=== PATIENT | female | born 1960 | race African-American/Black ===

== ENCOUNTER 2016-09-15 11:06 | Observation (INO) | payer BC ==
[~2016-09-15] VITALS: Ht 165.1 cm; Wt 77.6 kg
[~2016-09-15 11:06] MED LIST: lisinopril; multivitamin; prevacid
--- NOTE | 2016-09-15 11:27 | PHYS DOC ---
Past Medical History Past Medical History: GERD, Hypertension Additional Past Medical Histor: ischemic colitis Past Surgical History: Hysterectomy Additional Past Surgical Histo: LIGAMENTS AND TENDONS REPAIR ON RIGHT ARM Alcohol Use: Occasionally Drug Use: None Adult General Chief Complaint Chief Complaint: MULTIPLE COMPLAINTS [facility] HPI Patient is a 55 year old female who presents with right sided substernal chest pain that went to her right shoulder and into her jaw. It started this morning partially hour prior to arrival. She states is a sharp stabbing pain. Nothing makes the pain better or worse. Occasionally she felt short of breath. She denies fevers chills nausea or vomiting. Review of Systems Review of Systems Constitutional: Denies fever or chills [] Eyes: Denies change in visual acuity, redness, or eye pain [] HENT: Denies nasal congestion or sore throat [] Respiratory: Denies cough or shortness of breath [] Cardiovascular: No additional information not addressed in HPI [] GI: Denies abdominal pain, nausea, vomiting, bloody stools or diarrhea [] : Denies dysuria or hematuria [] Musculoskeletal: Denies back pain or joint pain [] Integument: Denies rash or skin lesions [] Neurologic: Denies headache, focal weakness or sensory changes [] Endocrine: Denies polyuria or polydipsia [] Current Medications Current Medications Current Medications Medications (Trade) Dose Ordered Sig/Annika Start Time Stop Time Status Last Admin Dose Admin Info (Do NOT chart on this entry -- for MONITORING) 1 each PRN DAILY PRN 09/15/16 13:15 09/17/16 13:14 Iohexol (Omnipaque 300 Mg/ml) 75 ml 1X ONCE 09/15/16 13:15 09/15/16 13:16 DC 09/15/16 15:49 75 ML Morphine Sulfate 4 mg PRN Q15MIN PRN 09/15/16 12:00 09/16/16 04:00 DC 09/15/16 12:06 4 MG Nitroglycerin (Nitrostat) 0.4 mg PRN Q5MIN PRN 09/15/16 12:00 09/16/16 11:59 09/15/16 12:05 0.4 MG Ondansetron HCl (Zofran) 4 mg 1X ONCE 09/15/16 12:00 09/15/16 12:01 DC 09/15/16 12:06 4 MG Sodium Chloride 1,000 ml @ 100 mls/hr Q10H 09/15/16 11:47 09/15/16 21:46 DC 09/15/16 12:07 100 MLS/HR Allergies Allergies Physical Exam Physical Exam Constitutional: Well developed, well nourished, no acute distress, non-toxic appearance. [] HENT: Normocephalic, atraumatic, bilateral external ears normal, oropharynx moist, no oral exudates, nose normal. [] Eyes: PERRLA, EOMI, conjunctiva normal, no discharge. [] Neck: Normal range of motion, no tenderness, supple, no stridor. [] Cardiovascular:Heart rate regular rhythm, no murmur [] Lungs & Thorax: Bilateral breath sounds clear to auscultation [] Abdomen: Bowel sounds normal, soft, no tenderness, no masses, no pulsatile masses. [] Skin: Warm, dry, no erythema, no rash. [] Back: No tenderness, no CVA tenderness. [] Extremities: No tenderness, no cyanosis, no clubbing, ROM intact, no edema. [] Neurologic: Alert and oriented X 3, normal motor function, normal sensory function, no focal deficits noted. [] Psychologic: Affect normal, judgement normal, mood normal. [] Current Patient Data Vital Signs Vital Signs Date Time Temp Pulse Resp B/P (MAP) Pulse Ox O2 Delivery O2 Flow Rate FiO2 09/15/16 13:20 94 126/65 (85) 98 Room Air 09/15/16 12:06 16 09/15/16 11:20 98.2 98.2 Lab Values Laboratory Tests Test 09/15/16 12:00 09/15/16 12:20 White Blood Count 5.7 x10^3/uL (4.0-11.0) Red Blood Count 4.29 x10^6/uL (3.50-5.40) Hemoglobin 12.4 g/dL (12.0-15.5) Hematocrit 37.0 % (36.0-47.0) Mean Corpuscular Volume 86 fL (79-100) Mean Corpuscular Hemoglobin 29 pg (25-35) Mean Corpuscular Hemoglobin Concent 34 g/dL (31-37) Red Cell Distribution Width 14.2 % (11.5-14.5) Platelet Count 282 x10^3/uL (140-400) Neutrophils (%) (Auto) 50 % (31-73) Lymphocytes (%) (Auto) 33 % (24-48) Monocytes (%) (Auto) 9 % (0-9) Eosinophils (%) (Auto) 8 % (0-3) H Basophils (%) (Auto) 1 % (0-3) Neutrophils # (Auto) 2.9 x10^3uL (1.8-7.7) Lymphocytes # (Auto) 1.9 x10^3/uL (1.0-4.8) Monocytes # (Auto) 0.5 x10^3/uL (0.0-1.1) Eosinophils # (Auto) 0.4 x10^3/uL (0.0-0.7) Basophils # (Auto) 0.0 x10^3/uL (0.0-0.2) Prothrombin Time 12.5 SEC (11.7-14.0) Prothrombin Time INR 1.0 (0.8-1.1) D-Dimer (Olamide) 0.72 ug/mlFEU (0.00-0.50) H Sodium Level 145 mmol/L (136-145) Potassium Level 4.0 mmol/L (3.5-5.1) Chloride Level 105 mmol/L (98-107) Carbon Dioxide Level 36 mmol/L (21-32) H Anion Gap 4 (6-14) L Blood Urea Nitrogen 19 mg/dL (7-20) Creatinine 0.8 mg/dL (0.6-1.0) Estimated GFR (Cockcroft-Gault) 90.4 Glucose Level 92 mg/dL (70-99) Calcium Level 9.9 mg/dL (8.5-10.1) Magnesium Level 2.3 mg/dL (1.8-2.4) Total Bilirubin 0.3 mg/dL (0.2-1.0) Direct Bilirubin 0.1 mg/dL (0.0-0.2) Aspartate Amino Transferase (AST) 16 U/L (15-37) Alanine Aminotransferase (ALT) 24 U/L (14-59) Alkaline Phosphatase 61 U/L (46-116) Creatine Kinase 100 U/L (26-192) Creatine Kinase MB (Mass) 0.8 ng/mL (0.0-3.6) Creatine Kinase MB Relative Index 0.8 % (0-4) Troponin I Quantitative < 0.017 ng/mL (0.000-0.055) RK-Ccf-Z-Type Natriuretic Peptide 14 pg/mL (0-124) Total Protein 7.7 g/dL (6.4-8.2) Albumin 4.1 g/dL (3.4-5.0) Lipase 63 U/L (73-393) L Thyroid Stimulating Hormone (TSH) 1.271 uIU/mL (0.358-3.74) Urine Collection Type Unknown Urine Color Yellow Urine Clarity Clear Urine pH 7.5 Urine Specific [place] 1.010 Urine Protein Negative mg/dL (NEG-TRACE) Urine Glucose (UA) Negative mg/dL (NEG) Urine Ketones (Stick) Negative mg/dL (NEG) Urine Blood Trace (NEG) Urine Nitrite Negative (NEG) Urine Bilirubin Negative (NEG) Urine Urobilinogen Dipstick 0.2 mg/dL (0.2 mg/dL) Urine Leukocyte Esterase Negative (NEG) Urine RBC 3-5 /HPF (0-2) Urine WBC 0 /HPF (0-4) Urine Squamous Epithelial Cells Mod /LPF Urine Bacteria 0 /HPF (0-FEW) Urine Opiates Screen Pos (NEG) Urine Methadone Screen Neg (NEG) Urine Barbiturates Neg (NEG) Urine Phencyclidine Screen Neg (NEG) Urine Amphetamine/Methamphetamine Neg (NEG) Urine Benzodiazepines Screen Neg (NEG) Urine Cocaine Screen Neg (NEG) Urine Cannabinoids Screen Neg (NEG) Urine Ethyl Alcohol Neg (NEG) Laboratory Tests 09/15/16 12:00 Laboratory Tests 09/15/16 12:00 EKG EKG EKG shows sinus tachycardia [address] elevations or T-wave inversions, normal axis, QTC 460 ms, as interpreted by me. Radiology/Procedures Radiology/Procedures [facility] [address] [place], [place] [id number] IMAGING REPORT Signed PATIENT: ALTAGRACIA FLORES ACCOUNT: [id number] : 1960 LOCATION: ER AGE: 55 SEX: F EXAM STATUS: REG ER ORD. PHYSICIAN: DAPHNE TREVINO MD REASON: CHEST PAIN WITH RIGHT NECK AND ARM PAIN PROCEDURE: PORTABLE CHEST 1V Portable AP upright view CXR: Clinical indications: Right-sided chest pain and neck pain and arm pain. Comparison: Chest x-ray for abdominal series dated April 23, 2015.. Findings: No acute lung infiltrate or pleural effusion or pulmonary edema or lung mass or pneumothorax is seen. The heart size, pulmonary vasculature, mediastinum and both chelsea are stable. Impression: No acute radiographic abnormality is seen. DICTATED and SIGNED BY: RANDALL MADRIGAL MD DATE: 09/15/16 1234 CC: DAPHNE TREVINO MD; DENZEL HERNANDEZ MD ~ Impressions: Chest pain Course & Med Decision Making Course & Med Decision Making Pertinent Labs and Imaging studies reviewed. (See chart for details) EKG sinus tachycardia, remainder of her labs are nonacute. Except for d-dimer is elevated. Chest CT angio is pending at this time. Patient's being admitted to Dr. Hernandez with CT angiogram pending. Interim orders have been written. Patient's in stable condition this time. Dragon Disclaimer Dragon Disclaimer This electronic medical record was generated, in whole or in part, using a voice recognition dictation system. Departure Departure Referrals: DENZEL HERNANDEZ MD (PCP) DAPHNE TREVINO MD Sep 15, 2016 11:27
[2016-09-15] MEDS ORDERED: IV NORMAL SALINE 1000ML BAG 1,000 ML IV SCH (11:47)
[2016-09-15] MEDS ORDERED: MORPHINE SULFATE 4 MG/ML DISP.SYRIN. IV/SQ PRN (12:00)
[2016-09-15] MEDS ORDERED: NITROGLYCERIN SUBLINGUAL 0.4 MG BOTTLE OF 25. SL PRN (12:00)
[2016-09-15] MEDS ORDERED: ONDANSETRON PF 4 MG/2 ML VIAL. IV ONE (12:00)
[2016-09-15 12:23] LABS: BASO % 1 % (0-3); EOS % 8 % (0-3); HEMOGLOBIN 12.4 g/dL (12.0-15.5); LYMPH # 1.9 x10^3/uL (1.0-4.8); LYMPH % 33 % (24-48); MEAN CORPUSCULAR HEMOGLOBIN 29 pg (25-35); MEAN CORPUSCULAR HGB CONC 34 g/dL (31-37); MEAN CORPUSCULAR VOLUME 86 fL (79-100); MONO % 9 % (0-9); NEUT % 50 % (31-73); PLATELET COUNT 282 x10^3/uL (140-400); RED BLOOD COUNT 4.29 x10^6/uL (3.50-5.40); RED CELL DISTRIBUTION WIDTH 14.2 % (11.5-14.5); WHITE BLOOD COUNT 5.7 x10^3/uL (4.0-11.0)
[2016-09-15 12:31] LABS: CALCIUM 9.9 mg/dL (8.5-10.1); CREATININE 0.8 mg/dL (0.6-1.0); GFR 90.4
[2016-09-15 12:35] LABS: BARBITURATES NEG (NEG); BENZODIAZEPINES NEG (NEG); CANNABINOIDS NEG (NEG); COCAINE NEG (NEG); METHADONE NEG (NEG); OPIATES POS (NEG); PHENCYCLIDINE NEG (NEG)
--- NOTE | 2016-09-15 12:38 | RAD ---
Portable AP upright view CXR: Clinical indications: Right-sided chest pain and neck pain and arm pain. Comparison: Chest x-ray for abdominal series dated April 23, 2015.. Findings: No acute lung infiltrate or pleural effusion or pulmonary edema or lung mass or pneumothorax is seen. The heart size, pulmonary vasculature, mediastinum and both chelsea are stable. Impression: No acute radiographic abnormality is seen.
[2016-09-15 12:39] LABS: PROTHROMBIN TIME PATIENT 12.5 SEC (11.7-14.0)
[2016-09-15 12:41] LABS: ALBUMIN 4.1 g/dL (3.4-5.0); CKMB MASS 0.8 ng/mL (0.0-3.6); DIRECT BILIRUBIN 0.1 mg/dL (0.0-0.2); MAGNESIUM 2.3 mg/dL (1.8-2.4); TOTAL BILIRUBIN 0.3 mg/dL (0.2-1.0); TOTAL PROTEIN 7.7 g/dL (6.4-8.2)
[2016-09-15 12:50] LABS: BILIRUBIN,URINE NEGATIVE (NEG); GLUCOSE,URINE NEGATIVE (NEG); NITRITE,URINE NEGATIVE (NEG); PH,URINE 7.5; PROTEIN,URINE NEGATIVE (NEG-TRACE); UROBILINOGEN,URINE 0.2 mg/dL (0.2 mg/dL)
[2016-09-15 13:15] LABS: BACTERIA,URINE 0 /HPF (0-FEW); SQUAMOUS EPITHELIAL CELL,UR MOD /LPF; WBC,URINE 0 /HPF (0-4)
[2016-09-15] MEDS ORDERED: IOHEXOL 300 MG/ML 75 ML VIAL IV ONE (13:15)
[2016-09-15] MEDS ORDERED: CONTRAST GIVEN MC PRN (13:15)
[2016-09-15] MEDS ORDERED: LIDOCAINE 1% / SOD BICARB 8.4% 20 ML VIAL. IJ ONE (14:45)
[2016-09-15 16:00] VITALS: BP 121/74
[2016-09-15] MEDS ORDERED: ONDANSETRON PF 4 MG/2 ML VIAL. IV PRN (16:00)
--- NOTE | 2016-09-15 16:00 | EKG ---
[facility] [address] [place] [address] Test Date: 2016-09-15 Test Time: 11:23:16 Pat Name: ALTAGRACIA FLORES Department: Room: 512 1 Gender: F Director Critical Care: : 1960 Requested By: DAPHNE TREVINO Order Number: [id number] Reading MD: Tiana Jurado Measurements Intervals [place] Rate: 104 P: 43 [place]: 152 QRS: 10 QRSD: 90 T: 62 QT: 356 QTc: 468 Interpretive Statements SINUS TACHYCARDIA INCOMPLETE RIGHT BUNDLE BRANCH BLOCK Electronically Signed On 09-18-2016 21:01:24 CDT by Tiana Jurado
--- NOTE | 2016-09-15 16:10 | RAD ---
Indication: Shortness of air and chest pain. Axial imaging through the chest was performed after the administration of intravenous contrast and utilizing the CT angiography protocol. Multiplanar, 3-D and MIP reformations were also performed. The study is somewhat compromised due to suboptimal opacification of the pulmonary arterial system. Central pulmonary arteries are without evidence of thromboembolism. No filling defects are seen. The more distal pulmonary arteries cannot be evaluated. The thoracic aorta is without evidence of dissection. The heart is enlarged. No pericardial or pleural fluid is detected. Parenchymal evaluation demonstrates some calcified granulomas in the right middle lobe and lingula. No infiltrates are detected. The upper abdomen shows rounded low densities in the right lobe of the liver, presumably cysts. Impression: 1. Suboptimal opacification of the pulmonary arterial system but no central emboli are identified. No acute feature is detected. PQRS Compliance Statement: One or more of the following individualized dose reduction techniques were utilized for this examination: 1. Automated exposure control 2. Adjustment of the mA and/or kV according to patient size 3. Use of iterative reconstruction technique
[2016-09-15] MEDS: HYDROCORTISONE ACETATE 25 MG SUPP.RECT PR SCH ×2 (16:30→20:28)
[2016-09-15] MEDS: MORPHINE SULFATE 4 MG/ML DISP.SYRIN. IV PRN ×2 (16:57→20:32)
[2016-09-15] MEDS ORDERED: LISI40TA PO (18:07)
[2016-09-15] MEDS ORDERED: AMLO5TAB2 PO (18:07)
[2016-09-15] MEDS ORDERED: POLY17PO29 PO (18:07)
[2016-09-15 19:00] VITALS: BP 133/60
[2016-09-15] MEDS ORDERED: POLYETHYLENE GLYCOL 3350 17 GM PACKET. PO PRN (20:45)
[2016-09-15 23:00] VITALS: BP 148/70
[2016-09-16 03:00] VITALS: BP 143/79
[2016-09-16] MEDS: BUTALB/APAP/CAFEIN 50/325/40MG TABLET. PO PRN ×2 (03:52→21:21)
[2016-09-16] MEDS: PHENYLEPH/MINERAL OIL/PETROLAT RECTAL OINTMENT 28GM TUBE. RC PRN (03:53)
[2016-09-16] MEDS: MORPHINE SULFATE 4 MG/ML DISP.SYRIN. IV PRN ×3 (03:53→15:09)
[2016-09-16 04:54] LABS: BASO % 1 % (0-3); EOS % 8 % (0-3); HEMATOCRIT 36.1 % (36.0-47.0); HEMOGLOBIN 11.8 g/dL (12.0-15.5); LYMPH # 1.9 x10^3/uL (1.0-4.8); LYMPH % 31 % (24-48); MEAN CORPUSCULAR HEMOGLOBIN 29 pg (25-35); MEAN CORPUSCULAR HGB CONC 33 g/dL (31-37); MEAN CORPUSCULAR VOLUME 88 fL (79-100); MONO % 8 % (0-9); NEUT % 53 % (31-73); PLATELET COUNT 276 x10^3/uL (140-400); RED BLOOD COUNT 4.13 x10^6/uL (3.50-5.40); RED CELL DISTRIBUTION WIDTH 14.1 % (11.5-14.5); WHITE BLOOD COUNT 6.2 x10^3/uL (4.0-11.0)
[2016-09-16 05:28] LABS: CALCIUM 9.5 mg/dL (8.5-10.1); CREATININE 0.8 mg/dL (0.6-1.0); GFR 90.4
[2016-09-16 07:00] VITALS: BP 115/69
[2016-09-16] MEDS: LISINOPRIL 40 MG TABLET. PO SCH (08:13)
[2016-09-16] MEDS: amLODIPine BESYLATE 5 MG TABLET PO SCH (08:13)
--- NOTE | 2016-09-16 09:51 | PDOC ---
Provider Note Provider Note pt seen.H&P to be dictated. rt side neck and chest pain, CTA neg for PE. headaches ? trigeminal neuralgia will do MRI brain d/c home later today. labs WESTON Copeland MD Sep 16, 2016 09:51
[2016-09-16] MEDS ORDERED: BUTA1CAP29 PO (09:55)
--- NOTE | 2016-09-16 10:06 | PDOC1 ---
HISTORY AND PHYSICAL Chief Complaint Chief Complaint This year 56 old female has been admitted with a chief complaint of rt side neck pain and chest pain started yesterday morning . Problems: Past Medical History PMH htn, ischemic colitis hemorrhoids Past Surgical History Past Surgical History: Hysterectomy Past Family History Family History: Hypertension Past Social History PSH no smoking or alcohol or drugs Review of Symptoms Review of Symptoms General ROS: positive for - rt side chest pain and headaches Psychological ROS: negative Ophthalmic ROS: negative ENT ROS: negative Allergy and Immunology ROS: negative Hematology and Lymphatic: negative Endocrine ROS: negative Respiratory ROS: no cold, cough, dyspnea. Cardiovascular ROS: no chest pain or dyspnea on exertion Gastrointestinal ROS: no abdominal pain, change in bowel habits, or black or bloody stools Genito-Urinary ROS: no dysuria, trouble voiding, or hematuria Musculoskeletal ROS: no pain Neurological ROS: negative Dermatological ROS: no rash Medications Current Medications Acetaminophen/ Butalbital/ Caffeine (Fioricet) 1 tab PRN Q6HRS PRN PO MIGRAINE HEADACHE Last administered on 09/16/16 03:52; Start 09/16/16 at 03:45 Amlodipine Besylate (Norvasc) 5 mg DAILY PO Last administered on 09/16/16 08: 13; Start 09/16/16 at 09:00 Hydrocortisone Acetate (Anucort-Hc) 25 mg BID WI Last administered on 20:28; Start 09/15/16 at 16:30; Stop 09/16/16 at 03:52; Status DC Info (Do NOT chart on this entry -- for MONITORING) 1 each PRN DAILY PRN MC SEE COMMENTS; Start 09/15/16 at 13:15; Stop 09/17/16 at 13:14 Iohexol (Omnipaque 300 Mg/ml) 75 ml 1X ONCE IV Last administered on 09/15/16 15:49; Start 09/15/16 at 13:15; Stop 09/15/16 at 13:16; Status DC Lidocaine/Sodium Bicarbonate (Buffered Lidocaine 1%) 20 ml 1X ONCE IJ ; Start 09/15/16 at 14:45; Stop 09/15/16 at 14:46; Status DC Lisinopril (Prinivil) 40 mg DAILY PO Last administered on 09/16/16 08:13; Start 09/16/16 at 09:00 Morphine Sulfate 4 mg PRN Q15MIN PRN IV/SQ PAIN GREATER THAN 3/10 Last administered on 09/15/16 12:06; Start 09/15/16 at 12:00; Stop 09/16/16 at 04:00 ; Status DC Morphine Sulfate 4 mg PRN Q2HR PRN IV PAIN Last administered on 09/16/16 08:29 ; Start 09/15/16 at 16:00; Stop 09/16/16 at 15:59 Nitroglycerin (Nitrostat) 0.4 mg PRN Q5MIN PRN SL CP RATING > 1/10 Last administered on 09/15/16 12:05; Start 09/15/16 at 12:00; Stop 09/16/16 at 11:59 Ondansetron HCl (Zofran) 4 mg 1X ONCE IV Last administered on 09/15/16 12:06 ; Start 09/15/16 at 12:00; Stop 09/15/16 at 12:01; Status DC Ondansetron HCl (Zofran) 4 mg PRN Q8HRS PRN IV NAUSEA/VOMITING Last administered on 09/16/16 03:56; Start 09/15/16 at 16:00; Stop 09/16/16 at 15:59 Phenyleph/Shark Oil/Min Oil/Petrol (Preparation H) 1 estephanie PRN Q6HRS PRN RC RECTAL PAIN Last administered on 09/16/16 03:53; Start 09/16/16 at 03:45 Polyethylene Glycol (miraLAX PACKET) 17 gm PRN DAILY PRN PO CONSTIPATION; Start 09/15/16 at 20:45 Sodium Chloride 1,000 ml @ 100 mls/hr Q10H IV Last administered on 09/15/16 12:07; Start 09/15/16 at 11:47; Stop 09/15/16 at 21:46; Status DC Allergy Allergies Coded Allergies Type Severity Reaction Last Updated Verified amoxicillin Allergy Intermediate 09/15/16 Yes ciprofloxacin Allergy Intermediate Itching 09/16/16 Yes ciprofloxacin HCl Allergy Intermediate Itching 09/16/16 Yes clavulanic acid Allergy Intermediate 09/15/16 Yes Physical Exam Physical Exam General appearance - alert,well appearing, and in no distress and oriented to person, place, and time Mental Status - alert, oriented to person, place, and time, affect appropriate to mood Head - normal Chest - clear to auscultation, no wheezes, rales or rhonchi, symmetric air entry Heart - S1 and S2 normal Abdomen - soft, nontender, nondistended, no masses or organomegaly Neurological - alert and oriented Musculoskeletal - no muscular tenderness noted Extremities - no pedal edema Skin - warm and dry Labs Laboratory Tests Test 09/15/16 12:00 09/15/16 12:20 09/15/16 21:40 09/16/16 03:45 White Blood Count 5.7 x10^3/uL (4.0-11.0) 6.2 x10^3/uL (4.0-11.0) Red Blood Count 4.29 x10^6/uL (3.50-5.40) 4.13 x10^6/uL (3.50-5.40) Hemoglobin 12.4 g/dL (12.0-15.5) 11.8 g/dL (12.0-15.5) Hematocrit 37.0 % (36.0-47.0) 36.1 % (36.0-47.0) Mean Corpuscular Volume 86 fL (79-100) 88 fL (79-100) Mean Corpuscular Hemoglobin 29 pg (25-35) 29 pg (25-35) Mean Corpuscular Hemoglobin Concent 34 g/dL (31-37) 33 g/dL (31-37) Red Cell Distribution Width 14.2 % (11.5-14.5) 14.1 % (11.5-14.5) Platelet Count 282 x10^3/uL (140-400) 276 x10^3/uL (140-400) Neutrophils (%) (Auto) 50 % (31-73) 53 % (31-73) Lymphocytes (%) (Auto) 33 % (24-48) 31 % (24-48) Monocytes (%) (Auto) 9 % (0-9) 8 % (0-9) Eosinophils (%) (Auto) 8 % (0-3) 8 % (0-3) Basophils (%) (Auto) 1 % (0-3) 1 % (0-3) Neutrophils # (Auto) 2.9 x10^3uL (1.8-7.7) 3.3 x10^3uL (1.8-7.7) Lymphocytes # (Auto) 1.9 x10^3/uL (1.0-4.8) 1.9 x10^3/uL (1.0-4.8) Monocytes # (Auto) 0.5 x10^3/uL (0.0-1.1) 0.5 x10^3/uL (0.0-1.1) Eosinophils # (Auto) 0.4 x10^3/uL (0.0-0.7) 0.5 x10^3/uL (0.0-0.7) Basophils # (Auto) 0.0 x10^3/uL (0.0-0.2) 0.0 x10^3/uL (0.0-0.2) Prothrombin Time 12.5 SEC (11.7-14.0) Prothromb Time International Ratio 1.0 (0.8-1.1) D-Dimer (Olamide) 0.72 ug/mlFEU (0.00-0.50) Sodium Level 145 mmol/L (136-145) Potassium Level 4.0 mmol/L (3.5-5.1) Chloride Level 105 mmol/L (98-107) Carbon Dioxide Level 36 mmol/L (21-32) Anion Gap 4 (6-14) Blood Urea Nitrogen 19 mg/dL (7-20) Creatinine 0.8 mg/dL (0.6-1.0) Estimated GFR (Cockcroft-Gault) 90.4 Glucose Level 92 mg/dL (70-99) Calcium Level 9.9 mg/dL (8.5-10.1) Magnesium Level 2.3 mg/dL (1.8-2.4) Total Bilirubin 0.3 mg/dL (0.2-1.0) Direct Bilirubin 0.1 mg/dL (0.0-0.2) Aspartate Amino Transf (AST/SGOT) 16 U/L (15-37) Alanine Aminotransferase (ALT/SGPT) 24 U/L (14-59) Alkaline Phosphatase 61 U/L (46-116) Creatine Kinase 100 U/L (26-192) Creatine Kinase MB (Mass) 0.8 ng/mL (0.0-3.6) Creatine Kinase MB Relative Index 0.8 % (0-4) Troponin I Quantitative < 0.017 ng/mL (0.000-0.055) < 0.017 ng/mL (0.000-0.055) NK-Pkq-T-Type Natriuretic Peptide 14 pg/mL (0-124) Total Protein 7.7 g/dL (6.4-8.2) Albumin 4.1 g/dL (3.4-5.0) Lipase 63 U/L (73-393) Thyroid Stimulating Hormone (TSH) 1.271 uIU/mL (0.358-3.74) Urine Collection Type Unknown Urine Color Yellow Urine Clarity Clear Urine pH 7.5 Urine Specific [place] 1.010 Urine Protein Negative mg/dL (NEG-TRACE) Urine Glucose (UA) Negative mg/dL (NEG) Urine Ketones (Stick) Negative mg/dL (NEG) Urine Blood Trace (NEG) Urine Nitrite Negative (NEG) Urine Bilirubin Negative (NEG) Urine Urobilinogen Dipstick 0.2 mg/dL (0.2 mg/dL) Urine Leukocyte Esterase Negative (NEG) Urine RBC 3-5 /HPF (0-2) Urine WBC 0 /HPF (0-4) Urine Squamous Epithelial Cells Mod /LPF Urine Bacteria 0 /HPF (0-FEW) Urine Opiates Screen Pos (NEG) Urine Methadone Screen Neg (NEG) Urine Barbiturates Neg (NEG) Urine Phencyclidine Screen Neg (NEG) Urine Amphetamine/Methamphetamine Neg (NEG) Urine Benzodiazepines Screen Neg (NEG) Urine Cocaine Screen Neg (NEG) Urine Cannabinoids Screen Neg (NEG) Urine Ethyl Alcohol Neg (NEG) Test 09/16/16 03:48 Sodium Level 142 mmol/L (136-145) Potassium Level 4.0 mmol/L (3.5-5.1) Chloride Level 103 mmol/L (98-107) Carbon Dioxide Level 30 mmol/L (21-32) Anion Gap 9 (6-14) Blood Urea Nitrogen 15 mg/dL (7-20) Creatinine 0.8 mg/dL (0.6-1.0) Estimated GFR (Cockcroft-Gault) 90.4 Glucose Level 114 mg/dL (70-99) Calcium Level 9.5 mg/dL (8.5-10.1) Troponin I Quantitative < 0.017 ng/mL (0.000-0.055) Laboratory Tests Test 09/15/16 12:00 09/15/16 12:20 09/15/16 21:40 09/16/16 03:45 White Blood Count 5.7 x10^3/uL (4.0-11.0) 6.2 x10^3/uL (4.0-11.0) Red Blood Count 4.29 x10^6/uL (3.50-5.40) 4.13 x10^6/uL (3.50-5.40) Hemoglobin 12.4 g/dL (12.0-15.5) 11.8 g/dL (12.0-15.5) Hematocrit 37.0 % (36.0-47.0) 36.1 % (36.0-47.0) Mean Corpuscular Volume 86 fL (79-100) 88 fL (79-100) Mean Corpuscular Hemoglobin 29 pg (25-35) 29 pg (25-35) Mean Corpuscular Hemoglobin Concent 34 g/dL (31-37) 33 g/dL (31-37) Red Cell Distribution Width 14.2 % (11.5-14.5) 14.1 % (11.5-14.5) Platelet Count 282 x10^3/uL (140-400) 276 x10^3/uL (140-400) Neutrophils (%) (Auto) 50 % (31-73) 53 % (31-73) Lymphocytes (%) (Auto) 33 % (24-48) 31 % (24-48) Monocytes (%) (Auto) 9 % (0-9) 8 % (0-9) Eosinophils (%) (Auto) 8 % (0-3) 8 % (0-3) Basophils (%) (Auto) 1 % (0-3) 1 % (0-3) Neutrophils # (Auto) 2.9 x10^3uL (1.8-7.7) 3.3 x10^3uL (1.8-7.7) Lymphocytes # (Auto) 1.9 x10^3/uL (1.0-4.8) 1.9 x10^3/uL (1.0-4.8) Monocytes # (Auto) 0.5 x10^3/uL (0.0-1.1) 0.5 x10^3/uL (0.0-1.1) Eosinophils # (Auto) 0.4 x10^3/uL (0.0-0.7) 0.5 x10^3/uL (0.0-0.7) Basophils # (Auto) 0.0 x10^3/uL (0.0-0.2) 0.0 x10^3/uL (0.0-0.2) Prothrombin Time 12.5 SEC (11.7-14.0) Prothromb Time International Ratio 1.0 (0.8-1.1) D-Dimer (Olamide) 0.72 ug/mlFEU (0.00-0.50) Sodium Level 145 mmol/L (136-145) Potassium Level 4.0 mmol/L (3.5-5.1) Chloride Level 105 mmol/L (98-107) Carbon Dioxide Level 36 mmol/L (21-32) Anion Gap 4 (6-14) Blood Urea Nitrogen 19 mg/dL (7-20) Creatinine 0.8 mg/dL (0.6-1.0) Estimated GFR (Cockcroft-Gault) 90.4 Glucose Level 92 mg/dL (70-99) Calcium Level 9.9 mg/dL (8.5-10.1) Magnesium Level 2.3 mg/dL (1.8-2.4) Total Bilirubin 0.3 mg/dL (0.2-1.0) Direct Bilirubin 0.1 mg/dL (0.0-0.2) Aspartate Amino Transf (AST/SGOT) 16 U/L (15-37) Alanine Aminotransferase (ALT/SGPT) 24 U/L (14-59) Alkaline Phosphatase 61 U/L (46-116) Creatine Kinase 100 U/L (26-192) Creatine Kinase MB (Mass) 0.8 ng/mL (0.0-3.6) Creatine Kinase MB Relative Index 0.8 % (0-4) Troponin I Quantitative < 0.017 ng/mL (0.000-0.055) < 0.017 ng/mL (0.000-0.055) MY-Syg-P-Type Natriuretic Peptide 14 pg/mL (0-124) Total Protein 7.7 g/dL (6.4-8.2) Albumin 4.1 g/dL (3.4-5.0) Lipase 63 U/L (73-393) Thyroid Stimulating Hormone (TSH) 1.271 uIU/mL (0.358-3.74) Urine Collection Type Unknown Urine Color Yellow Urine Clarity Clear Urine pH 7.5 Urine Specific [place] 1.010 Urine Protein Negative mg/dL (NEG-TRACE) Urine Glucose (UA) Negative mg/dL (NEG) Urine Ketones (Stick) Negative mg/dL (NEG) Urine Blood Trace (NEG) Urine Nitrite Negative (NEG) Urine Bilirubin Negative (NEG) Urine Urobilinogen Dipstick 0.2 mg/dL (0.2 mg/dL) Urine Leukocyte Esterase Negative (NEG) Urine RBC 3-5 /HPF (0-2) Urine WBC 0 /HPF (0-4) Urine Squamous Epithelial Cells Mod /LPF Urine Bacteria 0 /HPF (0-FEW) Urine Opiates Screen Pos (NEG) Urine Methadone Screen Neg (NEG) Urine Barbiturates Neg (NEG) Urine Phencyclidine Screen Neg (NEG) Urine Amphetamine/Methamphetamine Neg (NEG) Urine Benzodiazepines Screen Neg (NEG) Urine Cocaine Screen Neg (NEG) Urine Cannabinoids Screen Neg (NEG) Urine Ethyl Alcohol Neg (NEG) Test 09/16/16 03:48 Sodium Level 142 mmol/L (136-145) Potassium Level 4.0 mmol/L (3.5-5.1) Chloride Level 103 mmol/L (98-107) Carbon Dioxide Level 30 mmol/L (21-32) Anion Gap 9 (6-14) Blood Urea Nitrogen 15 mg/dL (7-20) Creatinine 0.8 mg/dL (0.6-1.0) Estimated GFR (Cockcroft-Gault) 90.4 Glucose Level 114 mg/dL (70-99) Calcium Level 9.5 mg/dL (8.5-10.1) Troponin I Quantitative < 0.017 ng/mL (0.000-0.055) Vitals Vital Signs Date Time Temp Pulse Resp B/P (MAP) Pulse Ox O2 Delivery O2 Flow Rate FiO2 09/16/16 08:40 Room Air 09/16/16 08:29 16 09/16/16 08:13 96 115/69 09/16/16 07:00 98.1 97 98.1 VTE Prophylaxis VTE Prophylaxis Devices: Yes VTE Pharmacological Prophylaxi: No Assessment CHEST PAIN: Chest wall pain HYPERTENSION: Benign hypertension STROKE: OTHER (headaches ,trigeminal neuralgia?) Plan Plan CTA chest -neg for PE. Will do MRI of brain labs good, cxr -ve ekg pending anusol for hemorrhoids d/c home later today. fu out pt fiarunacet for headaches and pain WESTON RAMSEY MD Sep 16, 2016 10:06
[2016-09-16 10:46] VITALS: BP 117/61
[2016-09-16] MEDS ORDERED: diazePAM 5 MG TABLET PO ONE (15:30)
[2016-09-16] MEDS ORDERED: GADOBUTROL 7.5 MMOL/7.5 ML VIAL IV ONE (17:30)
[2016-09-16 19:00] VITALS: BP 112/57
--- NOTE | 2016-09-16 21:59 | RAD ---
MRI Brain without and with IV contrast. History: Headache and right facial numbness. Comparison: None. Technique: Multiplanar multisequence MRI of the brain was performed both prior to and after intravenous administration of 7.5 mL Gadavist. In addition to routine sequences, thin pre and postcontrast axial and coronal T1 through the internal auditory canals was performed as well as thin T2-weighted sequence through the internal auditory canals. Findings: Ventricles and sulci appear appropriate for patient age. There is no shift in midline structures; there is no evidence of intracranial mass or significant mass effect. There is no evidence of acute intracranial hemorrhage. No abnormal extra-axial fluid collections are identified. There is no restricted diffusion to suggest acute infarction. There is no evidence of CP angle mass. No 5th or 7th nerve schwannomas are seen. No areas of abnormal contrast enhancement are seen. Mild ethmoid mucosal disease is seen. Impression: 1. Unremarkable examination. Electronically signed by: Blane Farmer MD (09/16/2016 6:03 PM)
[2016-09-16 23:00] VITALS: BP 117/62
[2016-09-17] MEDS: BUTALB/APAP/CAFEIN 50/325/40MG TABLET. PO PRN (06:02)
[2016-09-17] MEDS: PHENYLEPH/MINERAL OIL/PETROLAT RECTAL OINTMENT 28GM TUBE. RC PRN (06:02)
[2016-09-17 07:00] VITALS: BP 131/79
[2016-09-17] MEDS: LISINOPRIL 40 MG TABLET. PO SCH (08:21)
[2016-09-17 08:22] VITALS: BP 131/79
[2016-09-17] MEDS: amLODIPine BESYLATE 5 MG TABLET PO SCH (08:22)
--- NOTE | 2016-09-17 09:50 | PDOC ---
PROGRESS NOTES Subjective Subjective feels better ,no cp or headaches Objective Objective Vital Signs Date Time Temp Pulse Resp B/P (MAP) Pulse Ox O2 Delivery O2 Flow Rate FiO2 09/17/16 08:22 80 131/79 09/17/16 07:45 Room Air 09/17/16 07:00 97.7 18 97 97.7 Intake and Output 09/17/16 07:00 Intake Total 1300 ml Balance 1300 ml Intake Oral 1300 ml # Voids 5 Physical Exam Abdomen: Normal bowel sounds, Soft Heart: Normal S1, Normal S2 Extremities: No clubbing General: Alert, Oriented X3 HEENT: Atraumatic Lungs: Clear to auscultation MUSCULOSKELETAL: No joint tenderness Neck: Supple Neuro: Normal gait, Normal speech Psych/Mental Status: Mental status NL Skin: No breakdown Diagnosis Problem List Problems Medical Problems: (1) Chest pain Status: Acute CHEST PAIN: Chest wall pain HYPERTENSION: Benign hypertension STROKE: OTHER (headaches ,trigeminal neuralgia?) Assessment Assessment Problems Medical Problems: (1) Chest pain Status: Acute Assessment CHEST PAIN: Chest wall pain HYPERTENSION: Benign hypertension STROKE: OTHER (headaches ,trigeminal neuralgia?) Plan Plan;MRI brain done late last night.-ve can go home today. cholesterol high, watch diet. f/u pcp in 1 week. CTA chest -neg for PE. Will do MRI of brain labs good, cxr -ve ekg pending anusol for hemorrhoids d/c home later today. fu out pt fiorecet for headaches and pain Problems: Plan Plan of Care Problems Medical Problems: (1) Chest pain Status: Acute Comment Review of Relevant I have reviewed the following items anne (where applicable) has been applied. Medications Current Medications Diazepam (Valium) 5 mg 1X ONCE PO Last administered on 09/16/16 16:30; Start 09/16/16 at 15:30; Stop 09/16/16 at 15:31; Status DC Gadobutrol (Gadavist) 7.5 mmol 1X ONCE IV Last administered on 09/16/16 17:49 ; Start 09/16/16 at 17:30; Stop 09/16/16 at 17:31; Status DC Vitals/I & O Vital Sign - Last 24 Hours 09/16/16 09/16/16 09/16/16 09/16/16 10:19 10:46 15:09 19:00 Temp 98.6 97.9 98.6 97.9 Pulse 86 95 Resp 16 18 18 18 B/P (MAP) 117/61 (79) 112/57 (75) Pulse Ox 96 97 O2 Delivery Room Air Room Air Room Air Room Air 09/16/16 09/16/16 09/17/16 09/17/16 19:39 23:00 07:00 07:45 Temp 98.1 97.7 98.1 97.7 Pulse 90 80 Resp 18 18 B/P (MAP) 117/62 (80) 131/79 (96) Pulse Ox 96 97 O2 Delivery Room Air Room Air Room Air Room Air 09/17/16 09/17/16 08:21 08:22 Pulse 80 80 B/P (MAP) 131/79 131/79 Intake and Output 09/16/16 09/16/16 09/17/16 15:00 23:00 07:00 Intake Total 500 ml 800 ml Balance 500 ml 800 ml WESTON RAMSEY MD Sep 17, 2016 09:50
--- NOTE | 2016-09-20 09:37 | PDOC3 ---
IM DISCHARGE SUMMARY Date of Admission Date of Admission Date of Admission: Sep 15, 2016 at 13:30 Date of Discharge Date of Discharge August Primary Diagnosis Primary Diagnosis Problems Medical Problems: (1) Chest pain Status: Acute rt side neck pain and headaches Problems: Consults Consults none Procedures Procedures CTA chest MRI brain Brief hospital course Brief hospital course This is 55 year old female who presented with chest pain rt side and neck pain and headaches. cxr ,ekg and cardiac enzymes neg.CTA chest -ve for PE.MRI brain neg for any lesions.. She was feeling better , d/c ed home. For more details regarding the past history, family history, social history, surgical history and other details, please refer to History and Physical. Allergy Allergies Coded Allergies Type Severity Reaction Last Updated Verified amoxicillin Allergy Intermediate 09/15/16 Yes ciprofloxacin Allergy Intermediate Itching 09/16/16 Yes ciprofloxacin HCl Allergy Intermediate Itching 09/16/16 Yes clavulanic acid Allergy Intermediate 09/15/16 Yes Follow up in 5 days. DISPOSITION: Home Comments Discharge Management - 20 minutes. For other details please refer to discharge instructions WESTON RAMSEY MD Sep 20, 2016 09:37
== END 2016-09-17 10:52 | disposition home or self-care (01) ==
LOC: ER 11:06 → 5 NORTH 13:30
PROVIDERS: ADMIT Internal Medicine; ATTEND Internal Medicine
DX: R07.89 Other chest pain (principal); R51 Headache; M54.2 Cervicalgia; G50.0 Trigeminal neuralgia; I63.9 Cerebral infarction, unspecified; K55.9 Vascular disorder of intestine, unspecified; I10 Essential (primary) hypertension; K21.9 Gastro-esophageal reflux disease without esophagitis; Z82.49 Family history of ischemic heart disease and other diseases of the circulatory system; Z90.710 Acquired absence of both cervix and uterus
CPT/HCPCS: 36415; 70553; 71010; 71275; 80048; 80061; 80076; 81001; 82553; 83690; 83735; 83880; 84443; 84484; 85027; 85379; 85610; 93005; 96361; 96374; 96375; 96376; 99285; G0378; G0481; J2270; J2405; J7030; Q9967; G0379; A9585

== ENCOUNTER 2016-10-20 05:36 | Emergency (ER) | payer BC, OTHER ==
[~2016-10-20] VITALS: Ht 165.1 cm; Wt 77.6 kg
[~2016-10-20 05:36] MED LIST changes: +AMLO5TAB2 PO; +BUTA1CAP29 PO; +LISI40TA PO; +POLY17PO29 PO
[2016-10-20] MEDS ORDERED: ONDANSETRON PF 4 MG/2 ML VIAL. ONE (05:42)
[2016-10-20] MEDS ORDERED: ONDANSETRON PF 4 MG/2 ML VIAL. IV ONE ×2 (06:00→06:15)
[2016-10-20] MEDS ORDERED: IV NORMAL SALINE 1000ML BAG 1,000 ML IV ONE (06:00)
[2016-10-20 06:13] LABS: BASO # 0.1 x10^3/uL (0.0-0.2); BASO % 1 % (0-3); EOS % 2 % (0-3); HEMOGLOBIN 12.6 g/dL (12.0-15.5); LYMPH # 2.7 x10^3/uL (1.0-4.8); LYMPH % 38 % (24-48); MEAN CORPUSCULAR HEMOGLOBIN 29 pg (25-35); MEAN CORPUSCULAR HGB CONC 32 g/dL (31-37); MEAN CORPUSCULAR VOLUME 88 fL (79-100); MONO % 6 % (0-9); NEUT % 53 % (31-73); PLATELET COUNT 281 x10^3/uL (140-400); RED BLOOD COUNT 4.42 x10^6/uL (3.50-5.40); WHITE BLOOD COUNT 7.1 x10^3/uL (4.0-11.0)
[2016-10-20] MEDS ORDERED: IV NORMAL SALINE 500ML BAG 500 ML IV ONE (06:15)
[2016-10-20 06:24] LABS: CREATININE 0.9 mg/dL (0.6-1.0)
[2016-10-20] MEDS: HYDROmorphone 2 MG/ML VIAL IV PRN ×2 (06:27→07:52)
[2016-10-20 06:29] LABS: ALBUMIN 3.9 g/dL (3.4-5.0); ALBUMIN/GLOBULIN RATIO 1.1 (1.0-1.7); TOTAL BILIRUBIN 0.4 mg/dL (0.2-1.0); TOTAL PROTEIN 7.3 g/dL (6.4-8.2)
--- NOTE | 2016-10-20 07:20 | PHYS DOC ---
Past Medical History Past Medical History: GERD, Hypertension Additional Past Medical Histor: ischemic colitis Past Surgical History: Appendectomy, Hysterectomy Additional Past Surgical Histo: LIGAMENTS AND TENDONS REPAIR ON RIGHT ARM Alcohol Use: Occasionally Drug Use: None Adult General Chief Complaint Chief Complaint: ABDOMINAL PAIN HPI HPI 55-year-old female presenting to the emergency department today with belly pain in the epigastrium that is mild nonradiating associated with nausea and vomiting. She denies any hematochezia hematemesis or melena. She reports a history of ischemic colitis which after chart review appears to be from a CT of the abdomen in 2013 which showed small bowel thickening of which ischemic colitis was in the differential but not definitively diagnosed. She describes the pain as a burning pain that is nonradiating and without any alleviating factors. She also does have a history of GERD. She denies chest pain or shortness of breath. She denies fevers or chills. Review of systems is negative for chest pain shortness of breath. Negative for fevers or rashes. Positive for nausea and vomiting. All other review of systems is negative unless otherwise noted in history of present illness. ED course: 55-year-old female presenting with epigastric abdominal pain nausea and vomiting. Triage vital signs show the patient to be afebrile with a normal heart rate. Otherwise unremarkable. Pertinent physical exam findings show that she is not in any distress and nontoxic appearing. Abdomen is soft and nontender palpation. Pain is not out of proportion. Initial clinical evaluation not suggestive of ischemic colitis or acute mesenteric ischemia. IV fluids nausea and pain medication ordered along with blood work and CT angiogram of the abdomen pelvis. On reexamination of the patient, her abdomen continues to be soft and nontender. Pain is easily controlled with opioid medications. Patient is feeling better. Reviewing the patient's blood work, CBC unremarkable. Chemistry panel unremarkable other than very mild hyperglycemia and mild BUN elevation. Lipase normal. Angiogram unremarkable for acute ischemia. Patient was subsequent discharged home. The patient was then discharged home in stable condition to follow up with their primary care physician over the next 2-3 days. They were to return if their symptoms worsened or if they were concerned for any reason. Smof-nw-hbra discharge instructions and return precautions were given. Patient's questions were answered to their satisfaction. Patient is comfortable plan. Review of Systems Review of Systems SEE ABOVE. Current Medications Current Medications Current Medications Medications (Trade) Dose Ordered Sig/Annika Start Time Stop Time Status Last Admin Dose Admin Hydromorphone HCl (Dilaudid) 0.5 mg PRN Q30MIN PRN 10/20/16 06:15 10/20/16 07:52 0.5 MG Iohexol (Omnipaque 350 Mg/ml) 90 ml 1X ONCE 10/20/16 07:30 10/20/16 07:31 DC 10/20/16 08:27 90 ML Ondansetron HCl (Zofran) 4 mg 1X ONCE 10/20/16 06:15 10/20/16 06:16 DC 10/20/16 06:27 4 MG Sodium Chloride 500 ml @ 500 mls/hr 1X ONCE 10/20/16 06:15 10/20/16 07:08 DC Allergies Allergies Allergies Coded Allergies Type Severity Reaction Last Updated Verified amoxicillin Allergy Intermediate 09/15/16 Yes ciprofloxacin Allergy Intermediate Itching 09/16/16 Yes ciprofloxacin HCl Allergy Intermediate Itching 09/16/16 Yes clavulanic acid Allergy Intermediate 09/15/16 Yes Physical Exam Physical Exam SEE ABOVE Constitutional: Well developed, well nourished, no acute distress, non-toxic appearance. [] HENT: Normocephalic, atraumatic, bilateral external ears normal, oropharynx moist, no oral exudates, nose normal. [] Eyes: PERRLA, EOMI, conjunctiva normal, no discharge. [] Neck: Normal range of motion, no tenderness, supple, no stridor. [] Cardiovascular:Heart rate regular rhythm, no murmur [] Lungs & Thorax: Bilateral breath sounds clear to auscultation [] Abdomen: Bowel sounds normal, soft, no tenderness, no masses, no pulsatile masses. [] Skin: Warm, dry, no erythema, no rash. [] Back: No tenderness, no CVA tenderness. [] Extremities: No tenderness, no cyanosis, no clubbing, ROM intact, no edema. [] Neurologic: Alert and oriented X 3, normal motor function, normal sensory function, no focal deficits noted. [] Psychologic: Affect normal, judgement normal, mood normal. [] Current Patient Data Vital Signs Vital Signs Date Time Temp Pulse Resp B/P (MAP) Pulse Ox O2 Delivery O2 Flow Rate FiO2 10/20/16 07:59 90 136/63 (87) 96 Room Air 10/20/16 07:52 18 10/20/16 05:44 98.1 98.1 Lab Values Laboratory Tests Test 10/20/16 06:00 10/20/16 07:10 10/20/16 08:23 White Blood Count 7.1 x10^3/uL (4.0-11.0) Red Blood Count 4.42 x10^6/uL (3.50-5.40) Hemoglobin 12.6 g/dL (12.0-15.5) Hematocrit 39.0 % (36.0-47.0) Mean Corpuscular Volume 88 fL (79-100) Mean Corpuscular Hemoglobin 29 pg (25-35) Mean Corpuscular Hemoglobin Concent 32 g/dL (31-37) Red Cell Distribution Width 14.0 % (11.5-14.5) Platelet Count 281 x10^3/uL (140-400) Neutrophils (%) (Auto) 53 % (31-73) Lymphocytes (%) (Auto) 38 % (24-48) Monocytes (%) (Auto) 6 % (0-9) Eosinophils (%) (Auto) 2 % (0-3) Basophils (%) (Auto) 1 % (0-3) Neutrophils # (Auto) 3.8 x10^3uL (1.8-7.7) Lymphocytes # (Auto) 2.7 x10^3/uL (1.0-4.8) Monocytes # (Auto) 0.4 x10^3/uL (0.0-1.1) Eosinophils # (Auto) 0.1 x10^3/uL (0.0-0.7) Basophils # (Auto) 0.1 x10^3/uL (0.0-0.2) Sodium Level 138 mmol/L (136-145) Potassium Level 4.0 mmol/L (3.5-5.1) Chloride Level 101 mmol/L (98-107) Carbon Dioxide Level 25 mmol/L (21-32) Anion Gap 12 (6-14) Blood Urea Nitrogen 21 mg/dL (7-20) H Creatinine 0.9 mg/dL (0.6-1.0) Estimated GFR (Cockcroft-Gault) 79.0 BUN/Creatinine Ratio 23 (6-20) H Glucose Level 147 mg/dL (70-99) H Calcium Level 9.0 mg/dL (8.5-10.1) Total Bilirubin 0.4 mg/dL (0.2-1.0) Aspartate Amino Transferase (AST) 27 U/L (15-37) Alanine Aminotransferase (ALT) 25 U/L (14-59) Alkaline Phosphatase 54 U/L (46-116) Total Protein 7.3 g/dL (6.4-8.2) Albumin 3.9 g/dL (3.4-5.0) Albumin/Globulin Ratio 1.1 (1.0-1.7) Lipase 69 U/L (73-393) L Lactic Acid Level 1.1 mmol/L (0.4-2.0) Urine Collection Type Unknown Urine Color Yellow Urine Clarity Clear Urine pH 7.5 Urine Specific [place] 1.010 Urine Protein Negative mg/dL (NEG-TRACE) Urine Glucose (UA) Negative mg/dL (NEG) Urine Ketones (Stick) Negative mg/dL (NEG) Urine Blood Trace (NEG) Urine Nitrite Negative (NEG) Urine Bilirubin Negative (NEG) Urine Urobilinogen Dipstick 0.2 mg/dL (0.2 mg/dL) Urine Leukocyte Esterase Negative (NEG) Urine RBC 1-2 /HPF (0-2) Urine WBC Occ /HPF (0-4) Urine Squamous Epithelial Cells Few /LPF Urine Bacteria 0 /HPF (0-FEW) Urine Mucus Slight /LPF Laboratory Tests 10/20/16 06:00 Laboratory Tests 10/20/16 06:00 EKG EKG [] Radiology/Procedures Radiology/Procedures [] Course & Med Decision Making Course & Med Decision Making Pertinent Labs and Imaging studies reviewed. (See chart for details) [] Dragon Disclaimer Dragon Disclaimer This electronic medical record was generated, in whole or in part, using a voice recognition dictation system. Departure Departure Impression: Primary Impression: Abdominal pain Disposition: HOME, SELF-CARE Condition: STABLE Referrals: DENZEL LOERA MD (PCP) Patient Instructions: Abdominal Pain Additional Instructions: Thank you for allowing us to participate in your care today. Followup with your primary care physician in 3 days if your symptoms do not improve. Call your Primary Doctor tomorrow and inform them of your visit today. If you do not have a primary care provider you can ask for a list of our primary care providers. Return to the emergency department you have any new or concerning findings. This should be evaluated by the primary care physician and any necessary consulting services for continued management within a few days after discharge. Return to emergency room if you have any new or concerning symptoms including but not limited to fever, chills, nausea, vomiting, intractable pain, any new rashes, chest pain, shortness of air, uncontrolled bleeding, difficulty breathing, and/or vision loss. You may have been prescribed medication that can change in your level of thinking and ability to operate machinery. These medications include hydrocodone and Ativan. Also, Benadryl has been known to do this as well. Be sure to check with your pharmacist and ask if the medications you've prescribed can affect your level of consciousness. I recommend not operating heavy machinery or driving while on medication such as these. Scripts Ondansetron (ZOFRAN ODT) 4 Mg Tab.rapdis 1 TAB SL PRN Q8HRS Y for NAUSEA, #6 TAB Prov: JAIRO TEJADA MD 10/20/16 Hydrocodone Bit/Acetaminophen (HYDROCODONE-APAP 5-325 ) 1 Each Tablet 1 TAB PO PRN Q6HRS Y for PAIN, #15 TAB 0 Refills Be careful as this medication may cause you to be drowsy or tired. Do not drive on this medication. Prov: JAIRO TEJADA MD 10/20/16 JAIRO TEJADA MD Oct 20, 2016 07:20
[2016-10-20] MEDS ORDERED: IOHEXOL 350 MG/ML 100 ML VIAL. IV ONE (07:30)
[2016-10-20 08:36] LABS: BILIRUBIN,URINE NEGATIVE (NEG); GLUCOSE,URINE NEGATIVE (NEG); NITRITE,URINE NEGATIVE (NEG); PH,URINE 7.5; PROTEIN,URINE NEGATIVE (NEG-TRACE); UROBILINOGEN,URINE 0.2 mg/dL (0.2 mg/dL)
[2016-10-20 08:46] LABS: BACTERIA,URINE 0 /HPF (0-FEW); SQUAMOUS EPITHELIAL CELL,UR FEW /LPF; WBC,URINE OCC /HPF (0-4)
--- NOTE | 2016-10-20 09:00 | RAD ---
CTA of the abdomen and pelvis with contrast, 10/20/2016: History: Abdominal and back pain Multidetector CT imaging was performed following an IV bolus injection of iodinated contrast material. Multiplanar reconstructions were produced including MIP and 3-D volume rendered reconstructions. There is moderate aortoiliac calcific plaquing. There is no evidence of aneurysm or dissection. There is mild narrowing of the celiac artery origin due to atherosclerotic plaquing. There is also mild plaquing involving the the proximal renal arteries and the superior mesenteric artery origin. There is no evidence of high-grade stenosis. A patent inferior mesenteric artery is present. The iliac and common femoral arteries are widely patent. Incidental findings include the presence of several small well-defined low density hepatic lesions compatible with cysts. There is a small left renal cyst. There are moderate scattered degenerative changes in the lumbar spine. IMPRESSION: 1. Moderate aortic atherosclerosis without evidence of aneurysm or dissection. 2. Hepatic and left renal cysts. 3. Moderate degenerative change of the lumbar spine PQRS Compliance Statement: One or more of the following individualized dose reduction techniques were utilized for this examination: 1. Automated exposure control 2. Adjustment of the mA and/or kV according to patient size 3. Use of iterative reconstruction technique
[2016-10-20 09:17] VITALS: BP 128/58
[2016-10-20] MEDS ORDERED: ONDA4TAB10 SL (09:17)
[2016-10-20] MEDS ORDERED: HYDR-2758 PO (09:17)
== END 2016-10-20 09:30 | disposition home or self-care (01) ==
LOC: ER 05:36
DX: R10.13 Epigastric pain (principal); K21.9 Gastro-esophageal reflux disease without esophagitis; I10 Essential (primary) hypertension; Z90.710 Acquired absence of both cervix and uterus; Z90.49 Acquired absence of other specified parts of digestive tract; Z88.1 Allergy status to other antibiotic agents
CPT/HCPCS: 36415; 74174; 80053; 81001; 83605; 83690; 85027; 96374; 96375; 99285; J1170; J2405; J7030; Q9967

== ENCOUNTER 2018-08-11 01:23 | Inpatient (IN) | payer OTHER ==
[~2018-08-11] VITALS: Ht 165.1 cm; Wt 78.5 kg
[~2018-08-11 01:23] MED LIST changes: +AMLO5TAB10 PO; -AMLO5TAB2 PO; +HYDR-2761 PO; +LISI-130 PO; -LISI40TA PO; +ONDA4TAB10 SL
--- NOTE | 2018-08-11 01:50 | PHYS DOC ---
Past Medical History Past Medical History: GERD, Hypertension Additional Past Medical Histor: ischemic colitis Past Surgical History: Appendectomy, Hysterectomy Additional Past Surgical Histo: LIGAMENTS AND TENDONS REPAIR ON RIGHT ARM Alcohol Use: Occasionally Drug Use: None Adult General Chief Complaint Chief Complaint: ABDOMINAL PAIN HPI HPI Patient is a 57-year-old female who presents with complaint of upper abdominal pain that started at about 8:00 this morning. She states that pain is currently a 9 out of 10. She states the pain radiates into her back. She reports nausea but is had no vomiting. She states that her last bowel movement was this morning. She states that it was normal. She denies any fever. She describes it as like a cramp or contraction. She states that she is not .[] Review of Systems Review of Systems Constitutional: Denies fever or chills [] Respiratory: Denies cough or shortness of breath [] Cardiovascular: No additional information not addressed in HPI [] GI: Complains of abdominal pain with nausea. Denies vomiting or diarrhea [] : Denies dysuria or hematuria [] Musculoskeletal: Admits to mid back pain [] All other systems were reviewed and found to be within normal limits, except as documented in this note. Current Medications Current Medications Current Medications Medications (Trade) Dose Ordered Sig/Annika Start Time Stop Time Status Last Admin Dose Admin Fentanyl Citrate (Fentanyl 2ml Vial) 50 mcg PRN Q15MIN PRN 08/11/18 01:45 08/12/18 01:44 08/11/18 05:47 50 MCG Hydromorphone HCl (Dilaudid) 0.5 mg 1X ONCE 08/11/18 05:00 08/11/18 05:01 DC 08/11/18 04:56 0.5 MG Info (CONTRAST GIVEN -- Rx MONITORING) 1 each PRN DAILY PRN 08/11/18 03:45 08/13/18 03:44 Iohexol (Omnipaque 300 Mg/ml) 75 ml 1X ONCE 08/11/18 04:00 08/11/18 04:01 DC 08/11/18 03:56 75 ML Metronidazole 100 ml @ 100 mls/hr 1X ONCE 08/11/18 05:00 08/11/18 05:59 08/11/18 04:56 100 MLS/HR Ondansetron HCl (Zofran) 4 mg 1X ONCE 08/11/18 02:00 08/11/18 02:01 DC 08/11/18 02:37 4 MG Sodium Chloride 1,000 ml @ 1,000 mls/hr Q1H 08/11/18 02:00 08/11/18 02:59 DC 08/11/18 02:13 1,000 MLS/HR Allergies Allergies Allergies Coded Allergies Type Severity Reaction Last Updated Verified amoxicillin Allergy Intermediate 09/15/16 Yes ciprofloxacin Allergy Intermediate Itching 09/16/16 Yes ciprofloxacin HCl Allergy Intermediate Itching 09/16/16 Yes clavulanic acid Allergy Intermediate 09/15/16 Yes Physical Exam Physical Exam Constitutional: Well developed, well nourished, in mild distress, non-toxic appearance. [] HENT: Normocephalic, atraumatic, bilateral external ears normal, oropharynx moist, no oral exudates, nose normal. [] Eyes: PERRLA, EOMI, conjunctiva normal, no discharge. [] Neck: Normal range of motion, no tenderness, supple, no stridor. [] Cardiovascular: Regular rate and rhythm[] Lungs & Thorax: Bilateral breath sounds clear to auscultation [] Abdomen: Bowel sounds normal, soft, with moderate upper abdominal tenderness. [] Skin: Warm, dry, no erythema, no rash. [] Extremities: No tenderness, no cyanosis, no clubbing, ROM intact, no edema. [] Neurologic: Alert and oriented X 3, no focal deficits noted. [] Current Patient Data Vital Signs Vital Signs Date Time Temp Pulse Resp B/P (MAP) Pulse Ox O2 Delivery O2 Flow Rate FiO2 08/11/18 05:47 98 Room Air 08/11/18 01:30 98.6 84 20 154/76 (102) 98.6 Lab Values Laboratory Tests Test 08/11/18 01:30 08/11/18 02:01 08/11/18 02:35 Urine Collection Type Unknown Urine Color Yellow Urine Clarity Clear Urine pH 6.0 Urine Specific [place] 1.015 Urine Protein Negative mg/dL (NEG-TRACE) Urine Glucose (UA) Negative mg/dL (NEG) Urine Ketones (Stick) Negative mg/dL (NEG) Urine Blood Small (NEG) Urine Nitrite Negative (NEG) Urine Bilirubin Negative (NEG) Urine Urobilinogen Dipstick 0.2 mg/dL (0.2 mg/dL) Urine Leukocyte Esterase Negative (NEG) Urine RBC 6-10 /HPF (0-2) Urine WBC Occ /HPF (0-4) Urine Squamous Epithelial Cells Few /LPF Urine Bacteria 0 /HPF (0-FEW) Urine Mucus Slight /LPF White Blood Count 14.5 x10^3/uL (4.0-11.0) H Red Blood Count 4.11 x10^6/uL (3.50-5.40) Hemoglobin 12.1 g/dL (12.0-15.5) Hematocrit 36.7 % (36.0-47.0) Mean Corpuscular Volume 89 fL (79-100) Mean Corpuscular Hemoglobin 29 pg (25-35) Mean Corpuscular Hemoglobin Concent 33 g/dL (31-37) Red Cell Distribution Width 14.0 % (11.5-14.5) Platelet Count 329 x10^3/uL (140-400) Neutrophils (%) (Auto) 70 % (31-73) Lymphocytes (%) (Auto) 22 % (24-48) L Monocytes (%) (Auto) 8 % (0-9) Eosinophils (%) (Auto) 0 % (0-3) Basophils (%) (Auto) 1 % (0-3) Neutrophils # (Auto) 10.1 x10^3uL (1.8-7.7) H Lymphocytes # (Auto) 3.2 x10^3/uL (1.0-4.8) Monocytes # (Auto) 1.1 x10^3/uL (0.0-1.1) Eosinophils # (Auto) 0.0 x10^3/uL (0.0-0.7) Basophils # (Auto) 0.1 x10^3/uL (0.0-0.2) Sodium Level 141 mmol/L (136-145) Potassium Level 4.1 mmol/L (3.5-5.1) Chloride Level 104 mmol/L (98-107) Carbon Dioxide Level 26 mmol/L (21-32) Anion Gap 11 (6-14) Blood Urea Nitrogen 26 mg/dL (7-20) H Creatinine 0.9 mg/dL (0.6-1.0) Estimated GFR (Cockcroft-Gault) 78.4 BUN/Creatinine Ratio 29 (6-20) H Glucose Level 116 mg/dL (70-99) H Calcium Level 9.1 mg/dL (8.5-10.1) Total Bilirubin 0.3 mg/dL (0.2-1.0) Aspartate Amino Transferase (AST) 14 U/L (15-37) L Alanine Aminotransferase (ALT) 22 U/L (14-59) Alkaline Phosphatase 50 U/L (46-116) Total Protein 6.6 g/dL (6.4-8.2) Albumin 3.6 g/dL (3.4-5.0) Albumin/Globulin Ratio 1.2 (1.0-1.7) Lipase 70 U/L (73-393) L Laboratory Tests 08/11/18 02:01 Laboratory Tests 08/11/18 02:35 EKG EKG [] Radiology/Procedures Radiology/Procedures [] Impressions: PROCEDURE: CT ABD PELV W/ IV CONTRST ONLY CT abdomen and pelvis with contrast. HISTORY: Upper abdominal pain CT scan the abdomen and pelvis was done using 75 mL Omnipaque 300 contrast. Sagittal and coronal reconstructed images were reviewed. Lung bases are clear. There is a calcified granuloma in the left lower lobe. There is no effusion. There are cysts in the liver. No other liver lesion is noted. There is a possible small gallstone the gallbladder. The gallbladder wall was not thickened. Spleen and adrenal glands are normal. Pancreas is normal. There is a cyst at the upper left kidney. There is no renal mass or hydronephrosis. There is no ureteral calculus. There is no free air. There is moderate stool in the colon. Patient had an appendectomy. Patient's had a hysterectomy. There is a trace of fluid in the pelvis. There is wall thickening of the loop of small bowel in the midabdomen. There is mild inflammation in the mesentery surrounding the bowel loop with thickened bowel wall. There is mild dilatation the small bowel at the location of the bowel wall thickening. The terminal ileum is nondilated. Bowel appears to be adherent to the anterior abdominal wall. There is mild narrowing of the celiac artery. The superior mesenteric artery is patent. The inferior mesenteric artery is patent. IMPRESSION: 1. Bowel wall thickening of the mid small bowel loop with inflammation in the mesentery surrounding this bowel loop. 2. Mildly dilated bowel at that location but without severe obstruction. 3. Possible gallstone. Electronically signed by: Matthew Ashton MD (08/11/2018 4:12 AM) [facility] Course & Med Decision Making Course & Med Decision Making Pertinent Labs and Imaging studies reviewed. (See chart for details) [] Dragon Disclaimer Dragon Disclaimer This electronic medical record was generated, in whole or in part, using a voice recognition dictation system. Departure Departure Impression: Primary Impression: Enteritis Disposition: ADMITTED INPATIENT Admitting Physician: Tino Loera Condition: IMPROVED Referrals: TINO LOERA MD (PCP) Scripts Ondansetron Hcl (ZOFRAN) 4 Mg Tablet 4 MG PO PRN TID PRN for NAUSEA, #15 nausea/vomiting Prov: JAROD WOOTEN Jr. DO 08/11/18 Hydrocodone Bit/Acetaminophen (HYDROCODONE-APAP 7.5-325 ) 1 Tab Tablet 1 TAB PO PRN Q6HRS PRN for PAIN, #12 TAB 0 Refills Prov: JAROD WOOTEN Jr. DO 08/11/18 Cefdinir (CEFDINIR) 300 Mg Capsule 1 CAP PO BID, #20 CAP Prov: JAROD WOOTEN Jr. DO 08/11/18 Metronidazole (FLAGYL) 500 Mg Tablet 500 MG PO TID for 10 Days, #30 TAB Prov: JAROD WOOTEN Jr. DO 08/11/18 JAROD WOOTEN Jr. DO August 11, 2018 01:50
[2018-08-11 01:54] LABS: BILIRUBIN,URINE NEGATIVE (NEG); CLARITY,URINE CLEAR; COLOR,URINE YELLOW; NITRITE,URINE NEGATIVE (NEG); PROTEIN,URINE NEGATIVE (NEG-TRACE); UROBILINOGEN,URINE 0.2 mg/dL (0.2 mg/dL)
[2018-08-11] MEDS ORDERED: IV NORMAL SALINE 1000ML BAG 1,000 ML IV SCH (02:00)
[2018-08-11] MEDS ORDERED: ONDANSETRON PF 4 MG/2 ML VIAL. IV ONE (02:00)
[2018-08-11 02:01] LABS: BACTERIA,URINE 0 /HPF (0-FEW); SQUAMOUS EPITHELIAL CELL,UR FEW /LPF; WBC,URINE OCC /HPF (0-4)
[2018-08-11 02:08] LABS: BASO # 0.1 x10^3/uL (0.0-0.2); BASO % 1 % (0-3); EOS % 0 % (0-3); HEMATOCRIT 36.7 % (36.0-47.0); HEMOGLOBIN 12.1 g/dL (12.0-15.5); LYMPH # 3.2 x10^3/uL (1.0-4.8); LYMPH % 22 % (24-48); MEAN CORPUSCULAR HEMOGLOBIN 29 pg (25-35); MEAN CORPUSCULAR HGB CONC 33 g/dL (31-37); MEAN CORPUSCULAR VOLUME 89 fL (79-100); MONO # 1.1 x10^3/uL (0.0-1.1); MONO % 8 % (0-9); NEUT # 10.1 x10^3uL (1.8-7.7); NEUT % 70 % (31-73); PLATELET COUNT 329 x10^3/uL (140-400); RED BLOOD COUNT 4.11 x10^6/uL (3.50-5.40); WHITE BLOOD COUNT 14.5 x10^3/uL (4.0-11.0)
[2018-08-11] MEDS: fentaNYL PF VIAL 100 MCG/2 ML VIAL IV PRN ×4 (02:37→10:45)
[2018-08-11 02:59] LABS: CALCIUM 9.1 mg/dL (8.5-10.1); CREATININE 0.9 mg/dL (0.6-1.0); GFR 78.4; POTASSIUM 4.1 mmol/L (3.5-5.1)
[2018-08-11 03:04] LABS: ALBUMIN 3.6 g/dL (3.4-5.0); ALBUMIN/GLOBULIN RATIO 1.2 (1.0-1.7); TOTAL BILIRUBIN 0.3 mg/dL (0.2-1.0); TOTAL PROTEIN 6.6 g/dL (6.4-8.2)
[2018-08-11] MEDS ORDERED: CONTRAST GIVEN. MC PRN (03:45)
[2018-08-11] MEDS ORDERED: IOHEXOL 300 MG/ML 100ML VIAL. IV ONE (04:00)
--- NOTE | 2018-08-11 04:15 | RAD ---
CT abdomen and pelvis with contrast. HISTORY: Upper abdominal pain CT scan the abdomen and pelvis was done using 75 mL Omnipaque 300 contrast. Sagittal and coronal reconstructed images were reviewed. Lung bases are clear. There is a calcified granuloma in the left lower lobe. There is no effusion. There are cysts in the liver. No other liver lesion is noted. There is a possible small gallstone the gallbladder. The gallbladder wall was not thickened. Spleen and adrenal glands are normal. Pancreas is normal. There is a cyst at the upper left kidney. There is no renal mass or hydronephrosis. There is no ureteral calculus. There is no free air. There is moderate stool in the colon. Patient had an appendectomy. Patient's had a hysterectomy. There is a trace of fluid in the pelvis. There is wall thickening of the loop of small bowel in the midabdomen. There is mild inflammation in the mesentery surrounding the bowel loop with thickened bowel wall. There is mild dilatation the small bowel at the location of the bowel wall thickening. The terminal ileum is nondilated. Bowel appears to be adherent to the anterior abdominal wall. There is mild narrowing of the celiac artery. The superior mesenteric artery is patent. The inferior mesenteric artery is patent. IMPRESSION: 1. Bowel wall thickening of the mid small bowel loop with inflammation in the mesentery surrounding this bowel loop. 2. Mildly dilated bowel at that location but without severe obstruction. 3. Possible gallstone. Electronically signed by: Matthew Ashton MD (08/11/2018 4:12 AM) [id number]
[2018-08-11] MEDS ORDERED: HYDROmorphone 2 MG/ML VIAL IV ONE (05:00)
[2018-08-11] MEDS ORDERED: ONDA4TAB7 PO (05:23)
[2018-08-11] MEDS ORDERED: HYDR-2765 PO (05:23)
[2018-08-11] MEDS ORDERED: METR500T PO (05:23)
[2018-08-11] MEDS ORDERED: CEFD300C PO (05:23)
[2018-08-11] MEDS ORDERED: ONDANSETRON PF 4 MG/2 ML VIAL. IV PRN (06:00)
[2018-08-11] MEDS: IV NORMAL SALINE 1000ML BAG 1,000 ML IV SCH ×3 (06:00→22:00)
--- NOTE | 2018-08-11 06:51 | EKG ---
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
[2018-08-11] MEDS ORDERED: ATOR40TA59 PO (07:35)
[2018-08-11] MEDS ORDERED: MUPI22OI2 TP (07:35)
[2018-08-11] MEDS ORDERED: LISI-334 PO (07:35)
[2018-08-11] MEDS ORDERED: CARV12.5 PO (07:35)
[2018-08-11] MEDS ORDERED: SPIR25TA5 PO (07:35)
[2018-08-11] MEDS ORDERED: METH4TAB7 PO (07:35)
[2018-08-11 08:02] VITALS: BP 134/83
--- NOTE | 2018-08-11 10:38 | PDOC ---
Infectious Disease Note Vital Sign Vital Signs Vital Signs Date Time Temp Pulse Resp B/P (MAP) Pulse Ox O2 Delivery O2 Flow Rate FiO2 08/11/18 08:02 97.5 82 16 134/83 (100) 98 Room Air 97.5 Labs Lab Laboratory Tests Test 08/11/18 01:30 08/11/18 02:01 08/11/18 02:35 Urine Collection Type Unknown Urine Color Yellow Urine Clarity Clear Urine pH 6.0 Urine Specific [place] 1.015 Urine Protein Negative mg/dL (NEG-TRACE) Urine Glucose (UA) Negative mg/dL (NEG) Urine Ketones (Stick) Negative mg/dL (NEG) Urine Blood Small (NEG) Urine Nitrite Negative (NEG) Urine Bilirubin Negative (NEG) Urine Urobilinogen Dipstick 0.2 mg/dL (0.2 mg/dL) Urine Leukocyte Esterase Negative (NEG) Urine RBC 6-10 /HPF (0-2) Urine WBC Occ /HPF (0-4) Urine Squamous Epithelial Cells Few /LPF Urine Bacteria 0 /HPF (0-FEW) Urine Mucus Slight /LPF White Blood Count 14.5 x10^3/uL (4.0-11.0) Red Blood Count 4.11 x10^6/uL (3.50-5.40) Hemoglobin 12.1 g/dL (12.0-15.5) Hematocrit 36.7 % (36.0-47.0) Mean Corpuscular Volume 89 fL (79-100) Mean Corpuscular Hemoglobin 29 pg (25-35) Mean Corpuscular Hemoglobin Concent 33 g/dL (31-37) Red Cell Distribution Width 14.0 % (11.5-14.5) Platelet Count 329 x10^3/uL (140-400) Neutrophils (%) (Auto) 70 % (31-73) Lymphocytes (%) (Auto) 22 % (24-48) Monocytes (%) (Auto) 8 % (0-9) Eosinophils (%) (Auto) 0 % (0-3) Basophils (%) (Auto) 1 % (0-3) Neutrophils # (Auto) 10.1 x10^3uL (1.8-7.7) Lymphocytes # (Auto) 3.2 x10^3/uL (1.0-4.8) Monocytes # (Auto) 1.1 x10^3/uL (0.0-1.1) Eosinophils # (Auto) 0.0 x10^3/uL (0.0-0.7) Basophils # (Auto) 0.1 x10^3/uL (0.0-0.2) Sodium Level 141 mmol/L (136-145) Potassium Level 4.1 mmol/L (3.5-5.1) Chloride Level 104 mmol/L (98-107) Carbon Dioxide Level 26 mmol/L (21-32) Anion Gap 11 (6-14) Blood Urea Nitrogen 26 mg/dL (7-20) Creatinine 0.9 mg/dL (0.6-1.0) Estimated GFR (Cockcroft-Gault) 78.4 BUN/Creatinine Ratio 29 (6-20) Glucose Level 116 mg/dL (70-99) Calcium Level 9.1 mg/dL (8.5-10.1) Total Bilirubin 0.3 mg/dL (0.2-1.0) Aspartate Amino Transf (AST/SGOT) 14 U/L (15-37) Alanine Aminotransferase (ALT/SGPT) 22 U/L (14-59) Alkaline Phosphatase 50 U/L (46-116) Total Protein 6.6 g/dL (6.4-8.2) Albumin 3.6 g/dL (3.4-5.0) Albumin/Globulin Ratio 1.2 (1.0-1.7) Lipase 70 U/L (73-393) Objective Assessment Gastritis from steroids and ibuprofen Abdominal pain, from # 1 , doubt ischemic colitis Recent rash , received medrol dose pack HTN h/o ischemic colitis Plan Plan of Care rocephine and flagyl supportive care NPO PPI d/w dr David OCHOA,TOSIN Davis MD August 11, 2018 10:38
--- NOTE | 2018-08-11 10:42 | PDOC2 ---
GI CONSULT Reason For Consult: enteritis; thickened SB/mesentery HPI: HPI: 57 y/o female admitted through ER. History limited this morning - she is quite uncomfortable. Sudden onset of diffuse abd burning yesterday at 8:00 a.m. She thinks maybe felt ill (achy) for a couple days before or maybe symptoms were precipitated by eating a caramel apple and salad. Not sure about aggravating or alleviating factors but Fentanyl isn't helping. Vomited bile in the ER. Had a couple small stools (?yesterday). Denies bleeding. H/o GERD - takes Nexium PRN and tried Zantac yesterday (ineffective). Typically no diarrhea or constipation. Denies previous EGD. Did have prior colonoscopy - had ischemic c olitis and says these symptoms are different because she's not bleeding. Uses BC powder and NSAIDs frequently. No GB, liver, pancreas, or PUD history. PMH: PMH: CAD, HTN, GERD, UTI, OA, pre-DM, ischemic colitis, hemorrhoids, hysterectomy FH: Family History: No pertinent hx Social History: Smoke: No ALCOHOL: none ROS: GEN: Denies fevers, chills, sweats HEENT: Denies blurred vision, sore throat CV: Denies chest pain RESP: Denies shortness of air, cough GI: Per HPI : Denies hematuria, dysuria ENDO: Denies weight changes NEURO: Denies confusion, dizziness MSK: Denies weakness, joint pain/swelling SKIN: Denies jaundice, pruritus Vitals: Vitals: Vital Signs Date Time Temp Pulse Resp B/P (MAP) Pulse Ox O2 Delivery O2 Flow Rate FiO2 08/11/18 08:02 97.5 82 16 134/83 (100) 98 Room Air 97.5 Labs: Labs: Laboratory Tests Test 08/11/18 01:30 08/11/18 02:01 08/11/18 02:35 Urine Collection Type Unknown Urine Color Yellow Urine Clarity Clear Urine pH 6.0 Urine Specific [place] 1.015 Urine Protein Negative mg/dL (NEG-TRACE) Urine Glucose (UA) Negative mg/dL (NEG) Urine Ketones (Stick) Negative mg/dL (NEG) Urine Blood Small (NEG) Urine Nitrite Negative (NEG) Urine Bilirubin Negative (NEG) Urine Urobilinogen Dipstick 0.2 mg/dL (0.2 mg/dL) Urine Leukocyte Esterase Negative (NEG) Urine RBC 6-10 /HPF (0-2) Urine WBC Occ /HPF (0-4) Urine Squamous Epithelial Cells Few /LPF Urine Bacteria 0 /HPF (0-FEW) Urine Mucus Slight /LPF White Blood Count 14.5 x10^3/uL (4.0-11.0) Red Blood Count 4.11 x10^6/uL (3.50-5.40) Hemoglobin 12.1 g/dL (12.0-15.5) Hematocrit 36.7 % (36.0-47.0) Mean Corpuscular Volume 89 fL (79-100) Mean Corpuscular Hemoglobin 29 pg (25-35) Mean Corpuscular Hemoglobin Concent 33 g/dL (31-37) Red Cell Distribution Width 14.0 % (11.5-14.5) Platelet Count 329 x10^3/uL (140-400) Neutrophils (%) (Auto) 70 % (31-73) Lymphocytes (%) (Auto) 22 % (24-48) Monocytes (%) (Auto) 8 % (0-9) Eosinophils (%) (Auto) 0 % (0-3) Basophils (%) (Auto) 1 % (0-3) Neutrophils # (Auto) 10.1 x10^3uL (1.8-7.7) Lymphocytes # (Auto) 3.2 x10^3/uL (1.0-4.8) Monocytes # (Auto) 1.1 x10^3/uL (0.0-1.1) Eosinophils # (Auto) 0.0 x10^3/uL (0.0-0.7) Basophils # (Auto) 0.1 x10^3/uL (0.0-0.2) Sodium Level 141 mmol/L (136-145) Potassium Level 4.1 mmol/L (3.5-5.1) Chloride Level 104 mmol/L (98-107) Carbon Dioxide Level 26 mmol/L (21-32) Anion Gap 11 (6-14) Blood Urea Nitrogen 26 mg/dL (7-20) Creatinine 0.9 mg/dL (0.6-1.0) Estimated GFR (Cockcroft-Gault) 78.4 BUN/Creatinine Ratio 29 (6-20) Glucose Level 116 mg/dL (70-99) Calcium Level 9.1 mg/dL (8.5-10.1) Total Bilirubin 0.3 mg/dL (0.2-1.0) Aspartate Amino Transf (AST/SGOT) 14 U/L (15-37) Alanine Aminotransferase (ALT/SGPT) 22 U/L (14-59) Alkaline Phosphatase 50 U/L (46-116) Total Protein 6.6 g/dL (6.4-8.2) Albumin 3.6 g/dL (3.4-5.0) Albumin/Globulin Ratio 1.2 (1.0-1.7) Lipase 70 U/L (73-393) Allergies: Coded Allergies: amoxicillin (Verified Allergy, Intermediate, 09/15/16) ciprofloxacin (Verified Allergy, Intermediate, Itching, 09/16/16) ciprofloxacin HCl (Verified Allergy, Intermediate, Itching, 09/16/16) clavulanic acid (Verified Allergy, Intermediate, 09/15/16) Medications: Current Medications Medications (Trade) Dose Ordered Sig/Annika Route PRN Reason Start Time Stop Time Status Last Admin Dose Admin Fentanyl Citrate (Fentanyl 2ml Vial) 50 mcg PRN Q15MIN PRN IV PAIN GREATER THAN 3/10 08/11/18 01:45 08/11/18 07:00 DC 08/11/18 05:47 Sodium Chloride 1,000 ml @ 1,000 mls/hr Q1H IV 08/11/18 02:00 08/11/18 02:59 DC 08/11/18 02:13 Ondansetron HCl (Zofran) 4 mg 1X ONCE IV 08/11/18 02:00 08/11/18 02:01 DC 08/11/18 02:37 Iohexol (Omnipaque 300 Mg/ml) 75 ml 1X ONCE IV 08/11/18 04:00 08/11/18 04:01 DC 08/11/18 03:56 Hydromorphone HCl (Dilaudid) 0.5 mg 1X ONCE IV 08/11/18 05:00 08/11/18 05:01 DC 08/11/18 04:56 Metronidazole 100 ml @ 100 mls/hr 1X ONCE IV 08/11/18 05:00 08/11/18 05:59 DC 08/11/18 04:56 Fentanyl Citrate (Fentanyl 2ml Vial) 50 mcg PRN Q1HR PRN IV SEVERE PAIN 08/11/18 06:00 08/12/18 05:59 08/11/18 09:03 Imaging: Imaging: CT A/P IMPRESSION: 1. Bowel wall thickening of the mid small bowel loop with inflammation in the mesentery surrounding this bowel loop. 2. Mildly dilated bowel at that location but without severe obstruction. 3. Possible gallstone. PE: GEN: uncomfortable, frequent changing of positions HEENT: Atraumatic, PERRL LUNGS: CTAB HEART: RRR ABD: quiet, S/ND, periumbilical tenderness is worst EXTREMITY: No edema SKIN: No rashes, no jaundice NEURO/PSYCH: A & O 3 A/P: A/P: Abd pain, vomiting Abnormal SB on CT GERD CRC screen H/o ischemic colitis NSAID use -- Reviewed w/ Dr. Bae - checking lactic acid, ask surgery to comment re: abnormal SB on CT. Per outside records, EGD and colonoscopy in 2008 - fairly unremarkable, nonspecific antral biopsies, hemorrhoids. Add acid-[employer]. NPO. NEGIN OATES August 11, 2018 10:42
[2018-08-11 11:00] VITALS: BP 149/75
--- NOTE | 2018-08-11 11:06 | PDOC ---
Provider Note Provider Note Patient seen. History and Physical dictated. See dictation#[id number] DENZEL LOERA MD August 11, 2018 11:06
[2018-08-11] MEDS ORDERED: MORPHINE SULFATE 2 MG/ML VIAL. IV PRN (11:15)
--- NOTE | 2018-08-11 11:26 | PDOC2 ---
LYDIAUGO Charbel PLY BANDER 08/11/18 1126: CONSULT Date of Consult Date of Consult DATE: 08/11/18 TIME: 11:19 Reason for Consult Reason for Consult: abnormal SB imaging Referring Physician Referring Physician: Dr Bae Identification/Chief Complaint Chief Complaint abdominal pain Source Source: Chart review, Patient History of Present Illness Reason for Visit: Acute onset of abdominal pain starting yesterday evening. Nausea present. Reports normal stools, may have some constipation, denies diarrhea. Similar symptoms 12 years ago, found to have ischemic colitis. Past Medical History Cardiovascular: CAD, HTN GI: GERD Past Surgical History Past Surgical History: Hysterectomy Family History Family History: Hypertension Social History No ALCOHOL: rare Drugs: None Lives: Alone Current Problem List Problem List Problems Medical Problems: (1) Enteritis Status: Acute Current Medications Current Medications Current Medications Fentanyl Citrate (Fentanyl 2ml Vial) 50 mcg PRN Q15MIN PRN IV PAIN GREATER THAN 3/10 Last administered on 08/11/18at 05:47; Start 08/11/18 at 01:45; Stop 08/11/18 at 07:00; Status DC Sodium Chloride 1,000 ml @ 1,000 mls/hr Q1H IV Last administered on 08/11/18at 02:13; Start 08/11/18 at 02:00; Stop 08/11/18 at 02:59; Status DC Ondansetron HCl (Zofran) 4 mg 1X ONCE IV Last administered on 08/11/18at 02:37; Start 08/11/18 at 02:00; Stop 08/11/18 at 02:01; Status DC Iohexol (Omnipaque 300 Mg/ml) 75 ml 1X ONCE IV Last administered on 08/11/18at 03:56; Start 08/11/18 at 04:00; Stop 08/11/18 at 04:01; Status DC Info (CONTRAST GIVEN -- Rx MONITORING) 1 each PRN DAILY PRN MC SEE COMMENTS; Start 08/11/18 at 03:45; Stop 08/13/18 at 03:44 Hydromorphone HCl (Dilaudid) 0.5 mg 1X ONCE IV Last administered on 08/11/18at 04:56; Start 08/11/18 at 05:00; Stop 08/11/18 at 05:01; Status DC Metronidazole 100 ml @ 100 mls/hr 1X ONCE IV Last administered on 08/11/18at 04:56; Start 08/11/18 at 05:00; Stop 08/11/18 at 05:59; Status DC Ondansetron HCl (Zofran) 4 mg PRN Q8HRS PRN IV NAUSEA/VOMITING 1ST CHOICE; Start 08/11/18 at 06:00; Stop 08/12/18 at 05:59 Fentanyl Citrate (Fentanyl 2ml Vial) 50 mcg PRN Q1HR PRN IV SEVERE PAIN Last administered on 08/11/18at 10:45; Start 08/11/18 at 06:00; Stop 08/11/18 at 11:14; Status DC Sodium Chloride 1,000 ml @ 125 mls/hr Q8H IV Last administered on 08/11/18at 06:00; Start 08/11/18 at 06:00; Stop 08/12/18 at 05:59 Amlodipine Besylate (Norvasc) 10 mg DAILY PO ; Start 08/11/18 at 10:15 Carvedilol (Coreg) 12.5 mg BIDWMEALS PO ; Start 08/11/18 at 17:00 Ceftriaxone Sodium (Rocephin) 1 gm Q24H IVP ; Start 08/11/18 at 11:00 Metronidazole 100 ml @ 100 mls/hr Q12HR IV ; Start 08/11/18 at 11:00 Morphine Sulfate (Morphine Sulfate) 2 mg PRN Q4HRS PRN IV PAIN; Start 08/11/18 at 11:15 Active Scripts Active Reported Methylprednisolone 4 Mg Tablet 4 Mg PO DAILY Mupirocin Ointment (Mupirocin) 22 Gm Oint...g. 1 Matheus TP TID Spironolactone 25 Mg Tablet 1 Tab PO DAILY Coreg (Carvedilol) 12.5 Mg Tablet 12.5 Mg PO BIDWMEALS Atorvastatin Calcium 40 Mg Tablet 1 Tab PO DAILY Lisinopril 20 Mg Tablet 1 Tab PO DAILY Amlodipine Besylate 5 Mg Tablet 10 Mg PO DAILY Allergies Allergies: Coded Allergies: amoxicillin (Verified Allergy, Intermediate, 09/15/16) ciprofloxacin (Verified Allergy, Intermediate, Itching, 09/16/16) ciprofloxacin HCl (Verified Allergy, Intermediate, Itching, 09/16/16) clavulanic acid (Verified Allergy, Intermediate, 09/15/16) ROS General: No: Chills, Other (fevers) PSYCHOLOGICAL ROS: No: Anxiety, Depression Eyes: No Blurry vision, No Double vision HEENT: No: Heacaches, Sore Throat Hematological and Lymphatic: No: Bleeding Problems, Blood Clots Respiratory: No: Cough, Shortness of breath Cardiovascular: No Chest Pain, No Palpitations Gastrointestinal: Yes Other (see hpi) Genitourinary: No Dysuria, No Hematuria Musculoskeletal: No Joint Pain, No Muscle Pain Neurological: No Confusion, No Impaired Coord/balance Skin: No Pruritus, No Rash Physical Exam General: Alert, Oriented X3, Cooperative, No acute distress HEENT: PERRLA, Mucous membr. moist/pink Lungs: Clear to auscultation, Normal air movement Heart: Regular rate, Normal S1, Normal S2, No murmurs Abdomen: Soft, Other (diffusely TTP, ND) Extremities: No clubbing, No cyanosis Skin: No rashes, No breakdown Psych/Mental Status: Mental status NL, Mood NL MUSCULOSKELETAL: No joint tenderness, No deformity Vitals VITALS Vital Signs Date Time Temp Pulse Resp B/P (MAP) Pulse Ox O2 Delivery O2 Flow Rate FiO2 08/11/18 08:02 97.5 82 16 134/83 (100) 98 Room Air 97.5 Labs Labs Laboratory Tests Test 08/11/18 01:30 08/11/18 02:01 08/11/18 02:35 Urine Collection Type Unknown Urine Color Yellow Urine Clarity Clear Urine pH 6.0 Urine Specific [place] 1.015 Urine Protein Negative mg/dL (NEG-TRACE) Urine Glucose (UA) Negative mg/dL (NEG) Urine Ketones (Stick) Negative mg/dL (NEG) Urine Blood Small (NEG) Urine Nitrite Negative (NEG) Urine Bilirubin Negative (NEG) Urine Urobilinogen Dipstick 0.2 mg/dL (0.2 mg/dL) Urine Leukocyte Esterase Negative (NEG) Urine RBC 6-10 /HPF (0-2) Urine WBC Occ /HPF (0-4) Urine Squamous Epithelial Cells Few /LPF Urine Bacteria 0 /HPF (0-FEW) Urine Mucus Slight /LPF White Blood Count 14.5 x10^3/uL (4.0-11.0) Red Blood Count 4.11 x10^6/uL (3.50-5.40) Hemoglobin 12.1 g/dL (12.0-15.5) Hematocrit 36.7 % (36.0-47.0) Mean Corpuscular Volume 89 fL (79-100) Mean Corpuscular Hemoglobin 29 pg (25-35) Mean Corpuscular Hemoglobin Concent 33 g/dL (31-37) Red Cell Distribution Width 14.0 % (11.5-14.5) Platelet Count 329 x10^3/uL (140-400) Neutrophils (%) (Auto) 70 % (31-73) Lymphocytes (%) (Auto) 22 % (24-48) Monocytes (%) (Auto) 8 % (0-9) Eosinophils (%) (Auto) 0 % (0-3) Basophils (%) (Auto) 1 % (0-3) Neutrophils # (Auto) 10.1 x10^3uL (1.8-7.7) Lymphocytes # (Auto) 3.2 x10^3/uL (1.0-4.8) Monocytes # (Auto) 1.1 x10^3/uL (0.0-1.1) Eosinophils # (Auto) 0.0 x10^3/uL (0.0-0.7) Basophils # (Auto) 0.1 x10^3/uL (0.0-0.2) Sodium Level 141 mmol/L (136-145) Potassium Level 4.1 mmol/L (3.5-5.1) Chloride Level 104 mmol/L (98-107) Carbon Dioxide Level 26 mmol/L (21-32) Anion Gap 11 (6-14) Blood Urea Nitrogen 26 mg/dL (7-20) Creatinine 0.9 mg/dL (0.6-1.0) Estimated GFR (Cockcroft-Gault) 78.4 BUN/Creatinine Ratio 29 (6-20) Glucose Level 116 mg/dL (70-99) Calcium Level 9.1 mg/dL (8.5-10.1) Total Bilirubin 0.3 mg/dL (0.2-1.0) Aspartate Amino Transf (AST/SGOT) 14 U/L (15-37) Alanine Aminotransferase (ALT/SGPT) 22 U/L (14-59) Alkaline Phosphatase 50 U/L (46-116) Total Protein 6.6 g/dL (6.4-8.2) Albumin 3.6 g/dL (3.4-5.0) Albumin/Globulin Ratio 1.2 (1.0-1.7) Lipase 70 U/L (73-393) Laboratory Tests Test 08/11/18 01:30 08/11/18 02:01 08/11/18 02:35 Urine Collection Type Unknown Urine Color Yellow Urine Clarity Clear Urine pH 6.0 Urine Specific [place] 1.015 Urine Protein Negative mg/dL (NEG-TRACE) Urine Glucose (UA) Negative mg/dL (NEG) Urine Ketones (Stick) Negative mg/dL (NEG) Urine Blood Small (NEG) Urine Nitrite Negative (NEG) Urine Bilirubin Negative (NEG) Urine Urobilinogen Dipstick 0.2 mg/dL (0.2 mg/dL) Urine Leukocyte Esterase Negative (NEG) Urine RBC 6-10 /HPF (0-2) Urine WBC Occ /HPF (0-4) Urine Squamous Epithelial Cells Few /LPF Urine Bacteria 0 /HPF (0-FEW) Urine Mucus Slight /LPF White Blood Count 14.5 x10^3/uL (4.0-11.0) Red Blood Count 4.11 x10^6/uL (3.50-5.40) Hemoglobin 12.1 g/dL (12.0-15.5) Hematocrit 36.7 % (36.0-47.0) Mean Corpuscular Volume 89 fL (79-100) Mean Corpuscular Hemoglobin 29 pg (25-35) Mean Corpuscular Hemoglobin Concent 33 g/dL (31-37) Red Cell Distribution Width 14.0 % (11.5-14.5) Platelet Count 329 x10^3/uL (140-400) Neutrophils (%) (Auto) 70 % (31-73) Lymphocytes (%) (Auto) 22 % (24-48) Monocytes (%) (Auto) 8 % (0-9) Eosinophils (%) (Auto) 0 % (0-3) Basophils (%) (Auto) 1 % (0-3) Neutrophils # (Auto) 10.1 x10^3uL (1.8-7.7) Lymphocytes # (Auto) 3.2 x10^3/uL (1.0-4.8) Monocytes # (Auto) 1.1 x10^3/uL (0.0-1.1) Eosinophils # (Auto) 0.0 x10^3/uL (0.0-0.7) Basophils # (Auto) 0.1 x10^3/uL (0.0-0.2) Sodium Level 141 mmol/L (136-145) Potassium Level 4.1 mmol/L (3.5-5.1) Chloride Level 104 mmol/L (98-107) Carbon Dioxide Level 26 mmol/L (21-32) Anion Gap 11 (6-14) Blood Urea Nitrogen 26 mg/dL (7-20) Creatinine 0.9 mg/dL (0.6-1.0) Estimated GFR (Cockcroft-Gault) 78.4 BUN/Creatinine Ratio 29 (6-20) Glucose Level 116 mg/dL (70-99) Calcium Level 9.1 mg/dL (8.5-10.1) Total Bilirubin 0.3 mg/dL (0.2-1.0) Aspartate Amino Transf (AST/SGOT) 14 U/L (15-37) Alanine Aminotransferase (ALT/SGPT) 22 U/L (14-59) Alkaline Phosphatase 50 U/L (46-116) Total Protein 6.6 g/dL (6.4-8.2) Albumin 3.6 g/dL (3.4-5.0) Albumin/Globulin Ratio 1.2 (1.0-1.7) Lipase 70 U/L (73-393) Assessment/Plan Assessment/Plan abdominal pain Abnormal SB on imaging-- . Bowel wall thickening of the mid small bowel loop with inflammation in the mesentery surrounding this bowel loop. NPO, bowel rest will review with TONY Torres MD 08/11/18 8554: CONSULT Assessment/Plan Assessment/Plan Pt seen and examined. Agree with Ms. Fan's note Pt reports some of the pain is improved, but still persistent with associated nausea abd soft, diffuse TTP eugene LUQ cont bowel rest, if not improved, may need to consider lap vs open exploration. Thanks for consult! UGO FAN APRN August 11, 2018 11:26 TONY LAW MD August 11, 2018 17:38
--- NOTE | 2018-08-11 11:31 | HP ---
ADMIT DATE: 08/11/2018 HISTORY OF PRESENT ILLNESS: This 57-year-old -Malag[place] female started having severe abdominal pain in the upper abdomen since 08:00 a.m. yesterday. The patient has had some nausea and vomiting, but no diarrhea. She has had some constipation recently. She was treated with oral steroids for allergies and she was on the last dose of Medrol Dosepak. In the Emergency Room, the patient was evaluated. Her WBC count was 14.5, hemoglobin 12.1. Sodium 141, potassium 4.1, BUN 26, creatinine 0.9, glucose 116. AST 14, lipase 70, albumin is 3.6. WBC count 14.5, hemoglobin 12.1, polys 70. Urinalysis is negative except for 6-[address] scan of abdomen and pelvis showed mid small bowel loop thickening with inflammation to the mesentery surrounding this bowel loop, mildly dilated bowel at that location, but without severe obstruction, possible gallstones. Because of the acute abdominal pain, the patient was admitted for further evaluation and management. SYSTEMS REVIEW: The patient does admit to some nausea and vomiting, but denies any fever or chills, cold, cough, or congestion. She does not remember eating anything unusual. She denies any chest pains, palpitations, dyspnea or dizziness. As per staff, the patient has been asking for IV fentanyl 50 mcg every 20-30 minutes saying that it does not help her pain. It has been ordered every hour. Other systems reviewed and are negative. PAST MEDICAL HISTORY: The patient was last admitted here in 08/2016 for chest pain and at that time, cardiac workup was negative. She had a CTA chest and MRI of the brain that were negative. Cardiac enzymes were negative. She has a history of hypertension, ischemic colitis, hemorrhoids. PAST SURGICAL HISTORY: Includes appendectomy and hysterectomy and ligaments and tendon repair of the right arm. SOCIAL HISTORY: No history of alcoholism, drug abuse or smoking. ALLERGIES: The patient is allergic to AMOXICILLIN, CIPROFLOXACIN and CLAVULANIC ACID. MEDICATIONS: Reviewed and reconciled. FAMILY HISTORY: Positive for hypertension. PHYSICAL EXAMINATION: VITAL SIGNS: Temperature 98.6, pulse 84 per minute, respirations 20 per minute, blood pressure 154/76 mmHg. GENERAL: The patient is a middle-aged -Malagasy female, who is alert, oriented and not in acute distress. EYES: Pupils equal, reactive to light. Conjunctivae pink. Sclerae white. HENT: Unremarkable. NECK: Supple. JVP normal. No thyromegaly. Trachea midline. LUNGS: Clear. CARDIOVASCULAR SYSTEM: S1 and S2 regular. ABDOMEN: Soft, no guarding, no rigidity. He has mild tenderness in the upper abdomen just below the epigastric area. There is no guarding or rigidity. Bowel sounds present. EXTREMITIES: No edema, no cyanosis, no calf tenderness. CENTRAL NERVOUS SYSTEM: Alert and oriented. LABORATORY FINDINGS: As noted earlier. IMPRESSION: 1. Acute abdominal pain, clinically does not appear to be ischemic colitis, leukocytosis may be due to steroids. 2. Hypertension. 3. Leukocytosis. This may be partly due to steroids, partly due to her gastrointestinal issues. 4. Gastroesophageal reflux disease. PLAN: Keep her n.p.o., give IV fluids, IV normal saline, start IV Rocephin and metronidazole. Consult Dr. Blane Bae for GI evaluation and management. They have consulted Dr. Pleitez for surgical evaluation and management. I also consulted Dr. Cirstopher Tinsley for Infectious Disease evaluation and management. I will discontinue fentanyl as it has not been effective and change it to IV morphine 4 mg q. 4 hours p.r.n., monitor for worsening abdominal pain. I will restart amlodipine and carvedilol, but I will hold off on other hypertensive agents including spironolactone. For details, please refer to the orders. Recheck labs in a.m. DENZEL LOERA MD DR: QUIANA/richard JOB#: [id number] / [id number]
[2018-08-11] MEDS: cefTRIAXone IV Push 1 GM VIAL. IVP SCH (11:52)
[2018-08-11] MEDS: amLODIPine BESYLATE 10 MG TABLET PO SCH (11:53)
[2018-08-11] MEDS: FAMOTIDINE 20 MG/2 ML VIAL IVP SCH ×2 (12:13→20:29)
[2018-08-11 15:00] VITALS: BP 183/85
[2018-08-11] MEDS: CARVEDILOL 12.5 MG TABLET. PO SCH (15:33)
[2018-08-11] MEDS: MORPHINE SULFATE 2 MG/ML VIAL. IV PRN ×2 (16:22→20:31)
--- NOTE | 2018-08-11 16:38 | NUR ---
SW following pt for anticipated dc needs. Chart reviewed. Pt lives at home and no discharge recommendations noted at this time.
[2018-08-11 19:00] VITALS: BP 154/85
--- NOTE | 2018-08-11 23:34 | CONS ---
DATE OF CONSULTATION: 08/11/2018 REQUESTING PHYSICIAN: Dr. Hernandez. REASON FOR CONSULTATION: Abdominal pain and leukocytosis. HISTORY OF PRESENT ILLNESS: This is a 57-year-old -[place] female who came in with 1-day history of abdominal pain, some nausea, vomited here. The patient has been admitted with abdominal pain and leukocytosis. The patient denies any diarrhea, in fact she is constipated, she says. Denies any blood per rectum or black stool. Denies any headache, visual symptoms, chest pain, shortness of breath. Denies any fever or chills. The patient recently had a rash and the patient was given Medrol Dosepak about a week or 10 days ago. PAST MEDICAL HISTORY: Positive for hypertension, borderline diabetes, gastroesophageal reflux disease. She has had history of ischemic colitis almost 10 years ago. Appendicectomy, hysterectomy. SOCIAL HISTORY: Negative for smoking, alcohol, illicit drug use. ALLERGIES: LISTED ALLERGIC TO AMOXICILLIN; CLAVULANIC ACID, WHICH CAUSE STOMACH UPSET, CIPRO, SHE DID NOT REMEMBER. IN FACT, SHE DID NOT SAY SHE IS ALLERGIC TO CIPRO TO ME. REVIEW OF SYSTEMS: As per HPI. All other systems reviewed are negative. PHYSICAL EXAMINATION: GENERAL: Alert, oriented female, not in any distress. VITAL SIGNS: Stable, afebrile. HEENT: NAD. NECK: Supple, no JVP, no lymphadenopathy. LUNGS: Clear. HEART: S1, S2 regular. ABDOMEN: Slightly tender, no distention, no rebound or guarding, no organomegaly. EXTREMITIES: No edema or cyanosis. SKIN: Unremarkable. NEUROLOGIC: The patient is neurologically alert, awake and appropriate. No focal neurologic deficit. LABORATORY DATA: White count is 14.5. BUN and creatinine is 26 and 0.9. Urinalysis unremarkable. Her CT of the abdomen and pelvis showed bowel wall thickening of the mid small bowel loop with inflammation in the mesentery surrounding the bowel loop. IMPRESSION: 1. Abdominal pain, most likely from gastritis that is most likely from steroids as well as she does take some ibuprofen. 2. Leukocytosis, likely from steroids. 3. Ischemic bowel appears less likely. 4. Hypertension. 5. Obesity. 6. Borderline diabetes. RECOMMENDATIONS: We will use Rocephin, Flagyl, n.p.o., supportive care and hopefully, she should be able to discharge in a day or two. Discussion with Dr. Hernandez done. Thank you very much, Dr. Hernandez, for giving me the opportunity to participate in this patient's care. TOSIN OCHOA MD DR: TERRENCE/richard JOB#: [id number] / [id number]
[2018-08-12] MEDS: MORPHINE SULFATE 2 MG/ML VIAL. IV PRN ×6 (00:37→21:01)
[2018-08-12 04:25] LABS: PROTHROMBIN TIME PATIENT 15.4 SEC (11.7-14.0)
[2018-08-12 04:30] LABS: D-DIMER 2.25 ug/mlFEU (0.00-0.50)
[2018-08-12 04:33] LABS: ALBUMIN 2.9 g/dL (3.4-5.0); ALBUMIN/GLOBULIN RATIO 1.1 (1.0-1.7); CREATININE 0.8 mg/dL (0.6-1.0); GFR 89.8; POTASSIUM 3.7 mmol/L (3.5-5.1); TOTAL BILIRUBIN 0.5 mg/dL (0.2-1.0); TOTAL PROTEIN 5.5 g/dL (6.4-8.2)
[2018-08-12 05:33] LABS: BASO % 0 % (0-3); EOS % 1 % (0-3); HEMATOCRIT 33.4 % (36.0-47.0); HEMOGLOBIN 11.3 g/dL (12.0-15.5); LYMPH # 2.1 x10^3/uL (1.0-4.8); LYMPH % 26 % (24-48); MEAN CORPUSCULAR HEMOGLOBIN 30 pg (25-35); MEAN CORPUSCULAR HGB CONC 34 g/dL (31-37); MEAN CORPUSCULAR VOLUME 89 fL (79-100); MONO # 0.6 x10^3/uL (0.0-1.1); MONO % 7 % (0-9); NEUT # 5.5 x10^3uL (1.8-7.7); NEUT % 67 % (31-73); PLATELET COUNT 279 x10^3/uL (140-400); RED BLOOD COUNT 3.74 x10^6/uL (3.50-5.40); RED CELL DISTRIBUTION WIDTH 13.7 % (11.5-14.5); WHITE BLOOD COUNT 8.3 x10^3/uL (4.0-11.0)
--- NOTE | 2018-08-12 05:43 | PDOC ---
Infectious Disease Note Subjective Subjective pt is feeling better, no n/v/d/fever abd pain has improved ROS ROS no cp/urinary sy Vital Sign Vital Signs Vital Signs Date Time Temp Pulse Resp B/P (MAP) Pulse Ox O2 Delivery O2 Flow Rate FiO2 08/12/18 04:41 18 Room Air 08/11/18 19:00 99.0 94 154/85 (108) 97 99.0 Physical Exam PHYSICAL EXAM GENERAL: Alert, oriented female, not in any distress. VITAL SIGNS: Stable, afebrile. HEENT: NAD. NECK: Supple, no JVP, no lymphadenopathy. LUNGS: Clear. HEART: S1, S2 regular. ABDOMEN: Slightly tender, no distention, no rebound or guarding, no organomegaly. EXTREMITIES: No edema or cyanosis. SKIN: Unremarkable. NEUROLOGIC: The patient is neurologically alert, awake and appropriate. No focal neurologic deficit. Labs Lab Laboratory Tests Test 08/11/18 10:50 08/12/18 04:00 Lactic Acid Level 0.6 mmol/L (0.4-2.0) Prothrombin Time 15.4 SEC (11.7-14.0) Prothromb Time International Ratio 1.3 (0.8-1.1) D-Dimer (Olamide) 2.25 ug/mlFEU (0.00-0.50) Sodium Level 142 mmol/L (136-145) Potassium Level 3.7 mmol/L (3.5-5.1) Chloride Level 106 mmol/L (98-107) Carbon Dioxide Level 27 mmol/L (21-32) Anion Gap 9 (6-14) Blood Urea Nitrogen 16 mg/dL (7-20) Creatinine 0.8 mg/dL (0.6-1.0) Estimated GFR (Cockcroft-Gault) 89.8 BUN/Creatinine Ratio 20 (6-20) Glucose Level 94 mg/dL (70-99) Calcium Level 8.0 mg/dL (8.5-10.1) Total Bilirubin 0.5 mg/dL (0.2-1.0) Aspartate Amino Transf (AST/SGOT) 10 U/L (15-37) Alanine Aminotransferase (ALT/SGPT) 17 U/L (14-59) Alkaline Phosphatase 43 U/L (46-116) Total Protein 5.5 g/dL (6.4-8.2) Albumin 2.9 g/dL (3.4-5.0) Albumin/Globulin Ratio 1.1 (1.0-1.7) Objective Assessment Gastritis from steroids and ibuprofen Abdominal pain, from # 1 , doubt ischemic colitis Recent rash , received medrol dose pack HTN h/o ischemic colitis Plan Plan of Care rocephine and flagyl supportive care PPI liquid diet TOSIN OCHOA MD August 12, 2018 05:43
[2018-08-12 07:00] VITALS: BP 133/72
[2018-08-12] MEDS: FAMOTIDINE 20 MG/2 ML VIAL IVP SCH ×2 (09:12→21:01)
[2018-08-12] MEDS: amLODIPine BESYLATE 10 MG TABLET PO SCH (09:12)
[2018-08-12] MEDS: CARVEDILOL 12.5 MG TABLET. PO SCH ×2 (09:13→17:00)
[2018-08-12 11:00] VITALS: BP 115/55
[2018-08-12] MEDS: cefTRIAXone IV Push 1 GM VIAL. IVP SCH (11:10)
--- NOTE | 2018-08-12 11:12 | PDOC ---
IM PROGRESS NOTES- Subjective Subjective Patient states the morphine helps her for about 3-1/2-4 hours with abdominal pain and then the abdominal pain comes back. She denies any nausea or vomiting. Objective Vitals Vital Signs Date Time Temp Pulse Resp B/P (MAP) Pulse Ox O2 Delivery O2 Flow Rate FiO2 08/12/18 09:13 79 133/72 08/12/18 08:58 18 Room Air 08/12/18 07:00 98.7 96 98.7 Input & Output Intake and Output 08/12/18 07:00 # Voids 7 Physical Exam Physical Exam General appearance - alert,well appearing, and in no distress and oriented to person, place, and time Mental Status - alert, oriented to person, place, and time, affect appropriate to mood Head - normal Chest - clear to auscultation, no wheezes, rales or rhonchi, symmetric air entry Heart - S1 and S2 normal Abdomen - soft, nontender, nondistended, no masses or organomegaly Neurological - alert and oriented Musculoskeletal - no muscular tenderness noted Extremities - no pedal edema Skin - warm and dry Labs Laboratory Tests Test 08/11/18 01:30 08/11/18 02:01 08/11/18 02:35 08/11/18 10:50 Urine Collection Type Unknown Urine Color Yellow Urine Clarity Clear Urine pH 6.0 Urine Specific [place] 1.015 Urine Protein Negative mg/dL (NEG-TRACE) Urine Glucose (UA) Negative mg/dL (NEG) Urine Ketones (Stick) Negative mg/dL (NEG) Urine Blood Small (NEG) Urine Nitrite Negative (NEG) Urine Bilirubin Negative (NEG) Urine Urobilinogen Dipstick 0.2 mg/dL (0.2 mg/dL) Urine Leukocyte Esterase Negative (NEG) Urine RBC 6-10 /HPF (0-2) Urine WBC Occ /HPF (0-4) Urine Squamous Epithelial Cells Few /LPF Urine Bacteria 0 /HPF (0-FEW) Urine Mucus Slight /LPF White Blood Count 14.5 x10^3/uL (4.0-11.0) Red Blood Count 4.11 x10^6/uL (3.50-5.40) Hemoglobin 12.1 g/dL (12.0-15.5) Hematocrit 36.7 % (36.0-47.0) Mean Corpuscular Volume 89 fL (79-100) Mean Corpuscular Hemoglobin 29 pg (25-35) Mean Corpuscular Hemoglobin Concent 33 g/dL (31-37) Red Cell Distribution Width 14.0 % (11.5-14.5) Platelet Count 329 x10^3/uL (140-400) Neutrophils (%) (Auto) 70 % (31-73) Lymphocytes (%) (Auto) 22 % (24-48) Monocytes (%) (Auto) 8 % (0-9) Eosinophils (%) (Auto) 0 % (0-3) Basophils (%) (Auto) 1 % (0-3) Neutrophils # (Auto) 10.1 x10^3uL (1.8-7.7) Lymphocytes # (Auto) 3.2 x10^3/uL (1.0-4.8) Monocytes # (Auto) 1.1 x10^3/uL (0.0-1.1) Eosinophils # (Auto) 0.0 x10^3/uL (0.0-0.7) Basophils # (Auto) 0.1 x10^3/uL (0.0-0.2) Sodium Level 141 mmol/L (136-145) Potassium Level 4.1 mmol/L (3.5-5.1) Chloride Level 104 mmol/L (98-107) Carbon Dioxide Level 26 mmol/L (21-32) Anion Gap 11 (6-14) Blood Urea Nitrogen 26 mg/dL (7-20) Creatinine 0.9 mg/dL (0.6-1.0) Estimated GFR (Cockcroft-Gault) 78.4 BUN/Creatinine Ratio 29 (6-20) Glucose Level 116 mg/dL (70-99) Calcium Level 9.1 mg/dL (8.5-10.1) Total Bilirubin 0.3 mg/dL (0.2-1.0) Aspartate Amino Transf (AST/SGOT) 14 U/L (15-37) Alanine Aminotransferase (ALT/SGPT) 22 U/L (14-59) Alkaline Phosphatase 50 U/L (46-116) Total Protein 6.6 g/dL (6.4-8.2) Albumin 3.6 g/dL (3.4-5.0) Albumin/Globulin Ratio 1.2 (1.0-1.7) Lipase 70 U/L (73-393) Lactic Acid Level 0.6 mmol/L (0.4-2.0) Test 08/12/18 04:00 08/12/18 05:00 Prothrombin Time 15.4 SEC (11.7-14.0) Prothromb Time International Ratio 1.3 (0.8-1.1) D-Dimer (Olamide) 2.25 ug/mlFEU (0.00-0.50) Sodium Level 142 mmol/L (136-145) Potassium Level 3.7 mmol/L (3.5-5.1) Chloride Level 106 mmol/L (98-107) Carbon Dioxide Level 27 mmol/L (21-32) Anion Gap 9 (6-14) Blood Urea Nitrogen 16 mg/dL (7-20) Creatinine 0.8 mg/dL (0.6-1.0) Estimated GFR (Cockcroft-Gault) 89.8 BUN/Creatinine Ratio 20 (6-20) Glucose Level 94 mg/dL (70-99) Calcium Level 8.0 mg/dL (8.5-10.1) Total Bilirubin 0.5 mg/dL (0.2-1.0) Aspartate Amino Transf (AST/SGOT) 10 U/L (15-37) Alanine Aminotransferase (ALT/SGPT) 17 U/L (14-59) Alkaline Phosphatase 43 U/L (46-116) Total Protein 5.5 g/dL (6.4-8.2) Albumin 2.9 g/dL (3.4-5.0) Albumin/Globulin Ratio 1.1 (1.0-1.7) White Blood Count 8.3 x10^3/uL (4.0-11.0) Red Blood Count 3.74 x10^6/uL (3.50-5.40) Hemoglobin 11.3 g/dL (12.0-15.5) Hematocrit 33.4 % (36.0-47.0) Mean Corpuscular Volume 89 fL (79-100) Mean Corpuscular Hemoglobin 30 pg (25-35) Mean Corpuscular Hemoglobin Concent 34 g/dL (31-37) Red Cell Distribution Width 13.7 % (11.5-14.5) Platelet Count 279 x10^3/uL (140-400) Neutrophils (%) (Auto) 67 % (31-73) Lymphocytes (%) (Auto) 26 % (24-48) Monocytes (%) (Auto) 7 % (0-9) Eosinophils (%) (Auto) 1 % (0-3) Basophils (%) (Auto) 0 % (0-3) Neutrophils # (Auto) 5.5 x10^3uL (1.8-7.7) Lymphocytes # (Auto) 2.1 x10^3/uL (1.0-4.8) Monocytes # (Auto) 0.6 x10^3/uL (0.0-1.1) Eosinophils # (Auto) 0.0 x10^3/uL (0.0-0.7) Basophils # (Auto) 0.0 x10^3/uL (0.0-0.2) Laboratory Tests Test 08/12/18 04:00 08/12/18 05:00 Prothrombin Time 15.4 SEC (11.7-14.0) Prothromb Time International Ratio 1.3 (0.8-1.1) D-Dimer (Olamide) 2.25 ug/mlFEU (0.00-0.50) Sodium Level 142 mmol/L (136-145) Potassium Level 3.7 mmol/L (3.5-5.1) Chloride Level 106 mmol/L (98-107) Carbon Dioxide Level 27 mmol/L (21-32) Anion Gap 9 (6-14) Blood Urea Nitrogen 16 mg/dL (7-20) Creatinine 0.8 mg/dL (0.6-1.0) Estimated GFR (Cockcroft-Gault) 89.8 BUN/Creatinine Ratio 20 (6-20) Glucose Level 94 mg/dL (70-99) Calcium Level 8.0 mg/dL (8.5-10.1) Total Bilirubin 0.5 mg/dL (0.2-1.0) Aspartate Amino Transf (AST/SGOT) 10 U/L (15-37) Alanine Aminotransferase (ALT/SGPT) 17 U/L (14-59) Alkaline Phosphatase 43 U/L (46-116) Total Protein 5.5 g/dL (6.4-8.2) Albumin 2.9 g/dL (3.4-5.0) Albumin/Globulin Ratio 1.1 (1.0-1.7) White Blood Count 8.3 x10^3/uL (4.0-11.0) Red Blood Count 3.74 x10^6/uL (3.50-5.40) Hemoglobin 11.3 g/dL (12.0-15.5) Hematocrit 33.4 % (36.0-47.0) Mean Corpuscular Volume 89 fL (79-100) Mean Corpuscular Hemoglobin 30 pg (25-35) Mean Corpuscular Hemoglobin Concent 34 g/dL (31-37) Red Cell Distribution Width 13.7 % (11.5-14.5) Platelet Count 279 x10^3/uL (140-400) Neutrophils (%) (Auto) 67 % (31-73) Lymphocytes (%) (Auto) 26 % (24-48) Monocytes (%) (Auto) 7 % (0-9) Eosinophils (%) (Auto) 1 % (0-3) Basophils (%) (Auto) 0 % (0-3) Neutrophils # (Auto) 5.5 x10^3uL (1.8-7.7) Lymphocytes # (Auto) 2.1 x10^3/uL (1.0-4.8) Monocytes # (Auto) 0.6 x10^3/uL (0.0-1.1) Eosinophils # (Auto) 0.0 x10^3/uL (0.0-0.7) Basophils # (Auto) 0.0 x10^3/uL (0.0-0.2) Meds Current Medications Carvedilol (Coreg) 12.5 mg BIDWMEALS PO Last administered on 08/12/18at 09:13; Start 08/11/18 at 17:00 Famotidine (Pepcid Vial) 20 mg BID IVP Last administered on 08/12/18at 09:12; Start 08/11/18 at 12:00 Morphine Sulfate (Morphine Sulfate) 2 mg PRN Q4HRS PRN IV PAIN Last administered on 08/11/18at 12:14; Start 08/11/18 at 11:15; Stop 08/11/18 at 15:29; Status DC Morphine Sulfate (Morphine Sulfate) 4 mg PRN Q4HRS PRN IV PAIN Last administered on 08/12/18at 08:28; Start 08/11/18 at 15:30 Assessment Assessment 1. Acute abdominal pain, clinically does not appear to be ischemic colitis, leukocytosis may be due to steroids. 2. Hypertension. 3. Leukocytosis. This may be partly due to steroids, partly due to her gastrointestinal issues. 4. Gastroesophageal reflux disease. PLAN: Keep her n.p.o., give IV fluids, IV normal saline, start IV Rocephin and metronidazole. Consult Dr. Blane Bae for GI evaluation and management. They have consulted Dr. Pleitez for surgical evaluation and management. I also consulted Dr. Cristopher Tinsley for Infectious Disease evaluation and management. I will discontinue fentanyl as it has not been effective and change it to IV morphine 4 mg q. 4 hours p.r.n., monitor for worsening abdominal pain. I will restart amlodipine and carvedilol, but I will hold off on other hypertensive agents including spironolactone. For details, please refer to the orders. Recheck labs in a.m. Diet advanced to clear liquids. Leukocytosis is improving. Discussed with surgery. Patient will have a CTA. Continue IV fluids. Plan Plan For more details regarding further plans, please refer to the orders. DENZEL LOERA MD August 12, 2018 11:12
--- NOTE | 2018-08-12 11:25 | PDOC ---
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 ENGINEER 08/12/18 1125: SURGICAL PROGRESS NOTE Subjective improvement, however still requiring IV pain meds no emesis Vital Signs Vital Signs Date Time Temp Pulse Resp B/P (MAP) Pulse Ox O2 Delivery O2 Flow Rate FiO2 08/12/18 09:13 79 133/72 08/12/18 08:58 18 Room Air 08/12/18 07:00 98.7 96 98.7 I&O Intake and Output 08/12/18 07:00 # Voids 7 General: Alert, Oriented X3, Cooperative, No acute distress Abdomen: Soft, Other (tender mid abdomen, mild, on guarding ) Labs Laboratory Tests Test 08/11/18 01:30 08/11/18 02:01 08/11/18 02:35 08/11/18 10:50 Urine Collection Type Unknown Urine Color Yellow Urine Clarity Clear Urine pH 6.0 Urine Specific [place] 1.015 Urine Protein Negative mg/dL (NEG-TRACE) Urine Glucose (UA) Negative mg/dL (NEG) Urine Ketones (Stick) Negative mg/dL (NEG) Urine Blood Small (NEG) Urine Nitrite Negative (NEG) Urine Bilirubin Negative (NEG) Urine Urobilinogen Dipstick 0.2 mg/dL (0.2 mg/dL) Urine Leukocyte Esterase Negative (NEG) Urine RBC 6-10 /HPF (0-2) Urine WBC Occ /HPF (0-4) Urine Squamous Epithelial Cells Few /LPF Urine Bacteria 0 /HPF (0-FEW) Urine Mucus Slight /LPF White Blood Count 14.5 x10^3/uL (4.0-11.0) Red Blood Count 4.11 x10^6/uL (3.50-5.40) Hemoglobin 12.1 g/dL (12.0-15.5) Hematocrit 36.7 % (36.0-47.0) Mean Corpuscular Volume 89 fL (79-100) Mean Corpuscular Hemoglobin 29 pg (25-35) Mean Corpuscular Hemoglobin Concent 33 g/dL (31-37) Red Cell Distribution Width 14.0 % (11.5-14.5) Platelet Count 329 x10^3/uL (140-400) Neutrophils (%) (Auto) 70 % (31-73) Lymphocytes (%) (Auto) 22 % (24-48) Monocytes (%) (Auto) 8 % (0-9) Eosinophils (%) (Auto) 0 % (0-3) Basophils (%) (Auto) 1 % (0-3) Neutrophils # (Auto) 10.1 x10^3uL (1.8-7.7) Lymphocytes # (Auto) 3.2 x10^3/uL (1.0-4.8) Monocytes # (Auto) 1.1 x10^3/uL (0.0-1.1) Eosinophils # (Auto) 0.0 x10^3/uL (0.0-0.7) Basophils # (Auto) 0.1 x10^3/uL (0.0-0.2) Sodium Level 141 mmol/L (136-145) Potassium Level 4.1 mmol/L (3.5-5.1) Chloride Level 104 mmol/L (98-107) Carbon Dioxide Level 26 mmol/L (21-32) Anion Gap 11 (6-14) Blood Urea Nitrogen 26 mg/dL (7-20) Creatinine 0.9 mg/dL (0.6-1.0) Estimated GFR (Cockcroft-Gault) 78.4 BUN/Creatinine Ratio 29 (6-20) Glucose Level 116 mg/dL (70-99) Calcium Level 9.1 mg/dL (8.5-10.1) Total Bilirubin 0.3 mg/dL (0.2-1.0) Aspartate Amino Transf (AST/SGOT) 14 U/L (15-37) Alanine Aminotransferase (ALT/SGPT) 22 U/L (14-59) Alkaline Phosphatase 50 U/L (46-116) Total Protein 6.6 g/dL (6.4-8.2) Albumin 3.6 g/dL (3.4-5.0) Albumin/Globulin Ratio 1.2 (1.0-1.7) Lipase 70 U/L (73-393) Lactic Acid Level 0.6 mmol/L (0.4-2.0) Test 08/12/18 04:00 08/12/18 05:00 Prothrombin Time 15.4 SEC (11.7-14.0) Prothromb Time International Ratio 1.3 (0.8-1.1) D-Dimer (Olamide) 2.25 ug/mlFEU (0.00-0.50) Sodium Level 142 mmol/L (136-145) Potassium Level 3.7 mmol/L (3.5-5.1) Chloride Level 106 mmol/L (98-107) Carbon Dioxide Level 27 mmol/L (21-32) Anion Gap 9 (6-14) Blood Urea Nitrogen 16 mg/dL (7-20) Creatinine 0.8 mg/dL (0.6-1.0) Estimated GFR (Cockcroft-Gault) 89.8 BUN/Creatinine Ratio 20 (6-20) Glucose Level 94 mg/dL (70-99) Calcium Level 8.0 mg/dL (8.5-10.1) Total Bilirubin 0.5 mg/dL (0.2-1.0) Aspartate Amino Transf (AST/SGOT) 10 U/L (15-37) Alanine Aminotransferase (ALT/SGPT) 17 U/L (14-59) Alkaline Phosphatase 43 U/L (46-116) Total Protein 5.5 g/dL (6.4-8.2) Albumin 2.9 g/dL (3.4-5.0) Albumin/Globulin Ratio 1.1 (1.0-1.7) White Blood Count 8.3 x10^3/uL (4.0-11.0) Red Blood Count 3.74 x10^6/uL (3.50-5.40) Hemoglobin 11.3 g/dL (12.0-15.5) Hematocrit 33.4 % (36.0-47.0) Mean Corpuscular Volume 89 fL (79-100) Mean Corpuscular Hemoglobin 30 pg (25-35) Mean Corpuscular Hemoglobin Concent 34 g/dL (31-37) Red Cell Distribution Width 13.7 % (11.5-14.5) Platelet Count 279 x10^3/uL (140-400) Neutrophils (%) (Auto) 67 % (31-73) Lymphocytes (%) (Auto) 26 % (24-48) Monocytes (%) (Auto) 7 % (0-9) Eosinophils (%) (Auto) 1 % (0-3) Basophils (%) (Auto) 0 % (0-3) Neutrophils # (Auto) 5.5 x10^3uL (1.8-7.7) Lymphocytes # (Auto) 2.1 x10^3/uL (1.0-4.8) Monocytes # (Auto) 0.6 x10^3/uL (0.0-1.1) Eosinophils # (Auto) 0.0 x10^3/uL (0.0-0.7) Basophils # (Auto) 0.0 x10^3/uL (0.0-0.2) Laboratory Tests Test 08/12/18 04:00 08/12/18 05:00 Prothrombin Time 15.4 SEC (11.7-14.0) Prothromb Time International Ratio 1.3 (0.8-1.1) D-Dimer (Olamide) 2.25 ug/mlFEU (0.00-0.50) Sodium Level 142 mmol/L (136-145) Potassium Level 3.7 mmol/L (3.5-5.1) Chloride Level 106 mmol/L (98-107) Carbon Dioxide Level 27 mmol/L (21-32) Anion Gap 9 (6-14) Blood Urea Nitrogen 16 mg/dL (7-20) Creatinine 0.8 mg/dL (0.6-1.0) Estimated GFR (Cockcroft-Gault) 89.8 BUN/Creatinine Ratio 20 (6-20) Glucose Level 94 mg/dL (70-99) Calcium Level 8.0 mg/dL (8.5-10.1) Total Bilirubin 0.5 mg/dL (0.2-1.0) Aspartate Amino Transf (AST/SGOT) 10 U/L (15-37) Alanine Aminotransferase (ALT/SGPT) 17 U/L (14-59) Alkaline Phosphatase 43 U/L (46-116) Total Protein 5.5 g/dL (6.4-8.2) Albumin 2.9 g/dL (3.4-5.0) Albumin/Globulin Ratio 1.1 (1.0-1.7) White Blood Count 8.3 x10^3/uL (4.0-11.0) Red Blood Count 3.74 x10^6/uL (3.50-5.40) Hemoglobin 11.3 g/dL (12.0-15.5) Hematocrit 33.4 % (36.0-47.0) Mean Corpuscular Volume 89 fL (79-100) Mean Corpuscular Hemoglobin 30 pg (25-35) Mean Corpuscular Hemoglobin Concent 34 g/dL (31-37) Red Cell Distribution Width 13.7 % (11.5-14.5) Platelet Count 279 x10^3/uL (140-400) Neutrophils (%) (Auto) 67 % (31-73) Lymphocytes (%) (Auto) 26 % (24-48) Monocytes (%) (Auto) 7 % (0-9) Eosinophils (%) (Auto) 1 % (0-3) Basophils (%) (Auto) 0 % (0-3) Neutrophils # (Auto) 5.5 x10^3uL (1.8-7.7) Lymphocytes # (Auto) 2.1 x10^3/uL (1.0-4.8) Monocytes # (Auto) 0.6 x10^3/uL (0.0-1.1) Eosinophils # (Auto) 0.0 x10^3/uL (0.0-0.7) Basophils # (Auto) 0.0 x10^3/uL (0.0-0.2) Problem List Problems Medical Problems: (1) Enteritis Status: Acute Assessment/Plan s/w Dr Pleitez, check CTA TONY PLEITEZ MD 08/12/181941: SURGICAL PROGRESS NOTE Assessment/Plan Pt seen and examined. Agree with Claudy Freeman's note Pt notes some improvement, pain meds last longer, no nausea, passing flatus abd soft, ND, mild less TTP did have pain with clears earlier d/w pt and pt's supportive family No evidence of bowel compromise currently However, if not improved next 48 hours or so, consider laparoscopic exploration. Suspect pt with hostile abd, however. 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 ENGINE[employer] August 12, 2018 11:25 TONY PLEITEZ MD August 12, 2018 19:42
[2018-08-12] MEDS ORDERED: IOHEXOL 350 MG/ML 100 ML VIAL. IV ONE (11:45)
[2018-08-12] MEDS ORDERED: CONTRAST GIVEN. MC PRN (11:45)
[2018-08-12] MEDS: LACTOBACILLUS RHAMNOSUS GG 1 CAPSULE. PO SCH ×2 (12:00→21:01)
--- NOTE | 2018-08-12 12:52 | PDOC ---
Subjective: Subjective: [place] better this morning, tried clears, now pain has recurred. Just back from CT. Passed gas earlier, no stool. Objective: Vital Signs: Vital Signs Date Time Temp Pulse Resp B/P (MAP) Pulse Ox O2 Delivery O2 Flow Rate FiO2 08/12/18 12:24 20 08/12/18 11:00 99.2 81 115/55 (75) 94 Room Air 99.2 Labs: Laboratory Tests Test 08/12/18 04:00 08/12/18 05:00 Prothrombin Time 15.4 SEC Prothromb Time International Ratio 1.3 D-Dimer (Olamide) 2.25 ug/mlFEU Sodium Level 142 mmol/L Potassium Level 3.7 mmol/L Chloride Level 106 mmol/L Carbon Dioxide Level 27 mmol/L Anion Gap 9 Blood Urea Nitrogen 16 mg/dL Creatinine 0.8 mg/dL Estimated GFR (Cockcroft-Gault) 89.8 BUN/Creatinine Ratio 20 Glucose Level 94 mg/dL Calcium Level 8.0 mg/dL Total Bilirubin 0.5 mg/dL Aspartate Amino Transf (AST/SGOT) 10 U/L Alanine Aminotransferase (ALT/SGPT) 17 U/L Alkaline Phosphatase 43 U/L Total Protein 5.5 g/dL Albumin 2.9 g/dL Albumin/Globulin Ratio 1.1 White Blood Count 8.3 x10^3/uL Red Blood Count 3.74 x10^6/uL Hemoglobin 11.3 g/dL Hematocrit 33.4 % Mean Corpuscular Volume 89 fL Mean Corpuscular Hemoglobin 30 pg Mean Corpuscular Hemoglobin Concent 34 g/dL Red Cell Distribution Width 13.7 % Platelet Count 279 x10^3/uL Neutrophils (%) (Auto) 67 % Lymphocytes (%) (Auto) 26 % Monocytes (%) (Auto) 7 % Eosinophils (%) (Auto) 1 % Basophils (%) (Auto) 0 % Neutrophils # (Auto) 5.5 x10^3uL Lymphocytes # (Auto) 2.1 x10^3/uL Monocytes # (Auto) 0.6 x10^3/uL Eosinophils # (Auto) 0.0 x10^3/uL Basophils # (Auto) 0.0 x10^3/uL Imaging: A/P CTA 08/12 pending PE: GEN: NAD LUNGS: CTAB HEART: RRR ABD: quiet - a few bowel sounds to right, tender, pt holding her abdomen NEURO/PSYCH: A & O 3, tearful A/P: Abd pain - was better, now worse Abnormal SB on CT -- Await CTA. NEGIN OATES August 12, 2018 12:52
--- NOTE | 2018-08-12 13:42 | RAD ---
CTA of the abdomen and pelvis with contrast, 08/12/2018: History: Abdominal pain Multidetector CT imaging was performed following an IV bolus injection of iodinated contrast material. Multiplanar reconstructions were produced including sagittal and coronal MIP images, as well as 3-D volume rendered reconstructions of the major arteries. There is moderate calcific plaquing of the abdominal aorta. This involves the origins of the celiac and superior mesenteric arteries. There appears to be approximately 50% diameter narrowing of the celiac artery origin and 30% diameter narrowing of the superior mesenteric arterial origin. There are single bilateral renal arteries. There is mild calcific plaquing involving the proximal renal arteries with only minimal luminal narrowing. A patent inferior mesenteric artery is present. There is no evidence of aortic aneurysm or high-grade aortoiliac stenosis. The heart is generally enlarged. There are granulomatous calcifications in the lung bases. Multiple hepatic cysts are again noted. A tiny radiopacity along the dependent wall of gallbladder may be a gallstone. The pancreas is unremarkable. The spleen shows no abnormality. A single cyst is noted in the left kidney. There appears to be mural thickening involving several small bowel loops in the central abdomen with streaky increased density in the mesentery as noted on yesterday's study. The mesenteric inflammatory changes have progressed slightly. There is a small amount of free fluid in the pelvis which has increased since yesterday's exam. IMPRESSION: 1. Moderate aortoiliac calcific plaquing without evidence of aneurysm or high-grade stenosis. 2. 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 3. Ongoing mural thickening involving small bowel loops in the central abdomen with increasing associated mesenteric edema and free fluid in the pelvis. PQRS Compliance Statement: One or more of the following individualized dose reduction techniques were utilized for this examination: 1. Automated exposure control 2. Adjustment of the mA and/or kV according to patient size 3. Use of iterative reconstruction technique
[2018-08-12 15:00] VITALS: BP 114/60
[2018-08-12] MEDS: IV NORMAL SALINE 1000ML BAG 1,000 ML IV SCH (18:49)
--- NOTE | 2018-08-12 19:03 | NUR ---
1700 coreg not given as patient c/o increased pain with intake of CLD and BP 114/60.
[2018-08-12 19:51] VITALS: BP 119/60
[2018-08-12 23:46] VITALS: BP 136/79
[2018-08-13 03:50] VITALS: BP 141/66
[2018-08-13] MEDS: MORPHINE SULFATE 2 MG/ML VIAL. IV PRN ×4 (03:58→19:14)
[2018-08-13] MEDS: IV NORMAL SALINE 1000ML BAG 1,000 ML IV SCH ×4 (03:58→23:03)
[2018-08-13 05:52] LABS: BASO % 0 % (0-3); EOS # 0.2 x10^3/uL (0.0-0.7); EOS % 2 % (0-3); HEMATOCRIT 31.9 % (36.0-47.0); HEMOGLOBIN 10.6 g/dL (12.0-15.5); LYMPH # 1.9 x10^3/uL (1.0-4.8); LYMPH % 25 % (24-48); MEAN CORPUSCULAR HEMOGLOBIN 30 pg (25-35); MEAN CORPUSCULAR HGB CONC 33 g/dL (31-37); MEAN CORPUSCULAR VOLUME 90 fL (79-100); MONO # 0.6 x10^3/uL (0.0-1.1); MONO % 8 % (0-9); NEUT % 65 % (31-73); PLATELET COUNT 257 x10^3/uL (140-400); RED BLOOD COUNT 3.56 x10^6/uL (3.50-5.40); WHITE BLOOD COUNT 7.7 x10^3/uL (4.0-11.0)
[2018-08-13 06:11] LABS: CALCIUM 8.1 mg/dL (8.5-10.1); CREATININE 0.7 mg/dL (0.6-1.0); GFR 104.7; POTASSIUM 3.5 mmol/L (3.5-5.1)
[2018-08-13 07:00] VITALS: BP 117/60
[2018-08-13] MEDS: FAMOTIDINE 20 MG/2 ML VIAL IVP SCH ×2 (08:48→20:48)
[2018-08-13] MEDS: LACTOBACILLUS RHAMNOSUS GG 1 CAPSULE. PO SCH ×2 (08:48→20:48)
[2018-08-13] MEDS: amLODIPine BESYLATE 10 MG TABLET PO SCH (08:51)
[2018-08-13] MEDS: CARVEDILOL 12.5 MG TABLET. PO SCH ×2 (08:52→16:25)
--- NOTE | 2018-08-13 08:53 | PDOC ---
UGO FREEMAN WELFARE ADVISER 08/13/18 0853: SURGICAL PROGRESS NOTE Subjective taking some clears still having pain, however some improvement Vital Signs Vital Signs Date Time Temp Pulse Resp B/P (MAP) Pulse Ox O2 Delivery O2 Flow Rate FiO2 08/13/18 08:00 Room Air 08/13/18 03:50 98.3 79 18 141/66 (91) 97 98.3 I&O Intake and Output 08/13/18 07:00 Output Total 300 ml Balance -300 ml Output Urine Total 300 ml # Voids 3 General: Alert, Oriented X3, Cooperative, No acute distress Abdomen: Soft, Other (mild ttp mid abdomen) Labs Laboratory Tests Test 08/11/18 10:50 08/12/18 04:00 08/12/18 05:00 08/13/18 05:10 Lactic Acid Level 0.6 mmol/L (0.4-2.0) Prothrombin Time 15.4 SEC (11.7-14.0) Prothromb Time International Ratio 1.3 (0.8-1.1) D-Dimer (Olamide) 2.25 ug/mlFEU (0.00-0.50) Sodium Level 142 mmol/L (136-145) 142 mmol/L (136-145) Potassium Level 3.7 mmol/L (3.5-5.1) 3.5 mmol/L (3.5-5.1) Chloride Level 106 mmol/L (98-107) 107 mmol/L (98-107) Carbon Dioxide Level 27 mmol/L (21-32) 25 mmol/L (21-32) Anion Gap 9 (6-14) 10 (6-14) Blood Urea Nitrogen 16 mg/dL (7-20) 12 mg/dL (7-20) Creatinine 0.8 mg/dL (0.6-1.0) 0.7 mg/dL (0.6-1.0) Estimated GFR (Cockcroft-Gault) 89.8 104.7 BUN/Creatinine Ratio 20 (6-20) Glucose Level 94 mg/dL (70-99) 79 mg/dL (70-99) Calcium Level 8.0 mg/dL (8.5-10.1) 8.1 mg/dL (8.5-10.1) Total Bilirubin 0.5 mg/dL (0.2-1.0) Aspartate Amino Transf (AST/SGOT) 10 U/L (15-37) Alanine Aminotransferase (ALT/SGPT) 17 U/L (14-59) Alkaline Phosphatase 43 U/L (46-116) Total Protein 5.5 g/dL (6.4-8.2) Albumin 2.9 g/dL (3.4-5.0) Albumin/Globulin Ratio 1.1 (1.0-1.7) White Blood Count 8.3 x10^3/uL (4.0-11.0) 7.7 x10^3/uL (4.0-11.0) Red Blood Count 3.74 x10^6/uL (3.50-5.40) 3.56 x10^6/uL (3.50-5.40) Hemoglobin 11.3 g/dL (12.0-15.5) 10.6 g/dL (12.0-15.5) Hematocrit 33.4 % (36.0-47.0) 31.9 % (36.0-47.0) Mean Corpuscular Volume 89 fL (79-100) 90 fL (79-100) Mean Corpuscular Hemoglobin 30 pg (25-35) 30 pg (25-35) Mean Corpuscular Hemoglobin Concent 34 g/dL (31-37) 33 g/dL (31-37) Red Cell Distribution Width 13.7 % (11.5-14.5) 14.0 % (11.5-14.5) Platelet Count 279 x10^3/uL (140-400) 257 x10^3/uL (140-400) Neutrophils (%) (Auto) 67 % (31-73) 65 % (31-73) Lymphocytes (%) (Auto) 26 % (24-48) 25 % (24-48) Monocytes (%) (Auto) 7 % (0-9) 8 % (0-9) Eosinophils (%) (Auto) 1 % (0-3) 2 % (0-3) Basophils (%) (Auto) 0 % (0-3) 0 % (0-3) Neutrophils # (Auto) 5.5 x10^3uL (1.8-7.7) 5.0 x10^3uL (1.8-7.7) Lymphocytes # (Auto) 2.1 x10^3/uL (1.0-4.8) 1.9 x10^3/uL (1.0-4.8) Monocytes # (Auto) 0.6 x10^3/uL (0.0-1.1) 0.6 x10^3/uL (0.0-1.1) Eosinophils # (Auto) 0.0 x10^3/uL (0.0-0.7) 0.2 x10^3/uL (0.0-0.7) Basophils # (Auto) 0.0 x10^3/uL (0.0-0.2) 0.0 x10^3/uL (0.0-0.2) Laboratory Tests Test 08/13/18 05:10 White Blood Count 7.7 x10^3/uL (4.0-11.0) Red Blood Count 3.56 x10^6/uL (3.50-5.40) Hemoglobin 10.6 g/dL (12.0-15.5) Hematocrit 31.9 % (36.0-47.0) Mean Corpuscular Volume 90 fL (79-100) Mean Corpuscular Hemoglobin 30 pg (25-35) Mean Corpuscular Hemoglobin Concent 33 g/dL (31-37) Red Cell Distribution Width 14.0 % (11.5-14.5) Platelet Count 257 x10^3/uL (140-400) Neutrophils (%) (Auto) 65 % (31-73) Lymphocytes (%) (Auto) 25 % (24-48) Monocytes (%) (Auto) 8 % (0-9) Eosinophils (%) (Auto) 2 % (0-3) Basophils (%) (Auto) 0 % (0-3) Neutrophils # (Auto) 5.0 x10^3uL (1.8-7.7) Lymphocytes # (Auto) 1.9 x10^3/uL (1.0-4.8) Monocytes # (Auto) 0.6 x10^3/uL (0.0-1.1) Eosinophils # (Auto) 0.2 x10^3/uL (0.0-0.7) Basophils # (Auto) 0.0 x10^3/uL (0.0-0.2) Sodium Level 142 mmol/L (136-145) Potassium Level 3.5 mmol/L (3.5-5.1) Chloride Level 107 mmol/L (98-107) Carbon Dioxide Level 25 mmol/L (21-32) Anion Gap 10 (6-14) Blood Urea Nitrogen 12 mg/dL (7-20) Creatinine 0.7 mg/dL (0.6-1.0) Estimated GFR (Cockcroft-Gault) 104.7 Glucose Level 79 mg/dL (70-99) Calcium Level 8.1 mg/dL (8.5-10.1) Problem List Problems Medical Problems: (1) Enteritis Status: Acute Assessment/Plan still with pain, some improvement possible operative needs if not resolved will ask cardiology to eval preop TONY LAW MD 08/13/18 1810: SURGICAL PROGRESS NOTE Assessment/Plan Pt seen and examined. Agree with Ms. Freeman's note Pt reports definite improvement abd soft, mild TTP agree with GI w/u no current surgical plans. UGO FREEMAN WELFARE ADVISER August 13, 2018 08:53 TONY LAW MD August 13, 2018 18:10
[2018-08-13 11:00] VITALS: BP 114/56
[2018-08-13] MEDS: cefTRIAXone IV Push 1 GM VIAL. IVP SCH (11:18)
--- NOTE | 2018-08-13 11:57 | PDOC ---
PROGRESS NOTES Subjective Subjective feels better today, started on clear liquid diet Objective Objective Vital Signs Date Time Temp Pulse Resp B/P (MAP) Pulse Ox O2 Delivery O2 Flow Rate FiO2 08/13/18 11:24 Room Air 08/13/18 08:52 85 117/60 08/13/18 07:00 99.7 16 97 99.7 Intake and Output 08/13/18 07:00 Output Total 300 ml Balance -300 ml Output Urine Total 300 ml # Voids 3 Physical Exam Abdomen: Soft, Other (mild ttp mid abdomen) Heart: Regular rate, Normal S1, Normal S2, No murmurs Extremities: No clubbing, No cyanosis General: Alert, Oriented X3, Cooperative, No acute distress HEENT: PERRLA, Mucous membr. moist/pink Lungs: Clear to auscultation, Normal air movement MUSCULOSKELETAL: No joint tenderness, No deformity Psych/Mental Status: Mental status NL, Mood NL Skin: No rashes, No breakdown Diagnosis Problem List Problems Medical Problems: (1) Enteritis Status: Acute Assessment Assessment 1. Acute abdominal pain, clinically does not appear to be ischemic colitis,small intestine wbc 7.0 down to normal. 2. Hypertension. 3. Leukocytosis. This may be partly due to steroids, partly due to her gastrointestinal issues.IV antibiotics flagyl.Rocephin 4. Gastroesophageal reflux disease. PLAN: CTA noted, small intestinal inflammation. lab reyes clear liquid diet . iv antibiotics advance diet slowly. IV normal saline, start IV Rocephin and metronidazole. Consult Dr. Blane Bae for GI evaluation and management. They have consulted Dr. Pleitez for surgical evaluation and management. I also consulted Dr. Cristopher Tinsley for Infectious Disease evaluation and management. I will discontinue fentanyl as it has not been effective and change it to IV morphine 4 mg q. 4 hours p.r.n., monitor for worsening abdominal pain. I will restart amlodipine and carvedilol, but I will hold off on other hypertensive agents including spironolactone. For details, please refer to the orders. Recheck labs in a.m. Diet advanced to clear liquids. Leukocytosis is improving. Discussed with surgery. Patient will have a CTA. Continue IV fluids. Plan Plan of Care Problems Medical Problems: (1) Enteritis Status: Acute Comment Review of Relevant I have reviewed the following items anne (where applicable) has been applied. Labs Laboratory Tests Test 08/13/18 05:10 White Blood Count 7.7 x10^3/uL (4.0-11.0) Red Blood Count 3.56 x10^6/uL (3.50-5.40) Hemoglobin 10.6 g/dL (12.0-15.5) Hematocrit 31.9 % (36.0-47.0) Mean Corpuscular Volume 90 fL (79-100) Mean Corpuscular Hemoglobin 30 pg (25-35) Mean Corpuscular Hemoglobin Concent 33 g/dL (31-37) Red Cell Distribution Width 14.0 % (11.5-14.5) Platelet Count 257 x10^3/uL (140-400) Neutrophils (%) (Auto) 65 % (31-73) Lymphocytes (%) (Auto) 25 % (24-48) Monocytes (%) (Auto) 8 % (0-9) Eosinophils (%) (Auto) 2 % (0-3) Basophils (%) (Auto) 0 % (0-3) Neutrophils # (Auto) 5.0 x10^3uL (1.8-7.7) Lymphocytes # (Auto) 1.9 x10^3/uL (1.0-4.8) Monocytes # (Auto) 0.6 x10^3/uL (0.0-1.1) Eosinophils # (Auto) 0.2 x10^3/uL (0.0-0.7) Basophils # (Auto) 0.0 x10^3/uL (0.0-0.2) Sodium Level 142 mmol/L (136-145) Potassium Level 3.5 mmol/L (3.5-5.1) Chloride Level 107 mmol/L (98-107) Carbon Dioxide Level 25 mmol/L (21-32) Anion Gap 10 (6-14) Blood Urea Nitrogen 12 mg/dL (7-20) Creatinine 0.7 mg/dL (0.6-1.0) Estimated GFR (Cockcroft-Gault) 104.7 Glucose Level 79 mg/dL (70-99) Calcium Level 8.1 mg/dL (8.5-10.1) Medications Current Medications Lactobacillus Rhamnosus (Culturelle) 1 cap BID PO Last administered on 08/13/18at 08:48; Start 08/12/18 at 12:00 Sodium Chloride 1,000 ml @ 125 mls/hr Q8H IV Last administered on 08/13/18at 03:58; Start 08/12/18 at 15:15 Vitals/I & O Vital Sign - Last 24 Hours 08/12/18 08/12/18 08/12/18 08/12/18 12:24 15:00 16:36 17:00 Temp 99.3 99.3 Pulse 76 76 Resp 20 16 18 B/P (MAP) 114/60 (78) 114/60 Pulse Ox 96 O2 Delivery Room Air Room Air 08/12/18 08/12/18 08/12/18 08/12/18 18:50 19:51 20:00 21:01 Temp 98.8 98.8 Pulse 76 Resp 18 19 B/P (MAP) 119/60 (79) Pulse Ox 96 O2 Delivery Room Air Room Air Room Air 08/12/18 08/13/18 08/13/18 08/13/18 23:46 03:50 03:58 07:00 Temp 99.7 98.3 99.7 99.7 98.3 99.7 Pulse 79 79 85 Resp 18 18 16 B/P (MAP) 136/79 (98) 141/66 (91) 117/60 (79) Pulse Ox 93 97 97 O2 Delivery Room Air Room Air Room Air Room Air 08/13/18 08/13/18 08/13/18 08/13/18 08:00 08:51 08:52 08:56 Pulse 85 85 B/P (MAP) 117/60 117/60 O2 Delivery Room Air Room Air 08/13/18 11:24 O2 Delivery Room Air Intake and Output 08/12/18 08/12/18 08/13/18 15:00 23:00 07:00 Output Total 300 ml Balance -300 ml WESTON RAMSEY MD August 13, 2018 11:57
--- NOTE | 2018-08-13 13:01 | PDOC2 ---
CARDIOLOGY CONSULT NOTE CHEIF COMPLAINT: Abd pain HPI: 57 y.o admitted with abd pain, initial concern for ischemic colitis but less so now. Still have intermittent pain. Cardiology asked to see her for preop clearance. She denies any chest pain, has had chronic dyspnea. No other heart failure symptoms, syncope or palpitations. PMHX: 1. AL per patient w/o obstructive disease by cath at [facility] 1 yr ago 2. HTN 3. Dyslipidemia 4. PAD SOCHX: No alcohol, tob or illicit drug use. FAMHX: NC CURRENT MEDS: Coreg 12.5mg bid. Amlodipine 5mg daily ALLERGIES: Allergies Coded Allergies Type Severity Reaction Last Updated Verified amoxicillin Allergy Intermediate 09/15/16 Yes ciprofloxacin Allergy Intermediate Itching 09/16/16 Yes ciprofloxacin HCl Allergy Intermediate Itching 09/16/16 Yes clavulanic acid Allergy Intermediate 09/15/16 Yes ROS: Negative for 01/02 systems reviewed unless otherwise noted above in HPI PHYSICAL EXAM: Vital Signs: Vital Signs Date Time Temp Pulse Resp B/P (MAP) Pulse Ox O2 Delivery O2 Flow Rate FiO2 08/13/18 11:24 Room Air 08/13/18 11:00 99.1 78 18 114/56 (75) 97 99.1 I & O Intake and Output 08/13/18 07:00 Output Total 300 ml Balance -300 ml Output Urine Total 300 ml # Voids 3 Physical Exam: GEN.: No apparent distress. Alert and oriented. HEENT: Head is normocephalic, atraumatic NECK: Supple. LUNGS: Clear to auscultation. HEART: RRR, S1, S2 present. Peripheral pulses intact ABDOMEN: Mildly distended in the upper abd. EXTREMITIES: Without any cyanosis. Diminished pulses 1+ radial. non-palp pedal NEUROLOGIC: Normal speech, normal tone PSYCHIATRIC: Normal affect, normal mood. SKIN: bilateral lower ext excoriations DIAGNOSTIC TESTING: EKG wnl Stress at [facility] w/in the last yr wnl. ASSESSMENT: 1. Prior AL - unclear diagnosis 2. CAD - non-obs by cath with normal stress less than 1 yr ago. 3. HTN 4. Abdominal pain - less likely ischemic colitis. PLAN: 1. Low risk from a CV perspective for high risk surgery 2. No further medical changes. 3. When ready for DC, start ASA 81mg daily and statin therapy. Thanks for consultation. Pls call with questions. VERONICA BAER MD August 13, 2018 13:01
--- NOTE | 2018-08-13 14:31 | NUR ---
0715 IV fluids non-administered r/t previous bag still running.
--- NOTE | 2018-08-13 14:40 | PDOC ---
Infectious Disease Note Subjective Subjective pt is feeling better, no n/v/d/fever abd pain has improved ROS ROS no n/v/d/ Vital Sign Vital Signs Vital Signs Date Time Temp Pulse Resp B/P (MAP) Pulse Ox O2 Delivery O2 Flow Rate FiO2 08/13/18 14:03 Room Air 08/13/18 11:00 99.1 78 18 114/56 (75) 97 99.1 Physical Exam PHYSICAL EXAM GENERAL: Alert, oriented female, not in any distress. VITAL SIGNS: Stable, afebrile. HEENT: NAD. NECK: Supple, no JVP, no lymphadenopathy. LUNGS: Clear. HEART: S1, S2 regular. ABDOMEN: Slightly tender, no distention, no rebound or guarding, no organomegaly. EXTREMITIES: No edema or cyanosis. SKIN: Unremarkable. NEUROLOGIC: The patient is neurologically alert, awake and appropriate. No focal neurologic deficit. Labs Lab Laboratory Tests Test 08/13/18 05:10 White Blood Count 7.7 x10^3/uL (4.0-11.0) Red Blood Count 3.56 x10^6/uL (3.50-5.40) Hemoglobin 10.6 g/dL (12.0-15.5) Hematocrit 31.9 % (36.0-47.0) Mean Corpuscular Volume 90 fL (79-100) Mean Corpuscular Hemoglobin 30 pg (25-35) Mean Corpuscular Hemoglobin Concent 33 g/dL (31-37) Red Cell Distribution Width 14.0 % (11.5-14.5) Platelet Count 257 x10^3/uL (140-400) Neutrophils (%) (Auto) 65 % (31-73) Lymphocytes (%) (Auto) 25 % (24-48) Monocytes (%) (Auto) 8 % (0-9) Eosinophils (%) (Auto) 2 % (0-3) Basophils (%) (Auto) 0 % (0-3) Neutrophils # (Auto) 5.0 x10^3uL (1.8-7.7) Lymphocytes # (Auto) 1.9 x10^3/uL (1.0-4.8) Monocytes # (Auto) 0.6 x10^3/uL (0.0-1.1) Eosinophils # (Auto) 0.2 x10^3/uL (0.0-0.7) Basophils # (Auto) 0.0 x10^3/uL (0.0-0.2) Sodium Level 142 mmol/L (136-145) Potassium Level 3.5 mmol/L (3.5-5.1) Chloride Level 107 mmol/L (98-107) Carbon Dioxide Level 25 mmol/L (21-32) Anion Gap 10 (6-14) Blood Urea Nitrogen 12 mg/dL (7-20) Creatinine 0.7 mg/dL (0.6-1.0) Estimated GFR (Cockcroft-Gault) 104.7 Glucose Level 79 mg/dL (70-99) Calcium Level 8.1 mg/dL (8.5-10.1) Objective Assessment Gastritis from steroids and ibuprofen Abdominal pain, from # 1 , doubt ischemic colitis Recent rash , received medrol dose pack HTN h/o ischemic colitis Plan Plan of Care d/c rocephine and flagyl supportive care PPI liquid diet d/w dr Silvino OCHOA,TOSIN Davis MD August 13, 2018 14:40
[2018-08-13 15:00] VITALS: BP 96/54
--- NOTE | 2018-08-13 15:05 | PDOC ---
Subjective: Subjective: Abd pain still present. It is improved but worsens with liquids Objective: Vital Signs: Vital Signs Date Time Temp Pulse Resp B/P (MAP) Pulse Ox O2 Delivery O2 Flow Rate FiO2 08/13/18 14:51 Room Air 08/13/18 11:00 99.1 78 18 114/56 (75) 97 99.1 Labs: Laboratory Tests Test 08/13/18 05:10 White Blood Count 7.7 x10^3/uL (4.0-11.0) Red Blood Count 3.56 x10^6/uL (3.50-5.40) Hemoglobin 10.6 g/dL (12.0-15.5) Hematocrit 31.9 % (36.0-47.0) Mean Corpuscular Volume 90 fL (79-100) Mean Corpuscular Hemoglobin 30 pg (25-35) Mean Corpuscular Hemoglobin Concent 33 g/dL (31-37) Red Cell Distribution Width 14.0 % (11.5-14.5) Platelet Count 257 x10^3/uL (140-400) Neutrophils (%) (Auto) 65 % (31-73) Lymphocytes (%) (Auto) 25 % (24-48) Monocytes (%) (Auto) 8 % (0-9) Eosinophils (%) (Auto) 2 % (0-3) Basophils (%) (Auto) 0 % (0-3) Neutrophils # (Auto) 5.0 x10^3uL (1.8-7.7) Lymphocytes # (Auto) 1.9 x10^3/uL (1.0-4.8) Monocytes # (Auto) 0.6 x10^3/uL (0.0-1.1) Eosinophils # (Auto) 0.2 x10^3/uL (0.0-0.7) Basophils # (Auto) 0.0 x10^3/uL (0.0-0.2) Sodium Level 142 mmol/L (136-145) Potassium Level 3.5 mmol/L (3.5-5.1) Chloride Level 107 mmol/L (98-107) Carbon Dioxide Level 25 mmol/L (21-32) Anion Gap 10 (6-14) Blood Urea Nitrogen 12 mg/dL (7-20) Creatinine 0.7 mg/dL (0.6-1.0) Estimated GFR (Cockcroft-Gault) 104.7 Glucose Level 79 mg/dL (70-99) Calcium Level 8.1 mg/dL (8.5-10.1) Physical Exam: Physical Exam: GEN: NAD LUNGS: CTAB HEART: RRR ABD: quiet - a few bowel sounds to right, tender NEURO/PSYCH: A & O 3, tearful Assessment & Plan: Assessment : 1)Upper abd pain 2) Anemia - Hgb now 10.6 3) Mesenteric ischemia Plan: 1) D/w Dr Tinsley- will proceed with EGD tomorrow. She admits to NSAID use and has had a drop in her Hgb since admits 2) Change H2 to PPI GREGORY CUMMINGS MD August 13, 2018 15:05
[2018-08-13] MEDS ORDERED: 0.9 % SODIUM CHLORIDE 10 ML DISP.SYRIN. IV PRN (15:15)
[2018-08-13] MEDS: ONDANSETRON PF 4 MG/2 ML VIAL. IV PRN (17:34)
[2018-08-13 19:00] VITALS: BP 124/61
[2018-08-13 23:00] VITALS: BP 124/58
[2018-08-14] MEDS: MORPHINE SULFATE 2 MG/ML VIAL. IV PRN ×2 (01:50→08:22)
[2018-08-14 03:00] VITALS: BP 115/61
[2018-08-14 05:11] LABS: BASO % 0 % (0-3); EOS # 0.1 x10^3/uL (0.0-0.7); EOS % 2 % (0-3); HEMATOCRIT 31.9 % (36.0-47.0); HEMOGLOBIN 10.7 g/dL (12.0-15.5); LYMPH # 1.8 x10^3/uL (1.0-4.8); LYMPH % 28 % (24-48); MEAN CORPUSCULAR HEMOGLOBIN 30 pg (25-35); MEAN CORPUSCULAR HGB CONC 34 g/dL (31-37); MEAN CORPUSCULAR VOLUME 89 fL (79-100); MONO # 0.6 x10^3/uL (0.0-1.1); MONO % 9 % (0-9); NEUT # 4.1 x10^3uL (1.8-7.7); NEUT % 61 % (31-73); PLATELET COUNT 255 x10^3/uL (140-400); RED BLOOD COUNT 3.59 x10^6/uL (3.50-5.40); RED CELL DISTRIBUTION WIDTH 13.6 % (11.5-14.5); WHITE BLOOD COUNT 6.6 x10^3/uL (4.0-11.0)
[2018-08-14] MEDS: ONDANSETRON PF 4 MG/2 ML VIAL. IV PRN (05:25)
[2018-08-14 07:00] VITALS: BP 124/56
[2018-08-14] MEDS: IV NORMAL SALINE 1000ML BAG 1,000 ML IV SCH (07:56)
[2018-08-14] MEDS: CARVEDILOL 12.5 MG TABLET. PO SCH (08:00)
[2018-08-14] MEDS: FAMOTIDINE 20 MG/2 ML VIAL IVP SCH (08:23)
--- NOTE | 2018-08-14 08:33 | PDOC ---
UGO FREEMAN BUFFER AUTOMATIC 08/14/18 0833: SURGICAL PROGRESS NOTE Subjective pain is greatly improved from admission, however still present, about same as yesterday Vital Signs Vital Signs Date Time Temp Pulse Resp B/P (MAP) Pulse Ox O2 Delivery O2 Flow Rate FiO2 08/14/18 08:22 Room Air 08/14/18 07:00 98.0 67 18 124/56 (78) 98 98.0 I&O Intake and Output 08/14/18 07:00 Intake Total 1300 ml Output Total 300 ml Balance 1000 ml Intake Oral 200 ml IV Total 1100 ml Output Urine Total 300 ml # Voids 3 General: Alert, Oriented X3, Cooperative, No acute distress Abdomen: Soft, Other (mild TTP) Labs Laboratory Tests Test 08/13/18 05:10 08/14/18 04:30 White Blood Count 7.7 x10^3/uL (4.0-11.0) 6.6 x10^3/uL (4.0-11.0) Red Blood Count 3.56 x10^6/uL (3.50-5.40) 3.59 x10^6/uL (3.50-5.40) Hemoglobin 10.6 g/dL (12.0-15.5) 10.7 g/dL (12.0-15.5) Hematocrit 31.9 % (36.0-47.0) 31.9 % (36.0-47.0) Mean Corpuscular Volume 90 fL (79-100) 89 fL (79-100) Mean Corpuscular Hemoglobin 30 pg (25-35) 30 pg (25-35) Mean Corpuscular Hemoglobin Concent 33 g/dL (31-37) 34 g/dL (31-37) Red Cell Distribution Width 14.0 % (11.5-14.5) 13.6 % (11.5-14.5) Platelet Count 257 x10^3/uL (140-400) 255 x10^3/uL (140-400) Neutrophils (%) (Auto) 65 % (31-73) 61 % (31-73) Lymphocytes (%) (Auto) 25 % (24-48) 28 % (24-48) Monocytes (%) (Auto) 8 % (0-9) 9 % (0-9) Eosinophils (%) (Auto) 2 % (0-3) 2 % (0-3) Basophils (%) (Auto) 0 % (0-3) 0 % (0-3) Neutrophils # (Auto) 5.0 x10^3uL (1.8-7.7) 4.1 x10^3uL (1.8-7.7) Lymphocytes # (Auto) 1.9 x10^3/uL (1.0-4.8) 1.8 x10^3/uL (1.0-4.8) Monocytes # (Auto) 0.6 x10^3/uL (0.0-1.1) 0.6 x10^3/uL (0.0-1.1) Eosinophils # (Auto) 0.2 x10^3/uL (0.0-0.7) 0.1 x10^3/uL (0.0-0.7) Basophils # (Auto) 0.0 x10^3/uL (0.0-0.2) 0.0 x10^3/uL (0.0-0.2) Sodium Level 142 mmol/L (136-145) Potassium Level 3.5 mmol/L (3.5-5.1) Chloride Level 107 mmol/L (98-107) Carbon Dioxide Level 25 mmol/L (21-32) Anion Gap 10 (6-14) Blood Urea Nitrogen 12 mg/dL (7-20) Creatinine 0.7 mg/dL (0.6-1.0) Estimated GFR (Cockcroft-Gault) 104.7 Glucose Level 79 mg/dL (70-99) Calcium Level 8.1 mg/dL (8.5-10.1) Laboratory Tests Test 08/14/18 04:30 White Blood Count 6.6 x10^3/uL (4.0-11.0) Red Blood Count 3.59 x10^6/uL (3.50-5.40) Hemoglobin 10.7 g/dL (12.0-15.5) Hematocrit 31.9 % (36.0-47.0) Mean Corpuscular Volume 89 fL (79-100) Mean Corpuscular Hemoglobin 30 pg (25-35) Mean Corpuscular Hemoglobin Concent 34 g/dL (31-37) Red Cell Distribution Width 13.6 % (11.5-14.5) Platelet Count 255 x10^3/uL (140-400) Neutrophils (%) (Auto) 61 % (31-73) Lymphocytes (%) (Auto) 28 % (24-48) Monocytes (%) (Auto) 9 % (0-9) Eosinophils (%) (Auto) 2 % (0-3) Basophils (%) (Auto) 0 % (0-3) Neutrophils # (Auto) 4.1 x10^3uL (1.8-7.7) Lymphocytes # (Auto) 1.8 x10^3/uL (1.0-4.8) Monocytes # (Auto) 0.6 x10^3/uL (0.0-1.1) Eosinophils # (Auto) 0.1 x10^3/uL (0.0-0.7) Basophils # (Auto) 0.0 x10^3/uL (0.0-0.2) Problem List Problems Medical Problems: (1) Enteritis Status: Acute Assessment/Plan plans for EGD today will follow TONY LAW MD 08/14/18 0849: SURGICAL PROGRESS NOTE Assessment/Plan Pt seen and examined. Agree with MsClaudy Meng's note Pt with decreased pain, able to tolerate jello yesterday abd soft, min TTP w/u per GI UGO FREEMAN APRN August 14, 2018 08:33 TONY LAW MD August 14, 2018 08:49
[2018-08-14] MEDS: amLODIPine BESYLATE 10 MG TABLET PO SCH (09:00)
[2018-08-14] MEDS: LACTOBACILLUS RHAMNOSUS GG 1 CAPSULE. PO SCH (09:00)
--- NOTE | 2018-08-14 10:13 | PDOC ---
PROGRESS NOTES Subjective Subjective feels better, want to go home today Objective Objective Vital Signs Date Time Temp Pulse Resp B/P (MAP) Pulse Ox O2 Delivery O2 Flow Rate FiO2 08/14/18 08:22 Room Air 08/14/18 07:00 98.0 67 18 124/56 (78) 98 98.0 Intake and Output 08/14/18 06:59 Intake Total 1300 ml Output Total 300 ml Balance 1000 ml Intake Oral 200 ml IV Total 1100 ml Output Urine Total 300 ml # Voids 3 Physical Exam Abdomen: Soft, Other (mild TTP) Heart: Regular rate, Normal S1, Normal S2, No murmurs Extremities: No clubbing, No cyanosis General: Alert, Oriented X3, Cooperative, No acute distress HEENT: PERRLA, Mucous membr. moist/pink Lungs: Clear to auscultation, Normal air movement MUSCULOSKELETAL: No joint tenderness, No deformity Psych/Mental Status: Mental status NL, Mood NL Skin: No rashes, No breakdown Diagnosis Problem List Problems Medical Problems: (1) Enteritis Status: Acute Assessment Assessment 1. Acute abdominal pain, clinically does not appear to be ischemic colitis,small intestine wbc 7.0 down to normal. 2. Hypertension. 3. Leukocytosis. This may be partly due to steroids, partly due to her gastrointestinal issues.IV antibiotics flagyl.Rocephin 4. Gastroesophageal reflux disease. PLAN: Gi procedure today?small bowel series. home later today if ok with others. labs good. abd soft ,tolerating diet. CTA noted, small intestinal inflammation. lab reyes clear liquid diet . iv antibiotics advance diet slowly. IV normal saline, start IV Rocephin and metronidazole. Consult Dr. Blane Bae for GI evaluation and management. They have consulted Dr. Pleitez for surgical evaluation and management. I also consulted Dr. Cristopher Tinsley for Infectious Disease evaluation and management. I will discontinue fentanyl as it has not been effective and change it to IV morphine 4 mg q. 4 hours p.r.n., monitor for worsening abdominal pain. I will restart amlodipine and carvedilol, but I will hold off on other hypertensive agents including spironolactone. For details, please refer to the orders. Recheck labs in a.m. Diet advanced to clear liquids. Leukocytosis is improving. Discussed with surgery. Patient will have a CTA. Continue IV fluids. Plan Plan of Care Problems Medical Problems: (1) Enteritis Status: Acute Comment Review of Relevant I have reviewed the following items anne (where applicable) has been applied. Labs Laboratory Tests Test 08/14/18 04:30 White Blood Count 6.6 x10^3/uL (4.0-11.0) Red Blood Count 3.59 x10^6/uL (3.50-5.40) Hemoglobin 10.7 g/dL (12.0-15.5) Hematocrit 31.9 % (36.0-47.0) Mean Corpuscular Volume 89 fL (79-100) Mean Corpuscular Hemoglobin 30 pg (25-35) Mean Corpuscular Hemoglobin Concent 34 g/dL (31-37) Red Cell Distribution Width 13.6 % (11.5-14.5) Platelet Count 255 x10^3/uL (140-400) Neutrophils (%) (Auto) 61 % (31-73) Lymphocytes (%) (Auto) 28 % (24-48) Monocytes (%) (Auto) 9 % (0-9) Eosinophils (%) (Auto) 2 % (0-3) Basophils (%) (Auto) 0 % (0-3) Neutrophils # (Auto) 4.1 x10^3uL (1.8-7.7) Lymphocytes # (Auto) 1.8 x10^3/uL (1.0-4.8) Monocytes # (Auto) 0.6 x10^3/uL (0.0-1.1) Eosinophils # (Auto) 0.1 x10^3/uL (0.0-0.7) Basophils # (Auto) 0.0 x10^3/uL (0.0-0.2) Medications Current Medications Ondansetron HCl (Zofran) 8 mg PRN Q6HRS PRN IV NAUSEA/VOMITING Last administered on 08/14/18at 05:25; Start 08/13/18 at 17:30 Sodium Chloride (Normal Saline Flush) 3 ml QSHIFT PRN IV AFTER MEDS AND BLOOD DRAWS; Start 08/13/18 at 15:15 Vitals/I & O Vital Sign - Last 24 Hours 08/13/18 08/13/18 08/13/18 08/13/18 11:00 14:03 15:00 16:25 Temp 99.1 98.6 99.1 98.6 Pulse 78 78 78 Resp 18 19 B/P (MAP) 114/56 (75) 96/54 (68) 96/54 Pulse Ox 97 98 O2 Delivery Room Air Room Air Room Air 08/13/18 08/13/18 08/13/18 08/13/18 19:00 19:14 19:50 23:00 Temp 98.4 99.2 98.4 99.2 Pulse 79 76 Resp 16 16 B/P (MAP) 124/61 (82) 124/58 (80) Pulse Ox 95 95 O2 Delivery Room Air Room Air Room Air Room Air 08/14/18 08/14/18 08/14/18 08/14/18 01:50 02:20 03:00 07:00 Temp 98.3 98.0 98.3 98.0 Pulse 79 67 Resp 16 16 16 18 B/P (MAP) 115/61 (79) 124/56 (78) Pulse Ox 94 98 O2 Delivery Room Air Room Air Room Air Room Air 08/14/18 08/14/18 08:00 08:22 O2 Delivery Room Air Room Air Intake and Output 08/13/18 08/13/18 08/14/18 14:59 22:59 06:59 Intake Total 1100 ml 100 ml 100 ml Output Total 300 ml Balance 1100 ml 100 ml -200 ml WESTON RAMSEY MD August 14, 2018 10:13
[2018-08-14] MEDS ORDERED: MIDAZOLAM HCL/PF 5 MG/5 ML VIAL. ONE (10:30)
[2018-08-14] MEDS ORDERED: fentaNYL PF VIAL 100 MCG/2 ML VIAL ONE (10:30)
[2018-08-14] MEDS ORDERED: diphenhydrAMINE 50 MG/ML VIAL ONE ×2 (10:30→11:02)
[2018-08-14] MEDS ORDERED: BENZOCAINE ONE 20% MUCOSAL SPRAY. (10:51)
[2018-08-14] MEDS ORDERED: fentaNYL PF VIAL 100 MCG/2 ML VIAL IV ONE ×3 (10:54→10:58)
[2018-08-14] MEDS ORDERED: MIDAZOLAM HCL/PF 5 MG/5 ML VIAL. IV ONE ×5 (10:54→11:03)
[2018-08-14 11:00] VITALS: BP 132/60
[2018-08-14] MEDS ORDERED: diphenhydrAMINE 50 MG/ML VIAL IV ONE (11:03)
--- NOTE | 2018-08-14 11:20 | PDOC ---
Subjective: Subjective: EGD today Objective: Vital Signs: Vital Signs Date Time Temp Pulse Resp B/P (MAP) Pulse Ox O2 Delivery O2 Flow Rate FiO2 08/14/18 10:54 18 100 Nasal Cannula 08/14/18 10:25 98.0 74 98.0 08/14/18 07:00 124/56 (78) Labs: Laboratory Tests Test 08/14/18 04:30 White Blood Count 6.6 x10^3/uL (4.0-11.0) Red Blood Count 3.59 x10^6/uL (3.50-5.40) Hemoglobin 10.7 g/dL (12.0-15.5) Hematocrit 31.9 % (36.0-47.0) Mean Corpuscular Volume 89 fL (79-100) Mean Corpuscular Hemoglobin 30 pg (25-35) Mean Corpuscular Hemoglobin Concent 34 g/dL (31-37) Red Cell Distribution Width 13.6 % (11.5-14.5) Platelet Count 255 x10^3/uL (140-400) Neutrophils (%) (Auto) 61 % (31-73) Lymphocytes (%) (Auto) 28 % (24-48) Monocytes (%) (Auto) 9 % (0-9) Eosinophils (%) (Auto) 2 % (0-3) Basophils (%) (Auto) 0 % (0-3) Neutrophils # (Auto) 4.1 x10^3uL (1.8-7.7) Lymphocytes # (Auto) 1.8 x10^3/uL (1.0-4.8) Monocytes # (Auto) 0.6 x10^3/uL (0.0-1.1) Eosinophils # (Auto) 0.1 x10^3/uL (0.0-0.7) Basophils # (Auto) 0.0 x10^3/uL (0.0-0.2) Physical Exam: Physical Exam: GEN: NAD HEENT: OP clear CV: S1S2 without murmurs, rubs, or gallops RESP: CTAB without wheezing, rhonchi, or crackles ABD: NABS, SNT/ND EXT: No edema NEURO: AAO x 3 Assessment & Plan: Assessment : 1)Upper abd pain 2) Anemia - Hgb now 10.6 3) Mesenteric ischemia Plan: EGD (full note with pictures on chart) Meds Fentanyl 100 mcg, Versed 5 mg, Benadryl 50 mg Findings: 1) Esophagitis at 35 cm - s/p bx 2) Gastris with erosions - s/p bx 3) Normal duodenum- s/p x bulb and second portion P 1) Avoid unnecessary NSAIDs 2) Change H2 to BID PO PPI 3) Await path GREGORY CUMMINGS MD August 14, 2018 11:20
--- NOTE | 2018-08-14 12:40 | PDOC ---
Infectious Disease Note Subjective Subjective pt is feeling better, no n/v/d/fever abd pain has improved Vital Sign Vital Signs Vital Signs Date Time Temp Pulse Resp B/P (MAP) Pulse Ox O2 Delivery O2 Flow Rate FiO2 08/14/18 11:42 82 18 142/ 96 Room Air 08/14/18 11:12 98.3 98.3 Physical Exam PHYSICAL EXAM GENERAL: Alert, oriented female, not in any distress. VITAL SIGNS: Stable, afebrile. HEENT: NAD. NECK: Supple, no JVP, no lymphadenopathy. LUNGS: Clear. HEART: S1, S2 regular. ABDOMEN: Slightly tender, no distention, no rebound or guarding, no organomegaly. EXTREMITIES: No edema or cyanosis. SKIN: Unremarkable. NEUROLOGIC: The patient is neurologically alert, awake and appropriate. No focal neurologic deficit. Labs Lab Laboratory Tests Test 08/14/18 04:30 White Blood Count 6.6 x10^3/uL (4.0-11.0) Red Blood Count 3.59 x10^6/uL (3.50-5.40) Hemoglobin 10.7 g/dL (12.0-15.5) Hematocrit 31.9 % (36.0-47.0) Mean Corpuscular Volume 89 fL (79-100) Mean Corpuscular Hemoglobin 30 pg (25-35) Mean Corpuscular Hemoglobin Concent 34 g/dL (31-37) Red Cell Distribution Width 13.6 % (11.5-14.5) Platelet Count 255 x10^3/uL (140-400) Neutrophils (%) (Auto) 61 % (31-73) Lymphocytes (%) (Auto) 28 % (24-48) Monocytes (%) (Auto) 9 % (0-9) Eosinophils (%) (Auto) 2 % (0-3) Basophils (%) (Auto) 0 % (0-3) Neutrophils # (Auto) 4.1 x10^3uL (1.8-7.7) Lymphocytes # (Auto) 1.8 x10^3/uL (1.0-4.8) Monocytes # (Auto) 0.6 x10^3/uL (0.0-1.1) Eosinophils # (Auto) 0.1 x10^3/uL (0.0-0.7) Basophils # (Auto) 0.0 x10^3/uL (0.0-0.2) Objective Assessment Gastritis from steroids and ibuprofen Abdominal pain, from # 1 , doubt ischemic colitis Recent rash , received medrol dose pack HTN h/o ischemic colitis Plan Plan of Care d/c rocephine and flagyl supportive care PPI liquid diet d/w dr Silvino OCHOA,TOSIN Davis MD August 14, 2018 12:40
[2018-08-14 15:00] VITALS: BP 126/56
[2018-08-14] MEDS ORDERED: ACETAMINOPHEN 325 MG TABLET. PO PRN (15:00)
[2018-08-14] MEDS ORDERED: ACETAMINOPHEN 500 MG TABLET PO PRN (15:15)
--- NOTE | 2018-08-14 16:15 | NUR ---
Discharge Note: ALTAGRACIA FLORES Discharge instructions and discharge home medications reviewed with Patient and a copy given. All questions have been answered and understanding verbalized. The following instructions and handouts were given: Patient given education regarding gastritis, esophagitis, and pantoprazole. Discontinued lines and drains: Iv removed per protocol. Patient discharged home. Picked up by her .
[2018-08-14] MEDS ORDERED: PANTOPRAZOLE 40 MG TABLET.DR. PO SCH (16:30)
--- NOTE | 2018-08-15 11:15 | PDOC3 ---
IM DISCHARGE SUMMARY Date of Admission Date of Admission Date of Admission: August 11, 2018 at 06:04 Date of Discharge Date of Discharge August 14, 2018 Primary Diagnosis Primary Diagnosis 1. Acute abdominal pain 2. Hypertension. 3. Leukocytosis. This may be partly due to steroids, partly due to her gastrointestinal issues. 4. Gastroesophageal reflux disease. 5. Acute gastritis with NSAID use and steroid use 6. Mesenteric ischemia 7. Anemia Consults Consults Say Pleitez MD Labs Labs Laboratory Tests Test 08/13/18 05:10 08/14/18 04:30 White Blood Count 7.7 x10^3/uL (4.0-11.0) 6.6 x10^3/uL (4.0-11.0) Red Blood Count 3.56 x10^6/uL (3.50-5.40) 3.59 x10^6/uL (3.50-5.40) Hemoglobin 10.6 g/dL (12.0-15.5) 10.7 g/dL (12.0-15.5) Hematocrit 31.9 % (36.0-47.0) 31.9 % (36.0-47.0) Mean Corpuscular Volume 90 fL (79-100) 89 fL (79-100) Mean Corpuscular Hemoglobin 30 pg (25-35) 30 pg (25-35) Mean Corpuscular Hemoglobin Concent 33 g/dL (31-37) 34 g/dL (31-37) Red Cell Distribution Width 14.0 % (11.5-14.5) 13.6 % (11.5-14.5) Platelet Count 257 x10^3/uL (140-400) 255 x10^3/uL (140-400) Neutrophils (%) (Auto) 65 % (31-73) 61 % (31-73) Lymphocytes (%) (Auto) 25 % (24-48) 28 % (24-48) Monocytes (%) (Auto) 8 % (0-9) 9 % (0-9) Eosinophils (%) (Auto) 2 % (0-3) 2 % (0-3) Basophils (%) (Auto) 0 % (0-3) 0 % (0-3) Neutrophils # (Auto) 5.0 x10^3uL (1.8-7.7) 4.1 x10^3uL (1.8-7.7) Lymphocytes # (Auto) 1.9 x10^3/uL (1.0-4.8) 1.8 x10^3/uL (1.0-4.8) Monocytes # (Auto) 0.6 x10^3/uL (0.0-1.1) 0.6 x10^3/uL (0.0-1.1) Eosinophils # (Auto) 0.2 x10^3/uL (0.0-0.7) 0.1 x10^3/uL (0.0-0.7) Basophils # (Auto) 0.0 x10^3/uL (0.0-0.2) 0.0 x10^3/uL (0.0-0.2) Sodium Level 142 mmol/L (136-145) Potassium Level 3.5 mmol/L (3.5-5.1) Chloride Level 107 mmol/L (98-107) Carbon Dioxide Level 25 mmol/L (21-32) Anion Gap 10 (6-14) Blood Urea Nitrogen 12 mg/dL (7-20) Creatinine 0.7 mg/dL (0.6-1.0) Estimated GFR (Cockcroft-Gault) 104.7 Glucose Level 79 mg/dL (70-99) Calcium Level 8.1 mg/dL (8.5-10.1) Brief hospital course Brief hospital course This 57-year-old -[place] female started having severe abdominal pain in the upper abdomen since 08:00 a.m. yesterday. The patient has had some nausea and vomiting, but no diarrhea. She has had some constipation recently. She was treated with oral steroids for allergies and she was on the last dose of Medrol Dosepak. In the Emergency Room, the patient was evaluated. Her WBC count was 14.5, hemoglobin 12.1. Sodium 141, potassium 4.1, BUN 26, creatinine 0.9, glucose 116. AST 14, lipase 70, albumin is 3.6. WBC count 14.5, hemoglobin 12.1, polys 70. Urinalysis is negative except for 6-[address] scan of abdomen and pelvis showed mid small bowel loop thickening with inflammation to the mesentery surrounding this bowel loop, mildly dilated bowel at that location, but without severe obstruction, possible gallstones. Because of the acute abdominal pain, the patient was admitted for further evaluation and management. For more details regarding the past history, family history, social history, surgical history and other details, please refer to History and Physical. Keep her n.p.o., give IV fluids, IV normal saline, start IV Rocephin and metronidazole. Consult Dr. Blane Bae for GI evaluation and management. They have consulted Dr. Pleitez for surgical evaluation and management. I also consulted Dr. Cristopher Tinsley for Infectious Disease evaluation and management. I will discontinue fentanyl as it has not been effective and change it to IV morphine 4 mg q. 4 hours p.r.n., monitor for worsening abdominal pain. I will restart amlodipine and carvedilol, but I will hold off on other hypertensive agents including spironolactone. For details, please refer to the orders. Recheck labs in a.m. Diet advanced to clear liquids. Leukocytosis is improving. Discussed with surgery. Patient will have a CTA. Continue IV fluids. CTA- 1. Moderate aortoiliac calcific plaquing without evidence of aneurysm or high-grade stenosis. 2. 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 3. Ongoing mural thickening involving small bowel loops in the central abdomen with increasing associated mesenteric edema and free fluid in the pelvis. EGD- Findings: 1) Esophagitis at 35 cm - s/p bx 2) Gastris with erosions - s/p bx 3) Normal duodenum- s/p x bulb and second portion Acute abdominal pain precipitated due to use of NSAIDs and steroids causing gastritis and esophagitis. H2 blockers were discontinued. Patient was advised not to use NSAIDs and steroids. She was started on PPI. Mesenteric ischemia- continue to monitor. Initially patient required a lot of pain medications but she continued to improve and her diet was advanced and the pain medications were weaned off and patient was discharged home. Has no evidence of any infection so antibiotics were discontinued. Condition at the time of discharge much better. Medications Medications reviewed and reconciled for discharge. Allergy Allergies Coded Allergies Type Severity Reaction Last Updated Verified amoxicillin Allergy Intermediate 08/14/18 Yes ciprofloxacin Allergy Intermediate Itching 08/14/18 Yes ciprofloxacin HCl Allergy Intermediate Itching 08/14/18 Yes clavulanic acid Allergy Intermediate 08/14/18 Yes Follow up in 5 days. DISPOSITION: Home Comments Discharge Management - 35 minutes. For other details please refer to discharge instructions DENZEL LOERA MD August 15, 2018 11:15
--- NOTE | 2018-08-17 15:06 | PATHOLOGY ---
[facility] Accession Number: [id number] . 01 Material submitted: . PART A: small bowel - SMALL BOWEL BIOPSY PART B: stomach - GASTRIC ANTRUM BIOPSY PART C: esophagus - DISTAL ESOPHAGUS BIOPSY. Modifiers: distal . 01 Clinical history: . Abd pain . 02 Diagnosis: A. Small bowel biopsy: - No significant pathologic abnormalities. . B. Gastric biopsy, antrum: - Chronic gastritis, mild. . C. Esophageal biopsy, distal esophagus: - Segment of slightly hyperplastic squamous esophageal mucosa, and segment of gastric mucosa showing slight chronic inflammation. . (JPM:dusty; 08/17/2018) R/08/17/2018 . 02 Comment: Sections of the small bowel biopsy reveal segments of duodenal and small intestine mucosa. Where best oriented, mucosal villi show no sprue-like changes or significant inflammatory changes. . Sections of the gastric antral biopsy show congestion and patchy mild chronic inflammation with a few admixed eosinophils. A properly controlled immunoperoxidase stain for Helicobacter is negative for Helicobacter organisms. . Sections of the distal esophageal biopsy reveal a segment of slightly hyperplastic squamous esophageal mucosa, and a segment of gastric mucosa showing slight chronic inflammation. There is no evidence of Roy's change, dysplasia, or malignancy. . (JPM:dusty; 08/17/2018) . Special stain performed: Immunoperoxidase stain for Helicobacter on B1. . 02 Electronically signed: . Juan Miguel Devi MD, Pathologist NPI- [id number] . 01 Gross description: . A. The specimen is received in formalin, labeled "[facility], [place], small bowel BX" and consists of 3 fragments of lundberg tissue measuring between 0.6 x 0.3 cm and 0.3 x 0.2 cm which are entirely submitted in A1. . B. The specimen is received in formalin, labeled "[facility], [place], gastric antrum BX" and consists of a fragment lundberg tissue measuring 0.6 x 0.2 x 0.1 cm which is entirely submitted in B1. . C. The specimen is received in formalin, labeled "[facility], [place], distal esophagus BX" and consists of 2 translucent fragments of carl-lundberg tissue measuring 0.3 x 0.3 cm and 0.5 x 0.3 cm which are entirely submitted in C1. (SDY; 08/16/2018) SYU/SYU . 02 Pathologist provided ICD-10: K29.50, K20.9 . 02 CPT . 783841, 174007, 127013, R99800 Specimen Comment: A courtesy copy of this report has been sent to Specimen Comment: [phone], , . Specimen Comment: Report sent to ,DR LOERA / DR WOOTEN Performed at: 01 [facility] [address], [place] [id number] MD Shane Byrd MD Phone: [phone] Performed at: 02 [facility] [address], [place] [id number] MD Juan Miguel Devi MD Phone: [phone]
== END 2018-08-14 16:18 | disposition home or self-care (01) | DRG 392 ==
LOC: ER 01:23 → 5 NORTH 06:04
PROVIDERS: ADMIT Internal Medicine; ATTEND Internal Medicine
PROC: 0DB68ZX Excision of Stomach, Via Natural or Artificial Opening Endoscopic, Diagnostic (ICD-10-PCS; 2018-08-14)
PROC: 0DB58ZX Excision of Esophagus, Via Natural or Artificial Opening Endoscopic, Diagnostic (ICD-10-PCS; 2018-08-14)
PROC: 0DB98ZX Excision of Duodenum, Via Natural or Artificial Opening Endoscopic, Diagnostic (ICD-10-PCS; principal; 2018-08-14 11:00)
DX: K29.00 Acute gastritis without bleeding (principal); K55.9 Vascular disorder of intestine, unspecified; K21.0 Gastro-esophageal reflux disease with esophagitis; I10 Essential (primary) hypertension; I25.10 Atherosclerotic heart disease of native coronary artery without angina pectoris; E66.9 Obesity, unspecified; D72.828 Other elevated white blood cell count; E78.5 Hyperlipidemia, unspecified; I73.9 Peripheral vascular disease, unspecified; T38.0X5A Adverse effect of glucocorticoids and synthetic analogues, initial encounter; D64.9 Anemia, unspecified; T39.395A Adverse effect of other nonsteroidal anti-inflammatory drugs [NSAID], initial encounter; Z90.710 Acquired absence of both cervix and uterus; Z90.49 Acquired absence of other specified parts of digestive tract; Z88.1 Allergy status to other antibiotic agents; Z88.0 Allergy status to penicillin; Z82.49 Family history of ischemic heart disease and other diseases of the circulatory system; Z87.19 Personal history of other diseases of the digestive system; Z68.28 Body mass index [BMI] 28.0-28.9, adult; I25.2 Old myocardial infarction; Y92.89 Other specified places as the place of occurrence of the external cause
CPT/HCPCS: 36415; 43239; 74174; 74177; 80048; 80053; 81001; 83605; 83690; 85025; 85379; 85610; 88305; 88342; 93005; 96361; 96365; 96375; 96376; G0500; J0696; J1170; J1200; J2250; J2270; J2405; J3010; J3490; J7030; Q9967; 99285-25

== ENCOUNTER 2021-02-05 01:35 | Inpatient (IN) | payer OTHER ==
[~2021-02-05] VITALS: Ht 165.1 cm; Wt 73.1 kg
[~2021-02-05 01:35] MED LIST changes: +AMLO-186 PO; -AMLO5TAB10 PO; +ATOR40TA59 PO; +CARV12.5 PO; +CEFD300C PO; +HYDR-2765 PO; +LISI20TA18 PO; +METH4TAB7 PO; +METR500T PO; +MUPI22OI2 TP; +ONDA4TAB7 PO; +SPIR25TA5 PO
[2021-02-05] MEDS ORDERED: fentaNYL PF VIAL 100 MCG/2 ML VIAL IVP ONE (05:00)
[2021-02-05] MEDS ORDERED: IV NORMAL SALINE 1000ML BAG 1,000 ML IV ONE (05:00)
[2021-02-05] MEDS ORDERED: ONDANSETRON PF 4 MG/2 ML VIAL. IVP ONE (05:00)
--- NOTE | 2021-02-05 05:10 | ED.ADGEN ---
Past Medical History Past Medical History: GERD, Hypertension Additional Past Medical Histor: ischemic colitis Past Surgical History: Appendectomy, Hysterectomy Additional Past Surgical Histo: LIGAMENTS AND TENDONS REPAIR ON RIGHT ARM Smoking Status: Never Smoker Alcohol Use: Occasionally Drug Use: None General Adult EDM: Chief Complaint: ABDOMINAL PAIN HPI: HPI: Patient is a 60 year old 60-year-old female coming in for low midline abdominal pain starting last night about 1800. Superior-posterior wound. Last intake just prior to pain starting. She has a history of ischemic colitis and was hospitalized 2 years ago. Patient has history of numerous abdominal surgeries were performed about 20 years ago. States she has had some blood when wiping stool but has a history of hemorrhoids and denies any rectal pain. Has had some nausea and vomiting. Denies any fevers, cough or chills. Has not had her Covid or influenza vaccines Review of Systems: Review of Systems: All other systems within normal limits except for as noted in the HPI Current Medications: Current Medications Medications (Trade) Dose Ordered Sig/Annika Start Time Stop Time Status Last Admin Dose Admin Fentanyl Citrate (Fentanyl 2ml Vial) 75 mcg 1X ONCE 02/05/21 05:00 02/05/21 05:02 DC 02/05/21 05:09 75 MCG Info (CONTRAST GIVEN -- Rx MONITORING) 1 each PRN DAILY PRN 02/05/21 05:45 02/07/21 05:44 Iohexol (Omnipaque 350 Mg/ml) 75 ml 1X ONCE 02/05/21 05:30 02/05/21 05:34 DC 02/05/21 05:51 75 ML Metronidazole (Flagyl) 500 mg Q8HRS 02/05/21 14:00 UNV Morphine Sulfate (Morphine Sulfate) 4 mg PRN Q2HR PRN 02/05/21 07:30 02/06/21 07:29 UNV Ondansetron HCl (Zofran) 4 mg 1X ONCE 02/05/21 05:00 02/05/21 05:02 DC 02/05/21 05:09 4 MG Sodium Chloride 1,000 ml @ 75 mls/hr [id number] 02/05/21 07:30 02/06/21 07:29 UNV Allergies: Allergies: Allergies Coded Allergies Type Severity Reaction Last Updated Verified amoxicillin Allergy Intermediate 08/14/18 Yes ciprofloxacin Allergy Intermediate Itching 08/14/18 Yes ciprofloxacin HCl Allergy Intermediate Itching 08/14/18 Yes clavulanic acid Allergy Intermediate 08/14/18 Yes Physical Exam: PE: Constitutional: Well developed, well nourished, no acute distress, non-toxic appearance. [] HENT: Normocephalic, atraumatic, bilateral external ears normal, nose normal. [] Eyes: PERRLA, conjunctiva normal, no discharge. [] Neck: No rigidity, supple, no stridor. [] Cardiovascular: Regular rate and rhythm, brisk cap refill [] Lungs & Thorax: Non labored symmetric respirations, no tachypnea or respiratory distress [] Abdomen: Soft, nondistended, low central tenderness palpation, well-healed surgical scars without hernia.. Skin: Warm, dry, no erythema, no rash. [] Back: Unremarkable Extremities: No deformities, range of motion grossly intact, no lower extremity edema [] Neurologic: Alert and oriented X 3, no focal deficits noted. [] Psychologic: Affect normal, judgement normal, mood normal. [] Current Patient Data: Labs: Laboratory Tests Test 02/05/21 04:35 02/05/21 04:37 02/05/21 06:12 Urine Collection Type Unknown Urine Color Yellow Urine Clarity Clear Urine pH 6.0 (<5.0-8.0) Urine Specific Langtry >=1.030 (1.000-1.030) Urine Protein Negative mg/dL (NEG-TRACE) Urine Glucose (UA) Negative mg/dL (NEG) Urine Ketones (Stick) Trace mg/dL (NEG) Urine Blood Negative (NEG) Urine Nitrite Negative (NEG) Urine Bilirubin Negative (NEG) Urine Urobilinogen Dipstick 1.0 mg/dL (0.2 mg/dL) Urine Leukocyte Esterase Negative (NEG) Urine RBC 1-2 /HPF (0-2) Urine WBC Occ /HPF (0-4) Urine Squamous Epithelial Cells Mod /LPF Urine Bacteria 0 /HPF (0-FEW) Urine Mucus Mod /LPF White Blood Count 9.0 x10^3/uL (4.0-11.0) Red Blood Count 4.46 x10^6/uL (3.50-5.40) Hemoglobin 13.4 g/dL (12.0-15.5) Hematocrit 40.1 % (36.0-47.0) Mean Corpuscular Volume 90 fL (79-100) Mean Corpuscular Hemoglobin 30 pg (25-35) Mean Corpuscular Hemoglobin Concent 33 g/dL (31-37) Red Cell Distribution Width 13.6 % (11.5-14.5) Platelet Count 337 x10^3/uL (140-400) Neutrophils (%) (Auto) 85 % (31-73) H Lymphocytes (%) (Auto) 9 % (24-48) L Monocytes (%) (Auto) 5 % (0-9) Eosinophils (%) (Auto) 0 % (0-3) Basophils (%) (Auto) 0 % (0-3) Neutrophils # (Auto) 7.6 x10^3/uL (1.8-7.7) Lymphocytes # (Auto) 0.8 x10^3/uL (1.0-4.8) L Monocytes # (Auto) 0.5 x10^3/uL (0.0-1.1) Eosinophils # (Auto) 0.0 x10^3/uL (0.0-0.7) Basophils # (Auto) 0.0 x10^3/uL (0.0-0.2) Sodium Level 135 mmol/L (136-145) L Potassium Level 4.6 mmol/L (3.5-5.1) Chloride Level 99 mmol/L (98-107) Carbon Dioxide Level 31 mmol/L (21-32) Anion Gap 5 (6-14) L Blood Urea Nitrogen 20 mg/dL (7-20) Creatinine 1.0 mg/dL (0.6-1.0) Estimated GFR (Cockcroft-Gault) 68.7 BUN/Creatinine Ratio 20 (6-20) Glucose Level 126 mg/dL (70-99) H Calcium Level 9.1 mg/dL (8.5-10.1) Total Bilirubin 0.6 mg/dL (0.2-1.0) Aspartate Amino Transferase (AST) 20 U/L (15-37) Alanine Aminotransferase (ALT) 32 U/L (14-59) Alkaline Phosphatase 95 U/L (46-116) Total Protein 7.4 g/dL (6.4-8.2) Albumin 4.1 g/dL (3.4-5.0) Albumin/Globulin Ratio 1.2 (1.0-1.7) Lactic Acid Level 1.3 mmol/L (0.4-2.0) Laboratory Tests 02/05/21 04:37 Laboratory Tests 02/05/21 04:37 Vital Signs: Vital Signs Date Time Temp Pulse Resp B/P (MAP) Pulse Ox O2 Delivery O2 Flow Rate FiO2 02/05/21 07:21 20 97 Room Air 02/05/21 04:43 98.7 87 139/66 (90) 98.7 EKG: EKG: [] Heart Score: C/O Chest Pain: No Risk Factors: Risk Factors: DM, Current or recent (<one month) smoker, HTN, HLP, family history of CAD, obesity. Risk Scores: Score 0 - 3: 2.5% MACE over next 6 weeks - Discharge Home Score 4 - 6: 20.3% MACE over next 6 weeks - Admit for Clinical Observation Score 7 - 10: 72.7% MACE over next 6 weeks - Early Invasive Strategies Radiology/Procedures: Radiology/Procedures: [][facility] [address] [place] [address] IMAGING REPORT Signed PATIENT: ALTAGRACIA FLORES ACCOUNT: [id number] : 1960 LOCATION: ER AGE: 60 SEX: F EXAM STATUS: REG ER ORD. PHYSICIAN: JOSE RAMIREZ MD REASON: abd pain, h/o ischemic colitis;OMNI 350, 75ML PROCEDURE: CT ANGIOGRAPHY ABD AND PELVIS CTA OF THE ABDOMEN AND PELVIS WITH IV CONTRAST. History: Reason: abd pain, h/o ischemic colitis Comparison:None. Procedure: Contiguous axial images of the abdomen and pelvis were performed after the administration of 75 cc of Omni 350 IV contrast. Timing is appropriate for arterial evaluation multiplanar reconstruction was performed on separate imaging workstation including 3-D maximum intensity projected imaging as well as 3-D arterial surface rendering. Oral contrast: No. Findings: There is calcification of the candelaria of the aorta and great vessels without aneurysm or dissection. The celiac axis and SMA are patent. The renal arteries are patent. There is mild wall thickening of the sigmoid colon with mild surrounding inflammation. Liver: 2 cysts in the right lobe Spleen: Unremarkable Pancreas: Unremarkable Adrenal Glands: Unremarkable Kidneys: Small cyst on the left There is no mass or lymphadenopathy. There is no free air. There is no free fluid. The urinary bladder appears normal. Impression: Multiple thickening surrounding inflammation involving the sigmoid colon. This could be diverticulitis but could be inflammatory or infectious colitis. There is no air in the wall to suggest ischemic colitis. End Impression PQRS Compliance Statement: One or more of the following individualized dose reduction techniques were utilized for this examination: 1. Automated exposure control 2. Adjustment of the mA and/or kV according to patient size 3. Use of iterative reconstruction technique Electronically signed by: Juliette Guillory III, MD (02/05/2021 6:21 AM) [facility] DICTATED and SIGNED BY: JULIETTE GUILLORY III, MD DATE: 02/05/21 [id number] 0 Course & Med Decision Making: Course & Med Decision Making Pertinent Labs and Imaging studies reviewed. (See chart for details) Labs unremarkable, care transition at shift change. Patient is a 60-year-old female who present to ER due to abdominal pain on the left side. CT scan her abdomen pelvis show evidence of diverticulitis. Patient was given pain medication in the ER, however she was still in pain with nausea vomiting therefore patient be admitted to hospital for pain control and antibiotic. Discussed with her family physician Dr. Hernandez at 7:15 AM who agreed to admit the patient Drageileen Disclaimer: Gene Disclaimer: This electronic medical record was generated, in whole or in part, using a voice recognition dictation system. Departure Departure Impression: Primary Impression: Acute diverticulitis Additional Impression: Abdominal pain Disposition: ADMITTED INPATIENT Admitting Physician: Denzel Hernandez Condition: STABLE Referrals: DENZEL HERNANDEZ MD (PCP) Problem Qualifiers JOSE RAMIREZ MD Feb 05, 2021 05:09 SYDNIE PRITCHARD DO Feb 05, 2021 07:25
[2021-02-05 05:13] LABS: BILIRUBIN,URINE NEGATIVE (NEG); CLARITY,URINE CLEAR; COLOR,URINE YELLOW; NITRITE,URINE NEGATIVE (NEG); PROTEIN,URINE NEGATIVE (NEG-TRACE)
[2021-02-05 05:17] LABS: BASO % 0 % (0-3); EOS % 0 % (0-3); HEMATOCRIT 40.1 % (36.0-47.0); HEMOGLOBIN 13.4 g/dL (12.0-15.5); LYMPH # 0.8 x10^3/uL (1.0-4.8); LYMPH % 9 % (24-48); MEAN CORPUSCULAR HEMOGLOBIN 30 pg (25-35); MEAN CORPUSCULAR HGB CONC 33 g/dL (31-37); MEAN CORPUSCULAR VOLUME 90 fL (79-100); MONO # 0.5 x10^3/uL (0.0-1.1); MONO % 5 % (0-9); NEUT # 7.6 x10^3/uL (1.8-7.7); NEUT % 85 % (31-73); PLATELET COUNT 337 x10^3/uL (140-400); RED BLOOD COUNT 4.46 x10^6/uL (3.50-5.40); RED CELL DISTRIBUTION WIDTH 13.6 % (11.5-14.5)
[2021-02-05 05:19] LABS: BACTERIA,URINE 0 /HPF (0-FEW); WBC,URINE OCC /HPF (0-4)
[2021-02-05 05:22] LABS: CALCIUM 9.1 mg/dL (8.5-10.1); GFR 68.7; POTASSIUM 4.6 mmol/L (3.5-5.1)
[2021-02-05 05:27] LABS: ALBUMIN 4.1 g/dL (3.4-5.0); ALBUMIN/GLOBULIN RATIO 1.2 (1.0-1.7); TOTAL BILIRUBIN 0.6 mg/dL (0.2-1.0); TOTAL PROTEIN 7.4 g/dL (6.4-8.2)
[2021-02-05] MEDS ORDERED: IOHEXOL 350 MG/ML 100 ML VIAL. IV ONE (05:30)
[2021-02-05] MEDS ORDERED: CONTRAST GIVEN. MC PRN (05:45)
--- NOTE | 2021-02-05 06:23 | RAD ---
CTA OF THE ABDOMEN AND PELVIS WITH IV CONTRAST. History: Reason: abd pain, h/o ischemic colitis Comparison:None. Procedure: Contiguous axial images of the abdomen and pelvis were performed after the administration of 75 cc o f Omni 350 IV contrast. Timing is appropriate for arterial evaluation multiplanar reconstruction was performed on separate imaging workstation including 3-D maximum intensity projected imaging as well a s 3-D arterial surface rendering. Oral contrast: No. Findings: There is calcification of the candelaria of the aorta and great vessels without aneurysm or dissection. Th e celiac axis and SMA are patent. The renal arteries are patent. There is mild wall thickening of the sigmoid colon with mild surrounding inflammation. Liver: 2 cysts in the right lobe Spleen: Unremarkable Pancreas: Unremarkable Adrenal Glands: Unremarkable Kidneys: Small cyst on the left There is no mass or lymphadenopathy. There is no free air. There is no free fluid. The urinary bladder appears normal. Impression: Multiple thickening surrounding inflammation involving the sigmoid colon. This could be diverticuliti s but could be inflammatory or infectious colitis. There is no air in the wall to suggest ischemic co litis. End Impression PQRS Compliance Statement: One or more of the following individualized dose reduction techniques were utilized for this examinat ion: 1. Automated exposure control 2. Adjustment of the mA and/or kV according to patient size 3. Use of iterative reconstruction technique Electronically signed by: Jann Coleman III, MD (02/05/2021 6:21 AM) [facility]
[2021-02-05] MEDS ORDERED: MORPHINE SULFATE 4 MG/ML INJ. IVP ONE (07:15)
[2021-02-05] MEDS ORDERED: metroNIDAZOLE 500 MG TABLET PO ONE (07:15)
[2021-02-05] MEDS: metroNIDAZOLE 500 MG TABLET PO SCH ×3 (07:30→22:00)
[2021-02-05] MEDS ORDERED: IV NORMAL SALINE 1000ML BAG 1,000 ML IV SCH (07:30)
[2021-02-05] MEDS ORDERED: MORPHINE SULFATE 4 MG/ML INJ. IVP PRN (07:30)
[2021-02-05] MEDS ORDERED: hydrALAZINE 20 MG/ML VIAL. IVP PRN (09:45)
[2021-02-05] MEDS ORDERED: POTASSIUM CHLORIDE 20 MEQ in IV NORMAL SALINE 1000ML BAG 1,000 ML IV SCH (09:45)
--- NOTE | 2021-02-05 09:54 | PDOC ---
Provider Note Date of Service: DATE: 02/05/21 TIME: 09:53 Provider Note H&P dictated. Justifications for Admission Other Justification DENZEL LOERA MD Feb 05, 2021 09:54
--- NOTE | 2021-02-05 10:32 | HP ---
DATE OF SERVICE: 02/05/2021 ADMIT DATE: 02/05/2021 HISTORY OF PRESENT ILLNESS: This 60-year-old female who has a history of mesenteric ischemia and ischemic colitis, started having abdominal pain, nausea and vomiting yesterday evening. The day before, she had eaten black walnut ice cream. She denies any fever, chills, GI bleeding, melena or diarrhea. She denies any fatigue. In the emergency room, CT scan of abdomen and pelvis showed multiple thickening surrounding inflammation involving the sigmoid colon. This could be diverticulitis, but could be inflammatory or infectious colitis. There is no air in the wall to suggest ischemic colitis. Because of the acute diverticulitis with significant abdominal pain, nausea and vomiting, the patient was admitted for further evaluation and management. Urinalysis is clear. Sodium 135, potassium 4.6, glucose 126, calcium 9.1, albumin 4.1, AST 20, ALT 32, BUN 20, creatinine 1.0. WBC count 9, hemoglobin 13.4, polys 85, platelet count 337,000. SYSTEMS REVIEW: As noted above, the patient denies any cold, cough, congestion, chest pains, palpitations, dyspnea or dizziness. Other systems reviewed and are negative. PAST MEDICAL HISTORY: Includes history of admission here in 07/2018 for acute abdominal pain, hypertension, ischemic colitis, gastroesophageal reflux disease, acute gastritis. She has a history of hypertension and hemorrhoids. PAST SURGICAL HISTORY: Includes appendectomy and hysterectomy and ligament and tendon repair of the right arm. SOCIAL HISTORY: No history of alcoholism, drug abuse or smoking. ALLERGIES: THE PATIENT IS ALLERGIC TO AMOXICILLIN, CIPROFLOXACIN, AND CLAVULANIC ACID. She is able to take Rocephin. MEDICATIONS: Reviewed and reconciled. FAMILY HISTORY: Positive for hypertension. PHYSICAL EXAMINATION: VITAL SIGNS: Temperature 98.7, pulse 87 per minute, respirations 18 per minute, blood pressure 139/66 mmHg. GENERAL: The patient is alert, oriented x 3, and not in acute distress. EYES: Pupils reactive to light. Conjunctivae pink. Sclerae white. HENT: Unremarkable. NECK: Supple. JVP normal. No thyromegaly. Trachea midline. LUNGS: Clear. CARDIOVASCULAR: S1, S2, regular. ABDOMEN: Soft. The patient has scars of surgery in the lower abdomen. Tenderness present in the lower abdomen, more on the left side. No guarding, no rigidity. Bowel sounds present. EXTREMITIES: No edema, no cyanosis, no calf tenderness. CENTRAL NERVOUS SYSTEM: Alert and oriented, moves extremities. No acute changes. LABORATORY FINDINGS: As noted earlier. IMPRESSION: 1. Acute abdominal pain, possible diverticulitis versus ischemic colitis. 2. Hypertension. 3. Gastroesophageal reflux disease. 4. History of ischemic colitis. PLAN: Admit to [facility]. Start IV Rocephin and Flagyl. Consult Dr. Bae for GI evaluation and management. Keep her n.p.o. Give blood pressure medications in the IV form. For details, please refer to the orders. Continue pain medications. Heparin subcutaneously for prophylaxis. PBP/NIS DR: QUIANA/richard TID: [id number]
--- NOTE | 2021-02-05 11:55 | PDOC2 ---
GI CONSULT Date of Service: DATE: 02/05/21 TIME: 11:44 Reason For Consult: diverticulitis HPI: HPI: 60 y/o female who we've seen in the past. To ER w/ suprapubic/LLQ pain since last night. Associated w/ vomiting x 1. Denies reflux/heartburn, dysphagia, hematemesis, hematochezia, melena, diarrhea, constipation, and weight loss. H/o GERD controlled w/ pantoprazole QD. We last saw here in 2018 - had abdominal pain w/ abnormal SB loops on CT (cause unclear). EGD by Dr. Dubois during hospitalization w/ grade 1 reflux (biopsies negative for Roy's), non-specific antral erythema (biopsies negative for H. pylori), and normal duodenum (random biopsies negative for sprue). Colonoscopy by Dr. Bae in 10/2018 showed solitary diverticulum and one adenoma. H/o ischemic colitis in 2008 on colonoscopy. No GB, liver, pancreas, or PUD history. PMH: PMH: CAD, HTN, UTI, OA hysterectomy FH: Family History: No pertinent hx Social History: ALCOHOL: none Drugs: None ROS: GEN: Denies fevers, chills, sweats HEENT: Denies blurred vision, sore throat CV: Denies chest pain RESP: Denies shortness of air, cough GI: Per HPI : Denies hematuria, dysuria ENDO: Denies weight changes NEURO: Denies confusion, dizziness MSK: Denies weakness, joint pain/swelling SKIN: Denies jaundice, pruritus Vitals: Vitals: Vital Signs Date Time Temp Pulse Resp B/P (MAP) Pulse Ox O2 Delivery O2 Flow Rate FiO2 02/05/21 10:30 89 18 128/59 (82) 96 Room Air 02/05/21 04:43 98.7 98.7 Labs: Labs: Laboratory Tests Test 02/05/21 04:35 02/05/21 04:37 02/05/21 06:12 Urine Collection Type Unknown Urine Color Yellow Urine Clarity Clear Urine pH 6.0 (<5.0-8.0) Urine Specific [place] >=1.030 (1.000-1.030) Urine Protein Negative mg/dL (NEG-TRACE) Urine Glucose (UA) Negative mg/dL (NEG) Urine Ketones (Stick) Trace mg/dL (NEG) Urine Blood Negative (NEG) Urine Nitrite Negative (NEG) Urine Bilirubin Negative (NEG) Urine Urobilinogen Dipstick 1.0 mg/dL (0.2 mg/dL) Urine Leukocyte Esterase Negative (NEG) Urine RBC 1-2 /HPF (0-2) Urine WBC Occ /HPF (0-4) Urine Squamous Epithelial Cells Mod /LPF Urine Bacteria 0 /HPF (0-FEW) Urine Mucus Mod /LPF White Blood Count 9.0 x10^3/uL (4.0-11.0) Red Blood Count 4.46 x10^6/uL (3.50-5.40) Hemoglobin 13.4 g/dL (12.0-15.5) Hematocrit 40.1 % (36.0-47.0) Mean Corpuscular Volume 90 fL (79-100) Mean Corpuscular Hemoglobin 30 pg (25-35) Mean Corpuscular Hemoglobin Concent 33 g/dL (31-37) Red Cell Distribution Width 13.6 % (11.5-14.5) Platelet Count 337 x10^3/uL (140-400) Neutrophils (%) (Auto) 85 % (31-73) Lymphocytes (%) (Auto) 9 % (24-48) Monocytes (%) (Auto) 5 % (0-9) Eosinophils (%) (Auto) 0 % (0-3) Basophils (%) (Auto) 0 % (0-3) Neutrophils # (Auto) 7.6 x10^3/uL (1.8-7.7) Lymphocytes # (Auto) 0.8 x10^3/uL (1.0-4.8) Monocytes # (Auto) 0.5 x10^3/uL (0.0-1.1) Eosinophils # (Auto) 0.0 x10^3/uL (0.0-0.7) Basophils # (Auto) 0.0 x10^3/uL (0.0-0.2) Sodium Level 135 mmol/L (136-145) Potassium Level 4.6 mmol/L (3.5-5.1) Chloride Level 99 mmol/L (98-107) Carbon Dioxide Level 31 mmol/L (21-32) Anion Gap 5 (6-14) Blood Urea Nitrogen 20 mg/dL (7-20) Creatinine 1.0 mg/dL (0.6-1.0) Estimated GFR (Cockcroft-Gault) 68.7 BUN/Creatinine Ratio 20 (6-20) Glucose Level 126 mg/dL (70-99) Calcium Level 9.1 mg/dL (8.5-10.1) Total Bilirubin 0.6 mg/dL (0.2-1.0) Aspartate Amino Transf (AST/SGOT) 20 U/L (15-37) Alanine Aminotransferase (ALT/SGPT) 32 U/L (14-59) Alkaline Phosphatase 95 U/L (46-116) Total Protein 7.4 g/dL (6.4-8.2) Albumin 4.1 g/dL (3.4-5.0) Albumin/Globulin Ratio 1.2 (1.0-1.7) Lactic Acid Level 1.3 mmol/L (0.4-2.0) Allergies: Coded Allergies: amoxicillin (Verified Allergy, Intermediate, 08/14/18) ciprofloxacin (Verified Allergy, Intermediate, Itching, 08/14/18) ciprofloxacin HCl (Verified Allergy, Intermediate, Itching, 08/14/18) clavulanic acid (Verified Allergy, Intermediate, 08/14/18) Medications: Current Medications Medications (Trade) Dose Ordered Sig/Annika Route PRN Reason Start Time Stop Time Status Last Admin Dose Admin Sodium Chloride 1,000 ml @ 1,000 mls/hr 1X ONCE IV 02/05/21 05:00 02/05/21 05:59 DC 02/05/21 05:09 Ondansetron HCl (Zofran) 4 mg 1X ONCE IVP 02/05/21 05:00 02/05/21 05:02 DC 02/05/21 05:09 Fentanyl Citrate (Fentanyl 2ml Vial) 75 mcg 1X ONCE IVP 02/05/21 05:00 02/05/21 05:02 DC 02/05/21 05:09 Iohexol (Omnipaque 350 Mg/ml) 75 ml 1X ONCE IV 02/05/21 05:30 02/05/21 05:34 DC 02/05/21 05:51 Metronidazole (Flagyl) 500 mg 1X ONCE PO 02/05/21 07:15 02/05/21 07:16 DC 02/05/21 07:21 Morphine Sulfate (Morphine Sulfate) 4 mg 1X ONCE IVP 02/05/21 07:15 02/05/21 07:16 DC 02/05/21 07:21 Morphine Sulfate (Morphine Sulfate) 4 mg PRN Q2HR PRN IVP PAIN 02/05/21 07:30 02/05/21 10:10 DC 02/05/21 10:06 Sodium Chloride 1,000 ml @ 75 mls/hr [id number] IV 02/05/21 07:30 02/05/21 09:43 DC 02/05/21 07:30 Imaging: Imaging: CTA A/P w/ IV contrast 02/05 Findings: There is calcification of the candelaria of the aorta and great vessels without aneurysm or dissection. The celiac axis and SMA are patent. The renal arteries are patent. There is mild wall thickening of the sigmoid colon with mild surrounding inflammation. Liver: 2 cysts in the right lobe Spleen: Unremarkable Pancreas: Unremarkable Adrenal Glands: Unremarkable Kidneys: Small cyst on the left There is no mass or lymphadenopathy. There is no free air. There is no free fluid. The urinary bladder appears normal. Impression: Multiple thickening surrounding inflammation involving the sigmoid colon. This could be diverticulitis but could be inflammatory or infectious colitis. There is no air in the wall to suggest ischemic colitis. PE: GEN: NAD HEENT: Atraumatic, PERRL LUNGS: CTAB HEART: RRR ABD: NABS, S/ND, LLQ discomfort EXTREMITY: No edema SKIN: No rashes, no jaundice NEURO/PSYCH: A & O 3 A/P: A/P: Lower abd pain - mostly LLQ now Abnormal CT - multiple thickening surrounding inflammation involving the sigmoid colon H/o GERD - controlled w/ PPI Diverticulosis H/o ischemic colitis (2008) CRC screen, h/o adenomatous polyps - UTD (2018) -- Suspect diverticulitis. NPO (sips okay), continue antibiotics - consider changing all to IV if vomiting ongoing. Resume PPI - IV for now, change to PO as able. NEGIN OATES Feb 05, 2021 11:55
[2021-02-05] MEDS: MORPHINE SULFATE 4 MG/ML INJ. IVP PRN ×3 (12:45→20:59)
[2021-02-05] MEDS: cefTRIAXone IV Push 1 GM VIAL. IVP SCH (14:31)
[2021-02-05] MEDS: PANTOPRAZOLE IV PUSH 40 MG VIAL. IVP SCH (14:31)
[2021-02-05] MEDS: HEPARIN for SUB-Q USE 5,000 UNIT/ML VIAL. SQ SCH ×2 (14:53→20:04)
[2021-02-05] MEDS: METOPROLOL IV PUSH 5 MG/5 ML VIAL. IVP SCH ×2 (14:56→17:05)
[2021-02-05 15:00] VITALS: BP 133/64
[2021-02-05 19:00] VITALS: BP 129/57
[2021-02-05 23:00] VITALS: BP 110/54
[2021-02-06] MEDS: MORPHINE SULFATE 4 MG/ML INJ. IVP PRN ×5 (02:28→21:03)
[2021-02-06 02:31] VITALS: BP 127/53
[2021-02-06] MEDS: metroNIDAZOLE 500 MG TABLET PO SCH ×3 (05:16→21:02)
[2021-02-06 07:15] VITALS: BP 126/50
[2021-02-06 07:15] LABS: ALBUMIN 3.1 g/dL (3.4-5.0); ALBUMIN/GLOBULIN RATIO 1.1 (1.0-1.7); CALCIUM 8.4 mg/dL (8.5-10.1); CREATININE 0.9 mg/dL (0.6-1.0); GFR 77.5; POTASSIUM 4.4 mmol/L (3.5-5.1); TOTAL BILIRUBIN 0.7 mg/dL (0.2-1.0); TOTAL PROTEIN 5.9 g/dL (6.4-8.2)
[2021-02-06 07:17] LABS: BASO % 0 % (0-3); EOS # 0.1 x10^3/uL (0.0-0.7); EOS % 2 % (0-3); HEMATOCRIT 35.6 % (36.0-47.0); LYMPH # 2.1 x10^3/uL (1.0-4.8); LYMPH % 27 % (24-48); MEAN CORPUSCULAR HEMOGLOBIN 31 pg (25-35); MEAN CORPUSCULAR HGB CONC 34 g/dL (31-37); MEAN CORPUSCULAR VOLUME 91 fL (79-100); MONO # 0.7 x10^3/uL (0.0-1.1); MONO % 9 % (0-9); NEUT # 4.9 x10^3/uL (1.8-7.7); NEUT % 62 % (31-73); PLATELET COUNT 283 x10^3/uL (140-400); RED BLOOD COUNT 3.91 x10^6/uL (3.50-5.40); RED CELL DISTRIBUTION WIDTH 14.2 % (11.5-14.5); WHITE BLOOD COUNT 7.8 x10^3/uL (4.0-11.0)
[2021-02-06] MEDS: PANTOPRAZOLE IV PUSH 40 MG VIAL. IVP SCH (08:31)
[2021-02-06] MEDS: HEPARIN for SUB-Q USE 5,000 UNIT/ML VIAL. SQ SCH ×2 (08:41→20:59)
--- NOTE | 2021-02-06 09:12 | PDOC ---
IM PROGRESS NOTES- Subjective Subjective Complaints of abdominal pain and nausea. Symptoms are improving Objective Vitals/I&O Vital Signs Date Time Temp Pulse Resp B/P (MAP) Pulse Ox O2 Delivery O2 Flow Rate FiO2 02/06/21 08:31 85 126/50 02/06/21 08:14 Room Air 02/06/21 07:15 98.9 18 94 98.9 I & O 02/05/21 02/05/21 02/06/21 15:00 23:00 07:00 Intake Total 50 ml Balance 50 ml Physical Exam Physical Exam General Appearance - alert and in no distress Chest - decreased breath sounds at bases Heart - S1 and S2 normal Abdomen - soft, mild tenderness left lower quadrant of abdomen Neurological - alert and oriented Musculoskeletal - generalized weakness Extremities - no edema Labs Laboratory Tests Test 02/06/21 06:10 White Blood Count 7.8 x10^3/uL (4.0-11.0) Red Blood Count 3.91 x10^6/uL (3.50-5.40) Hemoglobin 12.0 g/dL (12.0-15.5) Hematocrit 35.6 % (36.0-47.0) L Mean Corpuscular Volume 91 fL (79-100) Mean Corpuscular Hemoglobin 31 pg (25-35) Mean Corpuscular Hemoglobin Concent 34 g/dL (31-37) Red Cell Distribution Width 14.2 % (11.5-14.5) Platelet Count 283 x10^3/uL (140-400) Neutrophils (%) (Auto) 62 % (31-73) Lymphocytes (%) (Auto) 27 % (24-48) Monocytes (%) (Auto) 9 % (0-9) Eosinophils (%) (Auto) 2 % (0-3) Basophils (%) (Auto) 0 % (0-3) Neutrophils # (Auto) 4.9 x10^3/uL (1.8-7.7) Lymphocytes # (Auto) 2.1 x10^3/uL (1.0-4.8) Monocytes # (Auto) 0.7 x10^3/uL (0.0-1.1) Eosinophils # (Auto) 0.1 x10^3/uL (0.0-0.7) Basophils # (Auto) 0.0 x10^3/uL (0.0-0.2) Sodium Level 140 mmol/L (136-145) Potassium Level 4.4 mmol/L (3.5-5.1) Chloride Level 103 mmol/L (98-107) Carbon Dioxide Level 30 mmol/L (21-32) Anion Gap 7 (6-14) Blood Urea Nitrogen 13 mg/dL (7-20) Creatinine 0.9 mg/dL (0.6-1.0) Estimated GFR (Cockcroft-Gault) 77.5 BUN/Creatinine Ratio 14 (6-20) Glucose Level 83 mg/dL (70-99) Calcium Level 8.4 mg/dL (8.5-10.1) L Total Bilirubin 0.7 mg/dL (0.2-1.0) Aspartate Amino Transferase (AST) 12 U/L (15-37) L Alanine Aminotransferase (ALT) 22 U/L (14-59) Alkaline Phosphatase 72 U/L (46-116) Total Protein 5.9 g/dL (6.4-8.2) L Albumin 3.1 g/dL (3.4-5.0) L Albumin/Globulin Ratio 1.1 (1.0-1.7) Laboratory Tests 02/06/21 06:10 Laboratory Tests 02/06/21 06:10 Meds Current Medications Medications (Trade) Dose Ordered Sig/Annika Route PRN Reason Start Time Stop Time Status Last Admin Dose Admin Metoprolol Tartrate (Lopressor Vial) 5 mg Q6HRS IVP 02/05/21 12:00 02/05/21 18:38 DC 02/05/21 14:56 Ceftriaxone Sodium (Rocephin) 1 gm Q24H IVP 02/05/21 11:00 02/05/21 14:31 Potassium Chloride/Sodium Chloride 1,000 ml @ 100 mls/hr Q10H IV 02/05/21 11:00 02/05/21 22:30 Heparin Sodium (Porcine) (Heparin Sodium) 5,000 unit Q12HR SQ 02/05/21 11:00 02/06/21 08:41 Morphine Sulfate (Morphine Sulfate) 4 mg PRN Q2HR PRN IVP SEVERE PAIN 7-10 02/05/21 10:15 02/06/21 07:45 Pantoprazole Sodium (PROTONIX VIAL for IV PUSH) 40 mg DAILYAC IVP 02/05/21 12:00 02/06/21 08:31 Amlodipine Besylate (Norvasc) 5 mg DAILY PO 02/05/21 19:00 02/06/21 08:31 Assessment Assessment 1. Acute abdominal pain, possible diverticulitis versus ischemic colitis. 2. Hypertension. 3. Gastroesophageal reflux disease. 4. History of ischemic colitis. PLAN: Admit to [facility]. Start IV Rocephin and Flagyl. Consult Dr. Bae for GI evaluation and management. Keep her n.p.o. Give blood pressure medications in the IV form. For details, please refer to the orders. Continue pain medications. Heparin subcutaneously for prophylaxis. GI notes reviewed. Clinically acute diverticulitis. Continue IV Rocephin and Flagyl. Give medications with sips. Plan Plan For more details regarding further plans, please refer to the orders. Justifications for Admission Other Justification DENZEL LOERA MD Feb 06, 2021 09:12
--- NOTE | 2021-02-06 10:03 | NUR ---
SW following. Discussed with RN, pt from home with , room air, NPO. IV abx. GI following. RN advised no SW needs at this time. SW will continue to follow.
[2021-02-06 11:06] VITALS: BP 140/47
--- NOTE | 2021-02-06 11:11 | PDOC ---
Date of Service: DATE: 02/06/21 TIME: 11:09 Subjective: Subjective: I saw her earlier this morning. Pain is still there but improved. No n/v, taking some sips of water, passing gas. Objective: Vital Signs: Vital Signs Date Time Temp Pulse Resp B/P (MAP) Pulse Ox O2 Delivery O2 Flow Rate FiO2 02/06/21 11:06 98.4 78 20 140/47 (78) 96 Room Air 98.4 Labs: Laboratory Tests Test 02/06/21 06:10 White Blood Count 7.8 x10^3/uL Red Blood Count 3.91 x10^6/uL Hemoglobin 12.0 g/dL Hematocrit 35.6 % Mean Corpuscular Volume 91 fL Mean Corpuscular Hemoglobin 31 pg Mean Corpuscular Hemoglobin Concent 34 g/dL Red Cell Distribution Width 14.2 % Platelet Count 283 x10^3/uL Neutrophils (%) (Auto) 62 % Lymphocytes (%) (Auto) 27 % Monocytes (%) (Auto) 9 % Eosinophils (%) (Auto) 2 % Basophils (%) (Auto) 0 % Neutrophils # (Auto) 4.9 x10^3/uL Lymphocytes # (Auto) 2.1 x10^3/uL Monocytes # (Auto) 0.7 x10^3/uL Eosinophils # (Auto) 0.1 x10^3/uL Basophils # (Auto) 0.0 x10^3/uL Sodium Level 140 mmol/L Potassium Level 4.4 mmol/L Chloride Level 103 mmol/L Carbon Dioxide Level 30 mmol/L Anion Gap 7 Blood Urea Nitrogen 13 mg/dL Creatinine 0.9 mg/dL Estimated GFR (Cockcroft-Gault) 77.5 BUN/Creatinine Ratio 14 Glucose Level 83 mg/dL Calcium Level 8.4 mg/dL Total Bilirubin 0.7 mg/dL Aspartate Amino Transf (AST/SGOT) 12 U/L Alanine Aminotransferase (ALT/SGPT) 22 U/L Alkaline Phosphatase 72 U/L Total Protein 5.9 g/dL Albumin 3.1 g/dL Albumin/Globulin Ratio 1.1 PE: GEN: NAD LUNGS: CTAB HEART: RRR ABD: less LLQ discomfort, quiet bowel sounds, non-distended NEURO/PSYCH: A & O 3 A/P: Diverticulitis -- Tolerating water so will try clear liquid diet cautiously. Continue antibiotics, support. Justicifation of Admission Dx: Justifications for Admission: Justification of Admission Dx: Yes NEGIN OATES Feb 06, 2021 11:11
[2021-02-06] MEDS: cefTRIAXone IV Push 1 GM VIAL. IVP SCH (11:14)
[2021-02-06 15:09] VITALS: BP 106/60
[2021-02-06 19:00] VITALS: BP 119/53
[2021-02-06 23:00] VITALS: BP 116/49
[2021-02-07 03:00] VITALS: BP 122/64
[2021-02-07] MEDS: MORPHINE SULFATE 4 MG/ML INJ. IVP PRN ×3 (04:56→18:35)
[2021-02-07] MEDS: metroNIDAZOLE 500 MG TABLET PO SCH ×3 (05:40→22:35)
[2021-02-07 07:00] VITALS: BP 125/62
[2021-02-07 07:20] LABS: BASO % 1 % (0-3); EOS # 0.1 x10^3/uL (0.0-0.7); EOS % 2 % (0-3); HEMATOCRIT 36.1 % (36.0-47.0); HEMOGLOBIN 11.9 g/dL (12.0-15.5); LYMPH # 1.6 x10^3/uL (1.0-4.8); LYMPH % 29 % (24-48); MEAN CORPUSCULAR HEMOGLOBIN 30 pg (25-35); MEAN CORPUSCULAR HGB CONC 33 g/dL (31-37); MEAN CORPUSCULAR VOLUME 90 fL (79-100); MONO # 0.4 x10^3/uL (0.0-1.1); MONO % 7 % (0-9); NEUT # 3.2 x10^3/uL (1.8-7.7); NEUT % 61 % (31-73); PLATELET COUNT 287 x10^3/uL (140-400); RED CELL DISTRIBUTION WIDTH 13.3 % (11.5-14.5); WHITE BLOOD COUNT 5.3 x10^3/uL (4.0-11.0)
[2021-02-07 08:13] LABS: CALCIUM 8.7 mg/dL (8.5-10.1); CREATININE 0.9 mg/dL (0.6-1.0); GFR 77.5; POTASSIUM 3.8 mmol/L (3.5-5.1)
[2021-02-07] MEDS: PANTOPRAZOLE IV PUSH 40 MG VIAL. IVP SCH (08:26)
[2021-02-07] MEDS: HEPARIN for SUB-Q USE 5,000 UNIT/ML VIAL. SQ SCH ×2 (08:30→20:21)
--- NOTE | 2021-02-07 09:13 | PDOC ---
IM PROGRESS NOTES- Subjective Subjective Abdominal pain and nausea are improving Objective Vitals/I&O Vital Signs Date Time Temp Pulse Resp B/P (MAP) Pulse Ox O2 Delivery O2 Flow Rate FiO2 02/07/21 08:25 73 125/62 02/07/21 07:00 98.1 16 95 Room Air 98.1 I & O 02/06/21 02/06/21 02/07/21 15:00 23:00 07:00 Intake Total 180 ml 1600 ml 0 ml Balance 180 ml 1600 ml 0 ml Physical Exam Physical Exam General Appearance - alert and in no distress Chest - decreased breath sounds at bases Heart - S1 and S2 normal Abdomen - soft, non tender Neurological - alert and oriented Musculoskeletal - generalized weakness Extremities - no edema Labs Laboratory Tests Test 02/07/21 06:50 White Blood Count 5.3 x10^3/uL (4.0-11.0) Red Blood Count 4.00 x10^6/uL (3.50-5.40) Hemoglobin 11.9 g/dL (12.0-15.5) L Hematocrit 36.1 % (36.0-47.0) Mean Corpuscular Volume 90 fL (79-100) Mean Corpuscular Hemoglobin 30 pg (25-35) Mean Corpuscular Hemoglobin Concent 33 g/dL (31-37) Red Cell Distribution Width 13.3 % (11.5-14.5) Platelet Count 287 x10^3/uL (140-400) Neutrophils (%) (Auto) 61 % (31-73) Lymphocytes (%) (Auto) 29 % (24-48) Monocytes (%) (Auto) 7 % (0-9) Eosinophils (%) (Auto) 2 % (0-3) Basophils (%) (Auto) 1 % (0-3) Neutrophils # (Auto) 3.2 x10^3/uL (1.8-7.7) Lymphocytes # (Auto) 1.6 x10^3/uL (1.0-4.8) Monocytes # (Auto) 0.4 x10^3/uL (0.0-1.1) Eosinophils # (Auto) 0.1 x10^3/uL (0.0-0.7) Basophils # (Auto) 0.0 x10^3/uL (0.0-0.2) Sodium Level 140 mmol/L (136-145) Potassium Level 3.8 mmol/L (3.5-5.1) Chloride Level 103 mmol/L (98-107) Carbon Dioxide Level 29 mmol/L (21-32) Anion Gap 8 (6-14) Blood Urea Nitrogen 9 mg/dL (7-20) Creatinine 0.9 mg/dL (0.6-1.0) Estimated GFR (Cockcroft-Gault) 77.5 Glucose Level 125 mg/dL (70-99) H Calcium Level 8.7 mg/dL (8.5-10.1) Laboratory Tests 02/07/21 06:50 Laboratory Tests 02/07/21 06:50 Assessment Assessment 1. Acute abdominal pain, possible diverticulitis versus ischemic colitis. 2. Hypertension. 3. Gastroesophageal reflux disease. 4. History of ischemic colitis. PLAN: Admit to [facility]. Start IV Rocephin and Flagyl. Consult Dr. Bae for GI evaluation and management. Keep her n.p.o. Give blood pressure medications in the IV form. For details, please refer to the orders. Continue pain medications. Heparin subcutaneously for prophylaxis. GI notes reviewed. Clinically acute diverticulitis. Continue IV Rocephin and Flagyl. Give medications with sips. Clinically improving slowly. Continue clear liquid diet. Advance diet as to lerated per GI. Plan Plan For more details regarding further plans, please refer to the orders. Justifications for Admission Other Justification DENZEL LOERA MD Feb 07, 2021 09:12
[2021-02-07] MEDS ORDERED: METR-34 PO (09:18)
[2021-02-07] MEDS ORDERED: CEFP200T PO (09:18)
--- NOTE | 2021-02-07 09:21 | DISCH ---
DISCHARGE INSTRUCTIONS Condition on Discharge Condition on Discharge: Stable Activity After Discharge Activity Instructions for Disc: Activity as tolerated Weight Bearing Status after Di: As tolerated Diet after Discharge Diet after Discharge: GI Soft Contacting the DRClaudy after DC Call your doctor for: Concerns you may have Follow-Up Follow up with: Dr.Pratip Loera in 5 days DENZEL LOERA MD Feb 07, 2021 09:21
[2021-02-07] MEDS: ATORVASTATIN CALCIUM 40 MG TABLET. PO SCH (09:27)
[2021-02-07] MEDS: SPIRONOLACTONE 25 MG TABLET PO SCH (09:28)
--- NOTE | 2021-02-07 10:07 | NUR ---
SW following. Discussed with RN, pt now on a clear liquid diet. Per RN, Dr. Hernandez plans likely discharge home tomorrow - need GI clearance. RN advised no SW discharge needs. SW will continue to follow.
--- NOTE | 2021-02-07 10:22 | PDOC ---
Date of Service: DATE: 02/07/21 TIME: 10:20 Subjective: Subjective: "Much better." Asking to go home. Had pain meds early this morning. Tolerating clears. Objective: Vital Signs: Vital Signs Date Time Temp Pulse Resp B/P (MAP) Pulse Ox O2 Delivery O2 Flow Rate FiO2 02/07/21 08:25 73 125/62 02/07/21 07:00 98.1 16 95 Room Air 98.1 Labs: Laboratory Tests Test 02/07/21 06:50 White Blood Count 5.3 x10^3/uL Red Blood Count 4.00 x10^6/uL Hemoglobin 11.9 g/dL Hematocrit 36.1 % Mean Corpuscular Volume 90 fL Mean Corpuscular Hemoglobin 30 pg Mean Corpuscular Hemoglobin Concent 33 g/dL Red Cell Distribution Width 13.3 % Platelet Count 287 x10^3/uL Neutrophils (%) (Auto) 61 % Lymphocytes (%) (Auto) 29 % Monocytes (%) (Auto) 7 % Eosinophils (%) (Auto) 2 % Basophils (%) (Auto) 1 % Neutrophils # (Auto) 3.2 x10^3/uL Lymphocytes # (Auto) 1.6 x10^3/uL Monocytes # (Auto) 0.4 x10^3/uL Eosinophils # (Auto) 0.1 x10^3/uL Basophils # (Auto) 0.0 x10^3/uL Sodium Level 140 mmol/L Potassium Level 3.8 mmol/L Chloride Level 103 mmol/L Carbon Dioxide Level 29 mmol/L Anion Gap 8 Blood Urea Nitrogen 9 mg/dL Creatinine 0.9 mg/dL Estimated GFR (Cockcroft-Gault) 77.5 Glucose Level 125 mg/dL Calcium Level 8.7 mg/dL PE: GEN: NAD LUNGS: CTAB HEART: RRR ABD: BS+, soft, non-tender LLQ NEURO/PSYCH: A & O 3 A/P: Diverticulitis -- Try full liquids, consider changing to PO atbx. Will check in again later today w/ Dr. Bae. Justicifation of Admission Dx: Justifications for Admission: Justification of Admission Dx: Yes NEGIN OATES Feb 07, 2021 10:22
[2021-02-07] MEDS: cefTRIAXone IV Push 1 GM VIAL. IVP SCH (10:40)
[2021-02-07 11:00] VITALS: BP 126/50
[2021-02-07 15:16] VITALS: BP 118/62
[2021-02-07] MEDS: CARVEDILOL 12.5 MG TABLET. PO SCH (17:00)
[2021-02-07 18:57] VITALS: BP 120/68
[2021-02-07] MEDS: LACTOBACILLUS RHAMNOSUS GG 1 CAPSULE. PO SCH (20:17)
[2021-02-07 22:51] VITALS: BP 113/59
[2021-02-08 02:38] VITALS: BP 115/52
[2021-02-08] MEDS: MORPHINE SULFATE 4 MG/ML INJ. IVP PRN (02:52)
[2021-02-08] MEDS: metroNIDAZOLE 500 MG TABLET PO SCH (06:00)
[2021-02-08 07:00] VITALS: BP 114/60
[2021-02-08] MEDS ORDERED: PANTOPRAZOLE 40 MG TABLET.DR. PO SCH (07:30)
[2021-02-08] MEDS: CARVEDILOL 12.5 MG TABLET. PO SCH (08:51)
[2021-02-08] MEDS: LACTOBACILLUS RHAMNOSUS GG 1 CAPSULE. PO SCH (08:51)
[2021-02-08] MEDS: ATORVASTATIN CALCIUM 40 MG TABLET. PO SCH (08:52)
[2021-02-08] MEDS: SPIRONOLACTONE 25 MG TABLET PO SCH (08:52)
[2021-02-08] MEDS: HEPARIN for SUB-Q USE 5,000 UNIT/ML VIAL. SQ SCH (08:57)
[2021-02-08] MEDS ORDERED: HYDROcodone/APAP 5/325MG 1 TAB TABLET PO PRN (10:30)
[2021-02-08] MEDS: cefTRIAXone IV Push 1 GM VIAL. IVP SCH (10:39)
[2021-02-08 11:00] VITALS: BP 112/55
--- NOTE | 2021-02-08 12:07 | PDOC ---
PROGRESS NOTES Date of Service: DATE: 02/08/21 TIME: 12:05 Subjective Subjective feels good want to go home today Objective Objective Vital Signs Date Time Temp Pulse Resp B/P (MAP) Pulse Ox O2 Delivery O2 Flow Rate FiO2 02/08/21 11:00 98.2 87 18 112/55 (74) 96 Room Air 98.2 Physical Exam Abdomen: Soft Heart: Regular rate, Normal S1 Extremities: No clubbing, No cyanosis General: Alert HEENT: Atraumatic MUSCULOSKELETAL: No joint tenderness, No deformity Neck: No JVD Neuro: Normal gait Psych/Mental Status: Mental status NL Diagnosis Problem List Problems Medical Problems: (1) Abdominal pain Status: Acute (2) Acute diverticulitis Status: Acute Assessment Assessment 1. Acute abdominal pain, possible diverticulitis versus ischemic colitis. 2. Hypertension. 3. Gastroesophageal reflux disease. 4. History of ischemic colitis. PLAN: tolerating soft diet. d/c home today po antibiotics for 1 week f/u pcp in 1-2 weeks Plan Plan of Care Problems Medical Problems: (1) Abdominal pain Status: Acute (2) Acute diverticulitis Status: Acute Comment Review of Relevant I have reviewed the following items anne (where applicable) has been applied. Medications Current Medications Acetaminophen/ Hydrocodone Bitart (Lortab 5/325) 1 tab PRN Q6HRS PRN PO PAIN Last administered on 02/08/21at 10:39; Start 02/08/21 at 10:30 Carvedilol (Coreg) 12.5 mg BIDWMEALS PO Last administered on 02/08/21at 08:51; Start 02/07/21 at 17:00 Lactobacillus Rhamnosus (Culturelle) 1 cap BID PO Last administered on 02/08/21at 08:51; Start 02/07/21 at 21:00 Pantoprazole Sodium (Protonix) 40 mg DAILYAC PO Last administered on 02/08/21at 08:51; Start 02/08/21 at 07:30 Vitals/I & O Vital Sign - Last 24 Hours 02/07/21 02/07/21 02/07/21 02/07/21 15:16 17:00 18:35 18:57 Temp 98.1 98.0 98.1 98.0 Pulse 73 73 75 Resp 16 17 B/P (MAP) 118/62 (80) 118/62 120/68 (85) Pulse Ox 95 96 O2 Delivery Room Air Room Air Room Air 02/07/21 02/07/21 02/07/21 02/08/21 19:05 20:00 22:51 02:38 Temp 97.8 97.8 97.8 97.8 Pulse 83 80 Resp 18 18 B/P (MAP) 113/59 (77) 115/52 (73) Pulse Ox 96 97 98 O2 Delivery Room Air Room Air Room Air Room Air 02/08/21 02/08/21 02/08/21 02/08/21 02:52 03:22 07:00 08:00 Temp 98.1 98.1 Pulse 76 Resp 18 B/P (MAP) 114/60 (78) Pulse Ox 98 98 94 O2 Delivery Room Air Room Air Room Air Room Air 02/08/21 02/08/21 02/08/21 02/08/21 08:51 08:51 11:00 11:00 Temp 98.2 98.2 Pulse 76 76 87 Resp 18 B/P (MAP) 114/60 114/60 112/55 (74) Pulse Ox 94 96 O2 Delivery Room Air Room Air Justifications for Admission Other Justification WESTON RAMSEY MD Feb 08, 2021 12:07
--- NOTE | 2021-02-08 13:15 | NUR ---
Patients IV's removed and provided with discharge instructions. Patient walked to hospital entrance with RN and family member
== END 2021-02-08 13:20 | disposition home or self-care (01) | DRG 392 ==
LOC: ER 01:35 → ED HOLD 07:16 → 4 NORTH 11:45
PROVIDERS: ADMIT Internal Medicine; ATTEND Internal Medicine
DX: K57.32 Diverticulitis of large intestine without perforation or abscess without bleeding (principal); I10 Essential (primary) hypertension; I25.10 Atherosclerotic heart disease of native coronary artery without angina pectoris; K21.9 Gastro-esophageal reflux disease without esophagitis; Z82.49 Family history of ischemic heart disease and other diseases of the circulatory system; Z87.19 Personal history of other diseases of the digestive system; Z90.49 Acquired absence of other specified parts of digestive tract; Z90.710 Acquired absence of both cervix and uterus
CPT/HCPCS: 36415; 74174; 80048; 80053; 81001; 83605; 85025; 96361; 96374; 96375; C9113; J0696; J1644; J2270; J2405; J3010; J3480; J3490; J7030; Q9967; 99285-25; G0378